=== PATIENT | female | born 1955 | race Caucasian/White ===

== ENCOUNTER 2023-05-19 15:07 | Inpatient (IN) | payer MEDICARE, SELFPAY ==
[2023-05-19] VITALS (36 sets, daily range): BP systolic 83–119; BP diastolic 44–90; BMI 31.9; BMI 32.0
[2023-05-19 12:27] LABS: % Basophils 0.2 % (0-2); % Eosinophils 0.3 % (0-6); % Immature Granulocytes 2.5 % (0-0.5); % Lymphocytes 3.1 % (20.5-51.1); % Neutrophils 87.9 % (42.2-75.2); Absolute Immature Granulocytes 0.4 10^3/uL (0-0.05); Absolute Lymphocytes 0.5 10^3/uL (1.2-3.4); Absolute Monocytes 0.9 10^3/uL (0.1-0.6); Absolute Neutrophils 12.8 10^3/uL (1.4-6.5); Hematocrit 38.8 % (37.0-47.0); Mean Corp Hgb Conc. 33.5 g/dL (33.0-37.0); Mean Corpuscular Hgb 30.1 pg (27.0-31.0); Mean Corpuscular Volume 89.8 fL (81.0-99.0); Mean Platelet Volume 9.8 fL (7.4-10.4); Nucleated Red Blood Cells % 0 %; Platelet Count 196 10^3/uL (130-400); Red Blood Cell Count 4.32 10^6/uL (4.20-5.40); Red Cell Dist. Width 13.3 % (11.5-14.5); White Blood Cell Count 14.5 10^3/uL (4.8-10.8)
[2023-05-19 12:33] LABS: COVID-19 Antigen Negative (Negative)
--- NOTE | 2023-05-19 12:36 | ED.CVA ---
History of Present Illness
General
Chief Complaint: CVA/TIA Symptoms
Source: patient
Time Seen by Provider: 05/19/23 12:17
Onset of Stroke Symptoms
Onset of symptoms known: Yes
Date of onset of symptoms: 05/19/23
Travel History
Have you had any contact with someone who has COVID-19?: No
Do you have any symptoms of coronavirus? Fever > 100 degrees, chills, cough, shortness of breath, sore throat, loss of taste or smell, muscle aches, or headache?: No
History of Present Illness
History of Present Illness:
67-year-old female presents the emergency department due to difficulty walking, leaning to the left weakness in her left arm and shortness of breath. Her symptoms began at 8 AM when she woke up.
Past History
Past History
ED Past Medical History: Asthma, COPD, Fibromyalgia, HTN, Hypercholesterolemia, Renal failure (Status post renal transplant May 2018 right kidney), Psychiatric (Anxiety) and Other (Sarcoidosis); Negative CAD
ED Past Surgical History: Cholecystectomy and Urological (Bilateral Kidney transplants)
Social History
Tobacco: Former smoker
Alcohol: Occasional
Drug: Marijuana
Personal:
Living: with family
Employment: Employed
Family History
Family History: Hypertension, Cancer (Mother had breast cancer) and Other (Son has sarcoidosis)
Review of Systems
Review of Systems
Allergies reviewed?: Yes
All Other Systems: Not applicable
Constitutional: Reports no symptoms
EENT: Reports no symptoms
Respiratory: Reports cough and trouble breathing
Cardiac: Reports no symptoms
ABD/GI: Reports no symptoms
: Reports no symptoms
Musculoskeletal: Reports no symptoms
Skin: Reports no symptoms
Neurological: Reports weakness and other (ataxia)
Endocrine: Reports no symptoms
Hematologic/Lymphatic: Reports no symptoms
Psychiatric: Reports no symptoms
Phy Exam
Physical Exam
Physical Exam:
Physical Exam
General: Ill-appearing, temperature of 100.1
Neck: supple. no meningeal signs. normal posterior pharynx
Heart: s1/s2 regular rate and rhythm, no murmur. equal radial
pulses.
HEENT: Pupils equal round reactive to light, EOMI
Lungs: Moderate respiratory distress. Rhonchi bilaterally
Abdomen: normal bowel sounds. not tender. no CVAT
Neuro: alert and oriented. no focal neurological deficits cranial nerves II through XII intact
Skin: no rash
Psychiatric: well kept. interactive and cooperative
Extremities: no edema. no calf tenderness. negative homans. good distal pulses
Scores
NIH Stroke Score
Level of Consciousness: 0 - Alert
LOC Questions: 0-Answers both correctly
LOC Commands: 0-Performs both correctly
Best Horizontal Gaze: 0-Normal
Visual Lux: 0=Normal, no visual loss
Facial Palsy: 0=Normal, symmetrical
Motor - Right Arm: 0=No drift 10 seconds
Motor - Left Arm: 0=No drift 10 seconds
Motor - Right Le-No drift 5 seconds
Motor - Left Le-No drift 5 seconds
Limb Ataxia: 0-Absent
Sensation: 0-Normal
Best Language: 0-No aphasia
Dysarthria: 0-Normal
Extinction and Inattention: 0-No abnormality
Total Score:: 0
Thrombolytic Contraindication
Inclusion and Exclusion criteria reviewed: Yes
IAT Contraindications: NIHSS < 6
Course
Orders/Labs/Results
Orders:
Orders
05/19/23 11:43
Electrocardiogram (*1) Urgent
Reason for Study: Other
Other Reason for Exam: Possible Sepsis
EKG- Treatment ONCE
05/19/23 12:06
COVID-19 Antigen Urgent
Source: Nasal Swab
Complete Blood Count/With Diff Urgent
Comprehensive Metabolic Panel Urgent
Lactic Acid Q4H
Comment: ON ICE, CANCEL 2ND ORDER IF FIRST LACTIC ACID LEVEL <2
Blood Culture Q30M
MATT Source: Blood/Venous
Specimen Description:
Comment: FROM 2 SEPARATE SITES
Influenza A+B Rapid Molecular Urgent
MATT Source: Nasal Swab
Specimen Description:
05/19/23 12:24
CT Head W/o Iv Contrast Urgent
Comment:
Reason For Exam: ataxia, left side weakness, aphasia
05/19/23 12:25
CR Chest - 2 Views Urgent
Comment:
Reason For Exam: hypoxia
05/19/23 12:44
Blood Culture Routine
MATT Source: Blood/Venous
Specimen Description:
Date Specimen was Collected: 05/19/23
Time Specimen was Collected: 12:41
05/19/23 13:38
Cefepime HCl [Maxipime] 2,000 mg IV NOW STA
Vancomycin 1 Gram/200 ml [Vancocin] 1 gram in 200 ml IV NOW
05/19/23 15:45
Lactic Acid Q4H
Comment: ON ICE, CANCEL 2ND ORDER IF FIRST LACTIC ACID LEVEL <2
Abnormal Lab Results
05/19/23
12:06
WBC 14.5 H 10^3/uL
(4.8-10.8)
Abs Immat Gran (auto) 0.4 H 10^3/uL
(0-0.05)
Absolute Neuts (auto) 12.8 H 10^3/uL
(1.4-6.5)
Absolute Lymphs (auto) 0.5 L 10^3/uL
(1.2-3.4)
Absolute Monos (auto) 0.9 H 10^3/uL
(0.1-0.6)
Immature Gran % 2.5 H %
(0-0.5)
Neutrophils % 87.9 H %
(42.2-75.2)
Lymphocytes % 3.1 L %
(20.5-51.1)
Sodium 130 L mmol/L
(135-145)
Chloride 97 L mmol/L
(98-107)
BUN 43 H mg/dl
(7-17)
Creatinine 2.8 H mg/dL
(0.6-1.0)
Glucose 188 H mg/dl
(70-99)
Total Bilirubin 2.0 H mg/dl
(0.2-1.3)
Total Protein 5.9 L g/dl
(6.3-8.2)
05/19/23 12:06
05/19/23 12:06
Vital Signs
Initial and Last Documented VS:
Initial Vital Signs
Temp Pulse Resp BP
100.1 F 72 18 109/90
05/19/23 11:39 05/19/23 11:39 05/19/23 11:39 05/19/23 11:39
Last Documented Vital Signs
Temp Pulse Resp BP Pulse Ox
100.1 F 72 18 109/90 91
05/19/23 11:39 05/19/23 11:39 05/19/23 11:39 05/19/23 11:39 05/19/23 12:22
MDM/Problems Addressed
Differential Diagnosis Includes:
Intracranial hemorrhage, CVA, bilateral pneumonia, TIA, renal failure, CHF
MDM/Problems Addressed:
67-year-old female with bilateral pneumonia, likely TIA acute on chronic renal failure, respiratory insufficiency.
Chronic conditions affecting care: COPD and Neurological disorder
Acute Exacerbation and/or Progression of Chronic Illness: COPD and Neurological disorder
*Radiology
Radiology exam reviewed: radiology read reviewed (CT head no acute findings, chest x-ray bilateral pneumonia)
*Pulse Oximetry
Patient hypoxic: yes
*EKG
Interpreted by ED Provider?: Yes
EKG Intrepretation Date: 05/19/23
EKG Intrepretation Time: 11:52
Interpretation: normal
Comparison EKG: no changes
Heart Rate: 69
Rate: normal
Rhythm: sinus
[place]: normal axis
Interval: normal interval
QRS Pattern: normal QRS
Ischemia: no ischemia
*Vessel Manager Interpretation
Rate: normal
Interpretation: normal
Heart Rate: 66
Rhythm: sinus
*Critical Care Note
Total Time (30-74mins, 75-104mins- exclusive of procedures): 30
comment:
Critical care statement: A total of 30 minutes of critical care time was provided for this patient. This includes management of unstable vital signs, evaluation of the patient at bedside, reviewing the patient's pertinent medical records, discussion
with consultants, review of old EKGs and review of pertinent medical records. This time with separate from time utilized to perform the aforementioned documented procedures
Data Reviewed
Review of Other/Old Records Reveals: Records
Source: records (Prior admission for COPD exacerbation, discharge 05-18)
Patient Management
Social determinants of health affecting care: Living situation and Strong social support
Discussion with other providers: Hospitalist and [employer] (Neurology)
Escalation/DeEscalation of care consider admission/obs:
Admit indicated
Update Note
Update Note:
Symptoms began when patient awoke
ED Attending Note
-
Portions of this chart may have been created with voice recognition software.� Occasional wrong word or��sound alike� substitutions may have occurred due to the inherent limitations of voice recognition software.
Discharge Plan
Departure
Patient Disposition: Admit
Date of Disposition: 05/19/23
Time of Disposition: 13:40
Presentation/result/management discussed w/ accepting MD/DO: Hospitalist
Condition: Fair
Discharge Problem:
Bilateral pneumonia, Acute respiratory insufficiency, Acute renal failure, TIA (transient ischemic attack)
Prescriptions:
No Action
montelukast 10 MG tablet
10 mg PO HS
escitalopram oxalate 20 MG tablet
20 mg PO HS
Patient Comments:
02/09/2022: Pt states she is taking 60mg at HS, but pharmacy fill on 02/03 is 1 20mg tab daily
aripiprazole 10 MG tablet
10 mg PO HS 0RF
carvedilol 6.25 mg Tablet
6.25 mg PO BID
prednisone 5 mg tablet
5 mg PO DAILY
Hold Instructions: Start when done with tapering steroids
tacrolimus 1 mg capsule
1 mg PO QPM
oxycodone 5 mg tablet
10 mg PO HS
Patient Comments:
02/09/2022: last filled 01/27/22, 120 tabs for 30 days from [place]
Nexlizet 180-10 mg Tablet
1 tab PO DAILY
Breztri Aerosphere 160-9-4.8 mcg/actuation HFA aerosol inhaler
2 inh INHALATION BID
nifedipine [Procardia XL] 90 mg tablet extended release 24hr
90 mg PO DAILY Qty: 30 2RF
oxycodone 5 mg Tablet
5 mg PO Q8H PRN (Reason: pain)
Medical Marijuana
1 dose PO QHS PRN (Reason: pain or anxiety)
calcium carbonate [Calcium 600] 600 mg calcium (1,500 mg) Tablet
2,000 mg PO DAILY
furosemide 20 mg tablet
20 mg PO DAILY
albuterol sulfate 90 mcg/actuation HFA aerosol inhaler
2 puff INHALATION Q4H PRN (Reason: SOB)
tacrolimus 1 mg capsule
2 mg PO DAILY
cholecalciferol (vitamin D3) [Vitamin D3] 25 mcg (1,000 unit) Tablet
1,000 unit PO DAILY
gabapentin [Neurontin] 300 mg Capsule
300 mg PO HS
prednisone 10 mg Tablet
See Rx Instructions .ROUTE .COMPLEX Qty: 30 0RF
Rx Instructions:
Take By Mouth:
40 mg daily x3 days, 30 mg daily x3 days,
20 mg daily x3 days, 10 mg daily x3 days.
Referrals:
Brenda Braga PA-C [Family Provider] -
Interventions
Interventions:
*General Assessment Last Done: 05/19/23 12:19
ED- Fall Risk Assessment Last Done: 05/19/23 12:20
*ED COVID-19 Vaccine History Last Done: 05/19/23 12:19
ED- Pulmonary Assessment Last Done: 05/19/23 12:22
ED- Neurological Assessment Last Done: 05/19/23 12:20
ED- Cardiac Assessment Last Done: 05/19/23 12:20
[2023-05-19 12:47] LABS: ALT (SGPT) 16 U/L (0-35); AST (SGOT) 17 U/L (14-36); Albumin 3.5 g/dl (3.5-5.0); Alkaline Phosphatase 88 U/L (38-126); Blood Urea Nitrogen 43 mg/dl (7-17); Calcium 8.5 mg/dl (8.4-10.2); Carbon Dioxide 24 mmol/L (22-30); Chloride 97 mmol/L (98-107); Estimated Creatinine Clearance 22 ml/min; Glucose 188 mg/dl (70-99); Potassium 4.5 mmol/L (3.5-5.1); Sodium 130 mmol/L (135-145); Total Protein 5.9 g/dl (6.3-8.2); eGFR 18.06
[2023-05-19 12:52] LABS: Lactic Acid 1.2 mmol/L (0.7-2.0)
--- NOTE | 2023-05-19 13:50 | CON.NEURO4 ---
Addendum entered and electronically signed by John Niño MD 05/19/23 15:09:
Studies reviewed.
I have personally examined the patient. I reviewed and agree with the [employer] ATTACHER's Note.
My addenda:
Awake, alert, interactive. No acute distress. Wearing O2.
Speech intact.
Follows 2-step requests w/o difficulty. No tremor.
Extra-ocular movements grossly intact.
Facial movements full and symmetric. Hearing intact to normal conversational volume.
Normal UE movements bilaterally.
Neck: full ROM.
Chest: no dyspnea
Heart: no JVD
Ext: (-) Clubbing, (-) Cyanosis, (-) Edema
IMPRESSIONS/RECOMMENDATIONS:
Abrupt onset of gait dysfunction, with leaning to the left while hypotensive
Likely sepsis with gait decline due to recrudescence of prior dysfunction associated with prior sarcoidosis
monitor and supportive care
continue current anti-suppressant medications (Tacrolimus)
no indication for antiplatelet agents for now
no indication for neuroimaging for now
eventual orthostatic blood pressures
D/W patient
Will continue to follow peripherally.
Original Note:
Documented by User: Swapna Wagoner NP 05/19/23 14:59
Consultation - Neurology 4
-
CONSULTING PHYSICIAN: John Niño MD
REFERRING PHYSICIAN: ER/Dr. Jackson
DICTATED BY: AIDAN Erickson
DATE/TIME OF REQUEST: 05/19/23
DATE/TIME OF CONSULTATION: 05/19/23
Reason for Consultation: Left-sided weakness, ataxia, aphasia
History of Present Illness:
This is a 67-year-old right-handed female who has presented to the hospital with report of fever, cough, dyspnea, left-sided weakness, aphasia, and ataxia. Patient was recently hospitalized here from 04/24/23-04/26/23 for COPD exacerbation and had a
sputum culture positive for serratia marcescens. She reports a four day history of fever, productive cough, sinus congestion, head/neck ache. Since Tuesday (05/16/23), she has been lying in bed.
Patient reports waking up today (05/19/23) at 0800 and upon getting out of bed to walk to the bathroom, she felt ataxic and was listing to the left/walking into the wall on her left side. Anything she picked up with her left hand she would drop. She
also notes having a headache, blurry vision, and that her words were not coming out right. Her speech was clear but she couldn't say what she wanted to. These symptoms lasted for a little over one hour before resolving. ER VS: 100.1 F, HR 72, BP
87/49, RR 18, 82% RA. ER labs: WBC 14.5, Na 130, Cr 2.8, glucose 188, bilirubin 2.0. CT head was obtained and is negative for any acute abnormalities. Chest xray demontrastes bilateral pneumonia. Currently, patient reports that her left hand feels
back to normal strength. She has not been out of bed to see how her gait is. She endorses a 4/10 frontal 'sinus' headache. She denies any photo/phonophobia, nausea, and vomiting. She denies any swallowing difficulty, changes in bowel/bladder, chest
pain, and palpitations. She reports that since she started feeling sick a few days ago, she has been dizzy when she stands up, has had 'jumpy' movements in her hands, and felt dyspneic. She reports having left-sided weakness symptoms once in the
past that she notes was associated with sarcoid lesions in her brain. She also reports neuropathy in bilateral feet. She is not taking any blood-thinning medications. Her sarcoidosis has been in remission for 10 years on her current steroid and
tacrolimus regimen.
Past Medical History: Sarcoidosis, migraines, HTN, HLD, ESRD, COPD, asthma, depression, anxiety osteoporosis, fibrocystic breasts, squamous cell carcinoma, peripheral neuropathy, fibromyalgia
Surgical History: Cholecystectomy, tonsillectomy, Lumbar disc surgery, renal transplant 2019, L [facility], 3 AVF
Family History: Son- sarcoidosis.
Social History: Former tobacco. Denies alcohol and illicit drug use.
Allergies: See below.
Home Medications: See below.
Review of Symptoms:
Patient denies any chest pain, GI or symptoms.
�Per the HPI.�All systems are reviewed negative except above.
Physical Exam:
The patient is afebrile, abdomen is nondistended, breathing is unlabored, skin is warm and dry, no edema. Thrush noted in mouth
NIH Stroke Scale:
I performed the NIH stroke scale on the patient on 05/19/23 at 1415. The patient scored 0 points on the NIH stroke scale assessment, which were assigned as follows: See below.
Neurologic Examination:
The patient is awake, alert and oriented x 3. She is able to follow commands and answer questions appropriately. There is no aphasia or dysarthria. On cranial nerve assessment, pupils are 3 mm bilateral, round and reactive to light and
accommodation. Visual lux are full. Extraocular movements are intact. Facial sensations are intact and bilaterally symmetrical, there is no facial asymmetry. Hearing is intact bilaterally to normal conversation volume. Tongue palate and uvula are
midline. Sternocleidomastoid strengths are full bilaterally. Motor strengths are 5/5 bilateral upper and lower extremities on medical research [place] scale. There is no drift. Mild asterixis on the right>left. Deep tendon reflexes are 1+ bilateral
upper and lower extremities and Babinski is absent bilaterally. There was no extinction noted on double simultaneous stimulation. Coordination is intact by finger to nose bilaterally.
Lab Results: See below.
Neuro Imaging:
1. CT Head 05/19/23: No acute intracranial abnormality noted.
Differentials for the patient's presentation include:
1. Left-sided weakness/ataxia, speech difficulty, and blurry vision likely due to hypotension/orthostatic hypotension/hypoxemia exacerbating old neurological sarcoidosis symptoms
2. Bilateral pneumonia causing hypoxia and likely sepsis
3. Low concern for TIA or stroke.
4. Asterixis
Patient has the following risk factors for their symptoms: Pneumonia, sepsis, hypoxic resp failure, sarcoidosis, hypotension
Recommendations:
-Treat pneumonia, supportive care per Hospitalists service.
-When patient is stable, obtain orthostatic vital signs.
-If symptoms return, consider MRI brain imaging. Do not see a role for further neurological imaging at this point.
-Checking blood work for metabolic abnormalities, see orders.
Discussed patient care with: Dr. Niño, the patient
Allergies
-
Allergies
Allergy/AdvReac Type Severity Reaction Status Date / Time
bee venom protein (honey bee) Allergy Severe Anaphylaxis Verified 04/08/22 11:46
duloxetine [From Cymbalta] Allergy Intermediate tardive Verified 04/06/22 15:13
dyskinesia
cephalexin monohydrate Allergy abdominal Verified 04/06/22 15:13
[From Keflex] pain;
tolerated
Cefepime
cimetidine Allergy Anaphylaxis Verified 04/06/22 15:13
latex [Latex] Allergy Hives Verified 04/06/22 15:13
Latex, Natural Rubber Allergy Rash Verified 04/06/22 15:13
morphine Allergy 'MAKES ME Verified 04/06/22 15:13
MEAN'
omeprazole Allergy Anaphylaxis Verified 04/08/22 11:46
oxycodone HCl Allergy 'itching Verified 04/06/22 15:13
[From OxyContin] like I'm
crawling
out of my
skin'
Penicillins Allergy Hives Verified 04/06/22 15:13
Sulfa (Sulfonamide Allergy abdominal Verified 04/06/22 15:13
Antibiotics) pain
Tricyclic Antidepressants Allergy V. TACH Verified 04/06/22 15:13
and Tricy
[Tricyclic Compounds]
Vital Signs and Labs
-
Vital Signs and Labs:
Vital Signs
Temp Pulse Resp BP Pulse Ox
100.1 F 72 18 109/90 91
05/19/23 11:39 05/19/23 11:39 05/19/23 11:39 05/19/23 11:39 05/19/23 12:22
Lab Results
05/19/23 12:06
05/19/23 12:06
Sodium 130 mmol/L (135-145) L 05/19/23 12:06
Potassium 4.5 mmol/L (3.5-5.1) 05/19/23 12:06
BUN 43 mg/dl (7-17) H 05/19/23 12:06
Glucose 188 mg/dl (70-99) H 05/19/23 12:06
Calcium 8.5 mg/dl (8.4-10.2) 05/19/23 12:06
Medications
-
Active Medications
Generic Name Dose Route Start Last Admin
Trade Name Freq PRN Reason Stop Dose Admin
Vancomycin HCl 1 gram in 200 mls @ 200 mls/hr 05/19/23 13:38
Vancocin IV 05/19/23 14:37
NOW STA
Home Medications
Medication Instructions Recorded
escitalopram oxalate 20 mg tablet 20 mg PO HS Depression 06/12/19
montelukast 10 mg tablet 10 mg PO HS Allergies 06/12/19
aripiprazole 10 mg tablet 10 mg PO HS 12/17/19
bempedoic acid 180 mg-ezetimibe 10 1 tab PO DAILY High cholesterol 02/09/22
mg tablet (Nexlizet)
budesonide 160 mcg-glycopyr 9 2 inh inhalation BID 02/09/22
mcg-formot 4.8 mcg/actuation HFA Lung/breathing issues
inhaler (Breztri Aerosphere)
carvedilol 6.25 mg tablet 6.25 mg PO BID Blood pressure 02/09/22
oxycodone 5 mg tablet 10 mg PO HS Pain 02/09/22
prednisone 5 mg tablet 5 mg PO DAILY sarcoidosis 02/09/22
tacrolimus 1 mg capsule, 1 mg PO QPM Sarcoidosis 02/09/22
immediate-release
nifedipine 90 mg tablet,extended 90 mg PO DAILY #30 tabs 02/13/22
release 24 hr (Procardia XL)
Medical Marijuana 1 dose PO QHS PRN pain or anxiety 04/06/22
oxycodone 5 mg tablet 5 mg PO Q8H PRN pain 04/06/22
albuterol sulfate 90 mcg/actuation 2 puff inhalation Q4H PRN SOB 04/24/23
aerosol inhaler
calcium carbonate 600 mg calcium 2,000 mg PO DAILY Supplement 04/24/23
(1,500 mg) tablet (Calcium)
cholecalciferol (vitamin D3) 25 1,000 unit PO DAILY Supplement 04/24/23
mcg (1,000 unit) tablet (Vitamin
D3)
furosemide 20 mg tablet 20 mg PO DAILY Fluid 04/24/23
Retention/Swelling
gabapentin 300 mg capsule 300 mg PO HS neuropathy in feet, 04/24/23
(Neurontin) RLS
tacrolimus 1 mg capsule, 2 mg PO DAILY sarcoidosis 04/24/23
immediate-release
prednisone 10 mg tablet See Rx Instructions .Route 04/26/23
.COMPLEX #30 tabs
NIH Stroke Score
Subsequent NIH Scale
Date of Subsequent NIH Scale: 05/19/23
Time of Subsequent NIH Scale: 14:15
NIH Stroke Score
Level of Consciousness: 0 - Alert
LOC Questions: 0-Answers both correctly
LOC Commands: 0-Performs both correctly
Best Horizontal Gaze: 0-Normal
Visual Lux: 0=Normal, no visual loss
Facial Palsy: 0=Normal, symmetrical
Motor - Right Arm: 0=No drift 10 seconds
Motor - Left Arm: 0=No drift 10 seconds
Motor - Right Le-No drift 5 seconds
Motor - Left Le-No drift 5 seconds
Limb Ataxia: 0-Absent
Sensation: 0-Normal
Best Language: 0-No aphasia
Dysarthria: 0-Normal
Extinction and Inattention: 0-No abnormality
Total Score:: 0

Documented by User: John Niño MD 05/19/23 15:05
Consultation - Neurology 4
-
CONSULTING PHYSICIAN: John Niño MD
REFERRING PHYSICIAN: ER/Dr. Jackson
DICTATED BY: AIDAN Erickson
DATE/TIME OF REQUEST: 05/19/23
DATE/TIME OF CONSULTATION: 05/19/23
Reason for Consultation: Left-sided weakness, ataxia, aphasia
History of Present Illness:
This is a 67-year-old right-handed female who has presented to the hospital with report of fever, cough, dyspnea, left-sided weakness, aphasia, and ataxia. Patient was recently hospitalized here from 04/24/23-04/26/23 for COPD exacerbation and had a
sputum culture positive for serratia marcescens. She reports a four day history of fever, productive cough, sinus congestion, head/neck ache. Since Tuesday (05/16/23), she has been lying in bed.
Patient reports waking up today (05/19/23) at 0800 and upon getting out of bed to walk to the bathroom, she felt ataxic and was listing to the left/walking into the wall on her left side. Anything she picked up with her left hand she would drop. She
also notes having a headache, blurry vision, and that her words were not coming out right. Her speech was clear but she couldn't say what she wanted to. These symptoms lasted for a little over one hour before resolving. ER VS: 100.1 F, HR 72, BP
87/49, RR 18, 82% RA. ER labs: WBC 14.5, Na 130, Cr 2.8, glucose 188, bilirubin 2.0. CT head was obtained and is negative for any acute abnormalities. Chest xray demontrastes bilateral pneumonia. Currently, patient reports that her left hand feels
back to normal strength. She has not been out of bed to see how her gait is. She endorses a 4/10 frontal 'sinus' headache. She denies any photo/phonophobia, nausea, and vomiting. She denies any swallowing difficulty, changes in bowel/bladder, chest
pain, and palpitations. She reports that since she started feeling sick a few days ago, she has been dizzy when she stands up, has had 'jumpy' movements in her hands, and felt dyspneic. She reports having left-sided weakness symptoms once in the
past that she notes was associated with sarcoid lesions in her brain. She also reports neuropathy in bilateral feet. She is not taking any blood-thinning medications. Her sarcoidosis has been in remission for 10 years on her current steroid and
tacrolimus regimen.
Past Medical History: Sarcoidosis, migraines, HTN, HLD, ESRD, COPD, asthma, depression, anxiety osteoporosis, fibrocystic breasts, squamous cell carcinoma, peripheral neuropathy, fibromyalgia
Surgical History: Cholecystectomy, tonsillectomy, Lumbar disc surgery, renal transplant 2019, L [facility], 3 AVF
Family History: Son- sarcoidosis.
Social History: Former tobacco. Denies alcohol and illicit drug use.
Allergies: See below.
Home Medications: See below.
Review of Symptoms:
Patient denies any chest pain, GI or symptoms.
�Per the HPI.�All systems are reviewed negative except above.
Physical Exam:
The patient is afebrile, abdomen is nondistended, breathing is unlabored, skin is warm and dry, no edema. Thrush noted in mouth
NIH Stroke Scale:
I performed the NIH stroke scale on the patient on 05/19/23 at 1415. The patient scored 0 points on the NIH stroke scale assessment, which were assigned as follows: See below.
Neurologic Examination:
The patient is awake, alert and oriented x 3. She is able to follow commands and answer questions appropriately. There is no aphasia or dysarthria. On cranial nerve assessment, pupils are 3 mm bilateral, round and reactive to light and
accommodation. Visual lux are full. Extraocular movements are intact. Facial sensations are intact and bilaterally symmetrical, there is no facial asymmetry. Hearing is intact bilaterally to normal conversation volume. Tongue palate and uvula are
midline. Sternocleidomastoid strengths are full bilaterally. Motor strengths are 5/5 bilateral upper and lower extremities on medical research [place] scale. There is no drift. Mild asterixis on the right>left hand. Deep tendon reflexes are 1+
bilateral upper and lower extremities and Babinski is absent bilaterally. There was no extinction noted on double simultaneous stimulation. Coordination is intact by finger to nose bilaterally.
Lab Results: See below.
Neuro Imaging:
1. CT Head 05/19/23: No acute intracranial abnormality noted.
Differentials for the patient's presentation include:
1. Left-sided weakness/ataxia, speech difficulty, and blurry vision likely due to hypotension/orthostatic hypotension/hypoxemia exacerbating old neurological sarcoidosis symptoms
2. Bilateral pneumonia causing hypoxia and likely sepsis
3. Low concern for TIA or stroke.
4. Asterixis
Patient has the following risk factors for their symptoms: Pneumonia, sepsis, hypoxic resp failure, sarcoidosis, hypotension
Recommendations:
-Treat pneumonia, supportive care per Hospitalists service.
-When patient is stable, obtain orthostatic vital signs.
-If symptoms return, consider MRI brain imaging. Do not see a role for further neurological imaging at this point.
-Checking blood work for metabolic abnormalities, see orders.
Discussed patient care with: Dr. Niño, the patient
NIH Stroke Score
NIH Stroke Score
Total Score:: 0
--- NOTE | 2023-05-19 13:58 | HPS.HSE ---
Addendum entered and electronically signed by Junior Pleitez DO 05/19/23 15:40:
Patient seen/examined, and discussed with LAKISHA Domínguez, and I agree with her note.
Gen-AAOx3, NAD
HEENT-NC, AT, anicteric
Neck-supple
CV-reg, no M
Lungs-clear with diminished BS at bases
Abd-soft, obese, NT, ND
Ext-no edema
Acute Hypoxic Resp Failure - suspect due to bilateral pneumonia, underlying COPD, sarcoidosis. COVID-19 negative.
Septic shock due to CAP - admit to ICU, start IVF, vasopressors, IV antibiotics to cover serratia given recent sputum culture. Music Mixer consult. Blood cultures. CXR notes bilateral infiltrates.
Stress dose steroids given suspected secondary adrenal insuff due to chronic steroid exposure.
SIMBA on CKD 3b - SIMBA likely due to septic shock. Consult nephrology in light of renal transplant status, immunosuppresion. Hold Lasix.
Hx renal transplant - continue meds.
Hyponatremia - suspect hypovolemic in nature. IVF.
Hyperglycemia - ?hx of diabetes. Check HgbA1c.
Left sided weakness - NIH zero in ED. CT head negative. Doubt acute stroke. Appreciate neurology input.
COPD without acute exacerbation
Hx Sarcoidosis
Essential HTN - hold meds for hypotension/shock.
Chronic pain syndrome/chronic opiate dependence
Obesity due to excess calories
Full code
Addendum entered and electronically signed by AIDAN Kisre 05/19/23 14:45:
PROB ADDENDUM
#SIMBA /Hx bilat renal transplants
creat 2.8 was 1.9 on 04/26/23 baseline appears 2.0
- consult nephro
Original Note:
Family Physician
-
Family Physician: Brenda Braga
Chief Complaint
-
Fever, cough, sore throat, headache, sinus congestion x 4 days, ataxia, aphasia since 8 AM resolved
History of Present Illness
70-year-old female presenting to the ER complaining difficulty walking with leaning to left side along with aphasia and word replacement that started at 8 AM. She states her words were clear when she was talking to her but they were not
correct words she was using. She reports feeling sick for the past 4 days she has been in bed for the past 3 days with fever, productive green to bloody cough, headache, sinus congestion and neck pain. She reports a fever last night of 101 F. She
does not recall fever this a.m. during her symptoms. She is not on any chronic oxygen. She denies sick contacts, chest pain, palpitations, sore throat, abdominal pain, nausea, vomiting, diarrhea, urinary symptoms.
In the ER she was noted to be hypoxic at 82% on room air on arrival improved to 91% on 5 L nasal cannula with chest x-ray showing bilateral pneumonia , low-grade temp of 100.1 F and hypotension 87/49
The patient had a recent admission 04/24 - 04/26/2023 for COPD exacerbation with hypoxia treated with IV steroids, nebulizers transition to oral prednisone. Review of her sputum culture shows Patient had sputum culture on 04/26/2023 positive for
Serratia Marcescens.
Medical History
Past Medical History
Past Medical History: Reports COPD, HTN and Renal Failure
Additional Past Medical History:
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
-Chronic pain/fibromyalgia
-Neuropathy to feet
Anxiety depression
HLD
Past Surgical History: Reports Cholecystectomy
Additional Past Surgical History:
Renal transplant(bilateral renal transplants from live donor
Tonsillectomy
Cholecystectomy
Lumbar disc surgery
Left hip replacement
3 fistulas left arm, 2 fistulas right arm for prior ESRD
Squamous cell skin removal to chest
Social History
Tobacco: Other (Still smoking marijuana medical marijuana does not vape)
Alcohol: Occasional
Drug: Marijuana and Other
Personal:
Living: With Family
Employment: Employed
Family History
Family History: Not pertinent
Allergies / Home Medications
Allergies reflects when Allergies were last updated in [employer].
Home Medications with original date entered in [employer]
Allergy/Medication List:
Allergies
Allergy/AdvReac Type Severity Reaction Status Date / Time
bee venom protein (honey bee) Allergy Severe Anaphylaxis Verified 04/08/22 11:46
duloxetine [From Cymbalta] Allergy Intermediate tardive Verified 04/06/22 15:13
dyskinesia
cephalexin monohydrate Allergy abdominal Verified 04/06/22 15:13
[From Keflex] pain;
tolerated
Cefepime
cimetidine Allergy Anaphylaxis Verified 04/06/22 15:13
latex [Latex] Allergy Hives Verified 04/06/22 15:13
Latex, Natural Rubber Allergy Rash Verified 04/06/22 15:13
morphine Allergy 'MAKES ME Verified 04/06/22 15:13
MEAN'
omeprazole Allergy Anaphylaxis Verified 04/08/22 11:46
oxycodone HCl Allergy 'itching Verified 04/06/22 15:13
[From OxyContin] like I'm
crawling
out of my
skin'
Penicillins Allergy Hives Verified 04/06/22 15:13
Sulfa (Sulfonamide Allergy abdominal Verified 04/06/22 15:13
Antibiotics) pain
Tricyclic Antidepressants Allergy V. TACH Verified 04/06/22 15:13
and Tricy
[Tricyclic Compounds]
Home Medications
escitalopram oxalate 20 mg tablet 20 mg PO HS Depression 06/12/19
montelukast 10 mg tablet 10 mg PO HS Allergies 06/12/19
aripiprazole 10 mg tablet 10 mg PO HS 12/17/19
bempedoic acid 180 mg-ezetimibe 10 mg tablet (Nexlizet) 1 tab PO DAILY High cholesterol 02/09/22
budesonide 160 mcg-glycopyr 9 mcg-formot 4.8 mcg/actuation HFA inhaler (Breztri Aerosphere) 2 inh inhalation R BID Lung/breathing issues 02/09/22
carvedilol 6.25 mg tablet 6.25 mg PO BID Blood pressure 02/09/22
oxycodone 5 mg tablet 10 mg PO HS Pain 02/09/22
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
tacrolimus 1 mg capsule, immediate-release 1 mg PO QPM Sarcoidosis 02/09/22
nifedipine 90 mg tablet,extended release 24 hr (Procardia XL) 90 mg PO DAILY #30 tabs 02/13/22
Medical Marijuana 1 dose PO QHS PRN pain or anxiety 04/06/22
oxycodone 5 mg tablet 5 mg PO Q8HPRN PRN severe pain 04/06/22
albuterol sulfate 90 mcg/actuation aerosol inhaler 2 puff inhalation R Q4HPRN PRN SOB 04/24/23
calcium carbonate 600 mg calcium (1,500 mg) tablet (Calcium) 600 mg PO DAILY Supplement 04/24/23
cholecalciferol (vitamin D3) 25 mcg (1,000 unit) tablet (Vitamin D3) 1,000 unit PO DAILY Supplement 04/24/23
furosemide 20 mg tablet 20 mg PO DAILY Fluid Retention/Swelling 04/24/23
gabapentin 300 mg capsule (Neurontin) 300 mg PO HS neuropathy in feet, RLS 04/24/23
tacrolimus 1 mg capsule, immediate-release 2 mg PO DAILY sarcoidosis 04/24/23
Review of Systems
-
History Source: Patient
A 12 point ROS was completed and negative except as noted: Yes
Constitutional: Reports Fever, Fatigue and Chills
EENT: Reports Other; Denies Sore Throat
Respiratory: Reports Cough (Productive green in color) and Trouble Breathing
Cardiac: Denies Chest Pain, Diaphoresis or Palpitations
Abdomen/GI: Denies Abdominal Pain, Nausea, Vomiting, Diarrhea, Constipated, Bloody Stools or Black Stools
: Denies Dysuria, Frequency, Flank Pain, Incontinence or Difficulty Voiding
Musculoskeletal: Denies Joint Pain or Edema
Skin: Denies Itching or Rash
Neurological: Reports Dizzy and Headache (Frontal head)
Endocrine: Reports No Symptoms
Hematologic/Lymphatic: Reports No Symptoms
Psych: Reports Calm
Physical Exam
Vital Signs
Vital Signs
Temp Pulse Resp BP Pulse Ox
100.1 F 72 18 109/90 91
05/19/23 11:39 05/19/23 11:39 05/19/23 11:39 05/19/23 11:39 05/19/23 12:22
Physical Exam
General: Comfortable, Conversant, Fever and Chills; No Pain
HEENT: NormoCephalic, Anicteric, Moist mucous membranes, PERRLA, [place] Conjunctivae and Other (Negative nuchal rigidity)
Respiratory: Clear; No Wheezes, Rales or Rhonchi
Cardiac: S1/S2 and Regular Rhythm; No Murmur, Rub, Gallop or Peripheral Edema
Breast: Deferred by me
GI: Soft, Non Tender, Non Distended, Normal Bowel Sounds and No Hepatosplenomegaly
Rectal: Deferred by Provider
Genito-urinary: Deferred by me
Musculoskeletal: No Clubbing, No Cyanosis and No Edema
Skin: Warm and Dry
Neuro: AO x 3, No Motor Deficits, Nonfocal/grossly intact, Cranial Nerves Intact, No Sensory Deficits and Other (EOMs intact, negative nystagmus, tongue midline, speech clear 5 out of 5 upper and lower motor strength, no appreciated neurological
deficits); No Slurred Speech, Facial Droop or Tremors
Psych: Calm
Laboratory Results
-
05/19/23 12:06
05/19/23 12:06
Laboratory Results
Lactic Acid 1.2 mmol/L (0.7-2.0) 05/19/23 12:06
Total Bilirubin 2.0 mg/dl (0.2-1.3) H 05/19/23 12:06
AST 17 U/L (14-36) 05/19/23 12:06
ALT 16 U/L (0-35) 05/19/23 12:06
Alkaline Phosphatase 88 U/L (38-126) 05/19/23 12:06
Impression/Plan
-
Impression/plan:
Admit to ICU
#Septic shock secondary to bilateral pneumonia
#Acute hypoxic resp failure 2/2 bilateral PNA
WBC 14.5 with left shift, 100.1 F, HR 72, 109/90
82% RA, 91% 5L NC
COVID/FLU-negative
-Blood cultures x 2, sputum culture
-Patient had sputum culture on 04/26/2023 positive for Serratia Marcescens
-IV Cefepime
-Iv solucortef 100 mg now then 50 mg q8h (stress dose as patient is on prednisone 5 mg daily)
-Incentive spirometry
-DuoNebs as needed
-IV NSS 2500 cc
-Iv Levophed
-Consult ct tech
CXR: Bilateral pneumonia new from prior 04/24/2023
CT head: No acute intracranial abnormality
#Hypotension 2/2 to septic shock /HTN�benign
-Hold nifedipine XL, carvedilol 6.25 mg twice daily
#Left-sided weakness concern for CVA/TIA versus metabolic
-Consult neurology-additional testing per neuro recommendations
#Hx COPD- no acute exacerbation
-Had recent exacerbation 04/24 - 04/26/2023 treated with IV steroids/oral prednisone taper and nebulizer
#Renal transplant bilateral(live donor) May 2018 [facility]
-Continue tacrolimus
-On prednisone 5 mg daily will hold as we are giving stress dose steroids
-Patient follows with Dr. Mayfield
#Anxiety/depression
-Continue Lexapro, Abilify
#Chronic pain
-Continue oxycodone
DVT prophylaxis
SCDs
Full code
[2023-05-19] MEDS: MAXIPIME 2000 MG IV (14:11)
[2023-05-19] MEDS: VANCOCIN 200 IV (14:29)
[2023-05-19] MEDS: NSS 1000 IV ×3 (14:35→21:53)
[2023-05-19] MEDS: TYLENOL 650 MG PO ×2 (14:38→20:28)
[2023-05-19 15:06] LABS: Erythrocyte Sed Rate 56 mm/hour (0-20)
[2023-05-19] MEDS: LEVOPHED 250 IV (15:19)
[2023-05-19] MEDS: SOLU-CORTEF 100 MG IV (15:21)
--- NOTE | 2023-05-19 16:10 | CON.MD ---
Consultation - Medical
-
Assessment:
PNA
SIMBA on CKD (bl Cr ~2)
Living unrelated kidney transplant at [facility] in 2019
HTN
Hx sarcoidosis
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
COPD
Fibromyalgia
DLD
Chronic Pain
Anxiety/Depression
Plan:
SIMBA on CKD
- most likely pre-renal/ ATN from sepsis
- Cr baseline around 2, risen to 2.8 (has had AKIs in the past)
- please continue all IS (prednisone 5 and tacrolimus)
- tac level ordered for AM
- obtain UA, Txp kidney US
- Continue IVF, hold antihypertensives at this time as BPs soft
- UOP stable, no changes noted
- trend BMPs
--- NOTE | 2023-05-19 16:12 | CON.INTV ---
Consultation
Consultation Request
Date/Time Consultation Requested: 05/19/2023 - 1424
Date/Time Consultation Performed: 05/19/2023 - 1739
Requesting Provider: Margaret BERMUDEZ
Performing Provider: Dr. Castelan
Reason for Consultation: Septic shock
Medical History
-
Chief Complaint: Shortness of breath/cough
History of Present Illness:
67-year-old female with a past medical history of sarcoidosis, moderate COPD with air trapping, asthma, depression, renal transplant on chronic immunosuppression and hypertension who presents with shortness of breath and cough. She says her
symptoms started on Tuesday and then progressed. Patient says she has been having cough, headache and shortness of breath. She thinks her son may have gotten her sick as he had similar symptoms few weeks ago. CXR shows bilateral pneumonia. She
was started on cefepime/vancomycin, and found to be hypotensive despite getting 2 L of NS 0.9%. Levophed was started and patient now being transferred to the ICU for further care. Kitchen Helper services consulted for additional
recommendations/management.
Patient follows with us in the [facility] office with Dr. Perez. Last office visit in July 2022. She uses Breztri for her COPD/asthma, and takes prednisone 5 mg a day as she has a history of renal transplant as complication of ESRD from sarcoidosis.
She is currently on 6 L/min saturating 93%. She was told to obtain a sleep study in the office but she has not done this yet. Of note, she was diagnosed with sarcoidosis in 1988 and was initially diagnosed via chest imaging. She had
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 Her last PFT was done in July 2022 showing a moderate obstructive lung defect without a bronchodilator response. There was evidence of air
trapping with RV of 141% predicted, and a mild�moderate gas exchange capacity defect with DLCO of 53% predicted (DLco/VA: 51%).
When I saw the patient she was in bed, no acute distress, on Levophed at 2mcg/min with BP 94/55. She says she feels better but still feels dizzy when she sits up. She normally does not wear oxygen at home. She denies chest pain, headache, chills.
She feels generally weak.
PMHx: COPD, asthma, history of CKD/ESRD secondary to sarcoidosis s/p living unrelated kidney transplant (2018 � [facility]), chronic immunosuppression use, history of migraines, depression, history of pulmonary sarcoidosis with extrapulmonary sarcoidosis,
fibrocystic breast disease, osteoporosis due to long-term steroid use, cataracts, history of pneumonia, anemia, anxiety, history of COVID-19 (December 2020)
PSHx: Cholecystectomy, section X.3, laparoscopy for fertility problems, tonsillectomy, uterine biopsy, liver biopsy, kidney biopsy, renal transplant (May 2018) back surgery (April 2022)
Past Medical History
Past Medical History: Other (Above as per HPI)
Past Surgical History: Other (Above as per HPI)
Social History
Tobacco: Former Smoker (Smoked for 40 years, [id number] history, quit April 2014)
Alcohol: Occasional
Drug: Marijuana (Medical marijuana)
Family History
Family History: CAD (Mother) and Other (Sarcoidosis: Son)
Allergies / Home Medications
Allergies
Allergy/AdvReac Type Severity Reaction Status Date / Time
bee venom protein (honey bee) Allergy Severe Anaphylaxis Verified 04/08/22 11:46
duloxetine [From Cymbalta] Allergy Intermediate tardive Verified 04/06/22 15:13
dyskinesia
cephalexin monohydrate Allergy abdominal Verified 04/06/22 15:13
[From Keflex] pain;
tolerated
Cefepime
cimetidine Allergy Anaphylaxis Verified 04/06/22 15:13
latex [Latex] Allergy Hives Verified 04/06/22 15:13
Latex, Natural Rubber Allergy Rash Verified 04/06/22 15:13
morphine Allergy 'MAKES ME Verified 04/06/22 15:13
MEAN'
omeprazole Allergy Anaphylaxis Verified 04/08/22 11:46
oxycodone HCl Allergy 'itching Verified 04/06/22 15:13
[From OxyContin] like I'm
crawling
out of my
skin'
Penicillins Allergy Hives Verified 04/06/22 15:13
Sulfa (Sulfonamide Allergy abdominal Verified 04/06/22 15:13
Antibiotics) pain
Tricyclic Antidepressants Allergy V. TACH Verified 04/06/22 15:13
and Tricy
[Tricyclic Compounds]
Home Medications
Medication Instructions Recorded Confirmed Last Taken Type
escitalopram oxalate 20 mg tablet 20 mg PO HS Depression 06/12/19 05/19/23 05/18/23 History
montelukast 10 mg tablet 10 mg PO HS Allergies 06/12/19 05/19/23 05/18/23 History
aripiprazole 10 mg tablet 10 mg PO HS 12/17/19 05/19/23 05/18/23 Rx
bempedoic acid 180 mg-ezetimibe 10 1 tab PO DAILY High cholesterol 02/09/22 05/19/23 05/19/23 History
mg tablet (Nexlizet)
budesonide 160 mcg-glycopyr 9 2 inh inhalation R BID 02/09/22 05/19/23 05/19/23 History
mcg-formot 4.8 mcg/actuation HFA Lung/breathing issues
inhaler (Breztri Aerosphere)
carvedilol 6.25 mg tablet 6.25 mg PO BID Blood pressure 02/09/22 05/19/23 05/19/23 History
oxycodone 5 mg tablet 10 mg PO HS Pain 02/09/22 05/19/23 05/18/23 History
prednisone 5 mg tablet 5 mg PO DAILY senior living 02/09/22 05/19/23 05/19/23 History
tacrolimus 1 mg capsule, 1 mg PO QPM Sarcoidosis 02/09/22 05/19/23 05/18/23 History
immediate-release
nifedipine 90 mg tablet,extended 90 mg PO DAILY #30 tabs 02/13/22 05/19/2324 Rx
release 24 hr (Procardia XL)
Medical Marijuana 1 dose PO QHS PRN pain or anxiety 04/06/22 05/19/23 Unknown History
oxycodone 5 mg tablet 5 mg PO Q8HPRN PRN severe pain 04/06/22 05/19/23 Unknown History
albuterol sulfate 90 mcg/actuation 2 puff inhalation R Q4HPRN PRN SOB 04/24/23 05/19/23 Unknown History
aerosol inhaler
calcium carbonate 600 mg calcium 600 mg PO DAILY Supplement 04/24/23 05/19/23 05/19/23 History
(1,500 mg) tablet (Calcium)
cholecalciferol (vitamin D3) 25 1,000 unit PO DAILY Supplement 04/24/23 05/19/23 05/19/23 History
mcg (1,000 unit) tablet (Vitamin
D3)
furosemide 20 mg tablet 20 mg PO DAILY Fluid 04/24/23 05/19/23 05/19/23 History
Retention/Swelling
gabapentin 300 mg capsule 300 mg PO HS neuropathy in feet, 04/24/23 05/19/23 05/18/23 History
(Neurontin) RLS
tacrolimus 1 mg capsule, 2 mg PO DAILY sarcoidosis 04/24/23 05/19/23 05/19/23 History
immediate-release
Review of Systems
-
History Source: Patient
All other systems: Negative unless noted (12 point ROS performed and is negative unless mentioned above.)
Vitals / Labs / Diagnostic Testing
Vital Signs
Temp Pulse Resp BP Pulse Ox
98.7 F 61 19 92/63 85
05/19/23 15:29 05/19/23 15:30 05/19/23 15:30 05/19/23 15:30 05/19/23 15:30
Lab Data
05/19/23 12:06
05/19/23 12:06
Microbiology
05/19/23 12:06 Nasal Swab Influenza Types A & B (BALJEET) - Final
Negative for Influenza A & B, NAAT
Negative results must be combined with clinical observations
and patient history.
Nucleic Acid Amplification test (NAAT)performed on the
[employer] platform.
Diagnostic Testing:
Physical Exam
-
HEENT: Normocephalic and Anicteric
Cardiovascular: S1/S2 and Peripheral Edema (Negative)
Respiratory: Wheeze (Bilateral and end-expiratory ), Rales (Negative), Rhonchi (Bilaterally) and Accessory Resp Muscle Use (Negative)
GI: Soft, Non Distended, Non Tender and Normal Bowel Sounds
Neurology: AO x 3
Skin: Warm and Dry
General: Comfortable and Chills (Negative)
Assessment
-
Assessment: 67-year-old female with a past medical history of sarcoidosis, moderate COPD with air trapping, asthma, depression, renal transplant on chronic immunosuppression and hypertension who presents with shortness of breath and cough. She
says her symptoms started on Tuesday and then progressed. Patient says she has been having cough, headache and shortness of breath. She thinks her son may have gotten her sick as he had similar symptoms few weeks ago. CXR shows bilateral
pneumonia. She was started on cefepime/vancomycin, and found to be hypotensive despite getting 2 L of NS 0.9%. Levophed was started and patient now being transferred to the ICU for further care. Kitchen Helper services consulted for additional
recommendations/management.
Of note, she was recently hospitalized from 04/24/202304/26/2023 after experiencing severe respiratory distress with acute hypoxemic respiratory failure after being exposed to burn/vaporized potpourri. She was on antibiotics at the time and
steroids however her white blood cell count was normal at that time. Her respiratory culture on 04/26/2023 grew Serratia marcescens.
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
Impression:
#Septic shock due to CAP
#History of COPD/asthma with acute exacerbation due to pneumonia
#Anemia
#Acute kidney injury on CKD due to septic shock with ATN
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
#Former tobacco use disorder
#Obesity and at risk for JOHN
Plan:
- Fluid resuscitation with crystalloids while monitoring for acute pulmonary edema +/- acute hypoxia
- Continue Levophed and maintain MAP >65
- Currently on Solu-Cortef - will give for 3 days and then wean as tolerated
- Goal BG 140-180
- continue ABx with rocepin and will add azithromycin given Hx of COPD - would give 7 days of beta-lactam and 5 days zithromax
- DuoNebs and budesonide as takes Breztri at home
- Transfuse blood products as needed to keep Hb>7g/dL and plt>50k
- Replete K>4, Mg>2
- Stress ulcer prophylaxis
- DVT ppx
Critical care statement (patient seen on 05/19/2023): A total of 40 minutes of critical care time was provided for this patient today. This includes management of unstable vital signs, evaluation of the patient at bedside, reviewing the patient's
pertinent medical records including radiographs, microbiology, laboratory evaluations, and discussion with primary team, consultants, pharmacy, nutrition, physical therapy, case management, charge nurse, critical care nursing, and respiratory
therapy.
Data:
CXR 05-19-2023: Bilateral pneumonia, new from prior (CXR from 04/24/2023)
Outpatient [facility]MA Data:
PFT:
������ PFT 04/02/08-FEV1 1.65 L-56%, FVC 2.81 L-75%, no significant BD response
�������Spirometry 07/04/20-FEV1 1.14 L-44%, FVC 1.96 L-58%, no significant BD response except at the small airway level. Moderate obstruction.
�������PFT 01/19/22-Patient was a late cancellation
�������PFT 08/16/22-FEV1 1.47-58%, FVC 2.59-70%, no significant BD response, TLC 100%, RV 100%, DLCO 53%. Mild obstruction and moderate reduction in diffusing capacity.
6 MWT:
������ 6 minute walk test 07/04/20-Ambulated 600 feet with desaturation mi 91% and maximum heart rate 66. No supplemental oxygen required.
�������6 minute walk test 01/19/22-Patient was a late cancellation
�������6 minute walk test 08/16/22-Ambulated 953, desaturation mi 92% and maximum heart rate of 82. Maximum dyspnea scale score 0. No supplemental oxygen required.
FENO:
������ FeNO 07/04/20- 14 ppb
�������FeNO 01/19/22-Patient was a late cancellation
�������FeNO 08/16/22- 6 ppb.
RADIOGRAPHIC STUDIES:
������ CT chest 10/01/13-Interval improvement in findings of sarcoidosis, interval improvement in soft tissue component of mediastinal and hilar lymphadenopathy, interval improvement in interstitial groundglass opacifications
�������Chest x-ray 06/13/20-lungs clear, calcified hilar lymph nodes, unchanged compared with 12/14/19.
CARDIAC STUDIES:
������ Echocardiogram 03/23/16-EF 55-60%, mild mitral regurgitation.
�������Echocardiogram 06/13/20-EF 65-70%, aortic sclerosis without stenosis, no significant valvular disease.
�������Stress test 07/02/20-EF 70%, moderate risk study, no change compared to 11/28/14.
�������Echocardiogram 03/06/21-EF 60-65%, no significant valvular disease.
LABS:
������ Eosinophils12/17/19-100
�������IgE 09/14/11-14
�������ILD. Serology 09/14/11-negative
�������Allergy panel and hypersensitivity panel 09/13/17-negative
�������ABG 06/12/19--7.35
�������WESLEY 09/26/12-126
�������WESLEY 09/14/11-218
�������WESLEY 01/08/10-61
�������WESLEY 04/29/07-181
�������Bronchoscopy 09/2011-negative AFB, fungus, TB, and cytology,
�������ABG 06/12/19-7.35
�������Hemoglobin 04/08/22-14.1.
[2023-05-19 16:45] LABS: TSH Reflex To Free T4 2.18 uIU/ml (0.47-4.68)
[2023-05-19 17:20] LABS: Folate 12.8 ng/ml (2.76-20); Vitamin B12 630 pg/ml (239-931)
--- NOTE | 2023-05-19 20:00 | PTCARENOTE ---
pt admitted to 3369 from ER. levo infusing at 2mcg. BP stable. pt alert and oriented x3. pupils b/l 3mm brisk. strength equal bilaterally. 6L NC, denies SOB. rhonchi breath sounds on expiration. SR on monitor. afebrile. + bs, clear liquids ordered.
purewick in place. pt repositioned, CHG bath done. labs sent. at bedside to say derick. pt care ongoing.
[2023-05-19] MEDS: NSS 500 IV (20:26)
[2023-05-19] MEDS: NEURONTIN 300 MG PO (20:27)
[2023-05-19] MEDS: PROGRAF 1 MG PO (20:27)
[2023-05-19] MEDS: ROXICODONE 10 MG PO (20:27)
[2023-05-19] MEDS: ABILIFY 10 MG PO (20:27)
[2023-05-19] MEDS: SINGULAIR 10 MG PO (20:27)
[2023-05-19] MEDS: LEXAPRO 20 MG PO (20:27)
[2023-05-19 21:29] LABS: INR 1.24; PT 15.8 Sec (11.4-14.6)
[2023-05-19 21:30] LABS: APTT 43.8 Sec (23.4-35.0)
[2023-05-19] MEDS: TUMS 1 TABLET PO ×2 (21:53→22:15)
[2023-05-19] MEDS: SOLU-CORTEF 50 MG IV (23:22)
[2023-05-19] MEDS: TYLENOL PO (23:22)
--- NOTE | 2023-05-19 23:53 | PTCARENOTE ---
pt reassessed. denies pain. systems unchanged. UA sent. levo gtt infusing per parameters (MAP goal >65). pt care ongoing.
[2023-05-20] VITALS (58 sets, daily range): BP systolic 88–144; BP diastolic 47–107; PULSE 55; O2SAT 94–96; BMI 32.1; BMI 32.0
[2023-05-20 00:02] LABS: Urine Albumin Trace (Neg - Trace); Urine Bilirubin Negative (Negative); Urine Character Clear (Clear); Urine Color Yellow; Urine Glucose 1+ (Negative); Urine Ketone Negative (Negative); Urine Leukocyte Negative (Negative); Urine Nitrite Negative (Negative); Urine Occult Blood Negative (Negative); Urine Urobilinogen Negative (Neg - 1+)
--- NOTE | 2023-05-20 00:05 | PTCARENOTE ---
during admission assessment, patient admitted to use of medical marijuana daily. ICU POWER PLANT INSPECTOR notified.
[2023-05-20 05:11] LABS: % Basophils 0.1 % (0-2); % Immature Granulocytes 1.7 % (0-0.5); % Lymphocytes 2.9 % (20.5-51.1); % Monocytes 3.7 % (1.7-9.3); % Neutrophils 91.6 % (42.2-75.2); Absolute Immature Granulocytes 0.2 10^3/uL (0-0.05); Absolute Lymphocytes 0.3 10^3/uL (1.2-3.4); Absolute Monocytes 0.4 10^3/uL (0.1-0.6); Absolute Neutrophils 8.9 10^3/uL (1.4-6.5); Hematocrit 34.7 % (37.0-47.0); Hemoglobin 11.7 g/dL (12.0-16.0); Mean Corp Hgb Conc. 33.7 g/dL (33.0-37.0); Mean Corpuscular Hgb 30.6 pg (27.0-31.0); Mean Corpuscular Volume 90.8 fL (81.0-99.0); Nucleated Red Blood Cells % 0 %; Platelet Count 155 10^3/uL (130-400); Red Blood Cell Count 3.82 10^6/uL (4.20-5.40); Red Cell Dist. Width 12.9 % (11.5-14.5); White Blood Cell Count 9.8 10^3/uL (4.8-10.8)
[2023-05-20] MEDS: TYLENOL PO ×5 (05:12→15:57)
[2023-05-20] MEDS: NSS 1000 IV (05:12)
--- NOTE | 2023-05-20 05:31 | PTCARENOTE ---
pt reassessed. systems unchanged. levo gtt infusing to maintain MAP >65. AM labs sent. pt repositions self. pt care ongoing.
[2023-05-20 05:37] LABS: ALT (SGPT) 13 U/L (0-35); AST (SGOT) 14 U/L (14-36); Albumin 2.5 g/dl (3.5-5.0); Alkaline Phosphatase 67 U/L (38-126); Blood Urea Nitrogen 50 mg/dl (7-17); Calcium 8.3 mg/dl (8.4-10.2); Carbon Dioxide 21 mmol/L (22-30); Chloride 102 mmol/L (98-107); Estimated Creatinine Clearance 20 ml/min; Glucose 276 mg/dl (70-99); Potassium 4.6 mmol/L (3.5-5.1); Sodium 133 mmol/L (135-145); Total Bilirubin 0.8 mg/dl (0.2-1.3); Total Protein 4.9 g/dl (6.3-8.2); eGFR 16.63
--- NOTE | 2023-05-20 07:47 | W.PN.HOSP.TC ---
Today's Communication/Plan
-
Add midodrine
Wean Levophed
Wean oxygen
Continue antibiotics
Assessment / Plan
Assessment / Plan
Gen-AAOx3, NAD, obese
HEENT-NC, AT, anicteric, clear oral mm
Neck-supple
CV-reg, no M, +S1/S2
Lungs-clear B/L
Abd-soft, NT, ND
Ext-no edema
Musculoskeletal-no cyanosis, clubbing
Skin-warm and dry
Neuro-grossly non-focal
Psych-calm, cooperative
Acute Hypoxic Resp Failure - suspect due to bilateral pneumonia, underlying COPD, sarcoidosis. COVID-19 negative, influenza negative. Currently on 6 L nasal cannula oxygen, wean down as able.
Septic shock due to CAP -continue ceftriaxone given sensitivity to recent sputum culture to Serratia. Blood cultures pending. CXR notes bilateral infiltrates. WBCs normalized. Afebrile today. Currently on 2 mcg of Levophed, wean to off, start
midodrine.
Stress dose steroids given suspected secondary adrenal insuff due to chronic steroid exposure.
SIMBA on CKD 3b - SIMBA likely due to septic shock. Creatinine up to 3.0 today. Nephrology following. Hold Lasix.
Bradycardia -asymptomatic. Hold carvedilol. TSH 2.18.
Hx renal transplant - continue meds.
Hyponatremia - suspect hypovolemic in nature. IVF. Sodium improving, 133.
Hyperglycemia -patient denies history of diabetes. Check HgbA1c.
Left sided weakness - NIH zero in ED. CT head negative. Doubt acute stroke. Appreciate neurology input.
COPD without acute exacerbation
Hx Sarcoidosis
Essential HTN - hold meds for hypotension/shock.
Chronic pain syndrome/chronic opiate dependence
Obesity due to excess calories
Full code
Anticipated Discharge: > 48 hours
Subjective/Interval History
-
Date of Service: May 20, 2023
Patient seen and examined, denies cough or shortness of breath. Looks comfortable. No complaints.
Objective Data
-
Labs:
Laboratory Results
05/19/23 05/19/23 05/20/23
20:43 21:12 04:57
WBC 9.8
Hgb 11.7 L
Hct 34.7 L
Plt Count 155 D
PT Cancelled 15.8 H
INR Cancelled 1.24
APTT Cancelled 43.8 H
Sodium 133 L
Potassium 4.6
Chloride 102
Carbon Dioxide 21 L
BUN 50 H
Creatinine 3.0 H
Glucose 276 H
Calcium 8.3 L
Total Bilirubin 0.8 D
AST 14
ALT 13
Alkaline Phosphatase 67
Vital Signs:
Vital Signs
Temp Pulse Resp BP Pulse Ox
97.5 F 50 11 105/62 94
05/20/23 05:09 05/20/23 06:45 05/20/23 06:45 05/20/23 06:45 05/20/23 06:45
I&O
05/19/23 05/20/23 05/21/23
06:59 06:59 06:59
Intake Total 1732.5 / 1732.5
Output Total 700 / 700
Balance 1032.5 / 1032.5
Review of Systems
-
History Source: Patient
All other systems: Reviewed and negative
[2023-05-20 08:20] LABS: Glucose - Point of Care 240 mg/dl (70-99)
[2023-05-20] MEDS: ProAmatine 10 MG PO ×3 (08:48→18:13)
[2023-05-20] MEDS: OSCAL CAL 500 500 MG PO (08:49)
[2023-05-20] MEDS: SOLU-CORTEF 50 MG IV (08:51)
[2023-05-20] MEDS: PROGRAF 2 MG PO (08:51)
[2023-05-20] MEDS: STERILE WATER FOR INJECTION 20 ML IV (08:52)
[2023-05-20] MEDS: ROCEPHIN 2000 MG IV (08:52)
--- NOTE | 2023-05-20 09:02 | W.PN.INTV ---
Today's Communication / Plan
Recommendations
Continue Abx, add zithromax
Add DuoNebs + Budesonide
Encourage incentive spirometer use and up OOB as tolerated
Continue midodrine but wean as tolerated while maintaining MAP >65
Follow-up infectious workup
She will need repeat imaging with CXR in about 6 weeks
I will arrange for outpatient follow-up again in our office with Dr. Perez
Patient stable for downgrade out of ICU to telemetry. Pulmonary service will continue to follow along.
Assessment
-
Assessment: 67-year-old female with a past medical history of sarcoidosis, moderate COPD with air trapping, asthma, depression, renal transplant on chronic immunosuppression and hypertension who presents with shortness of breath and cough. She
says her symptoms started on Tuesday and then progressed. Patient says she has been having cough, headache and shortness of breath. She thinks her son may have gotten her sick as he had similar symptoms few weeks ago. CXR shows bilateral
pneumonia. She was started on cefepime/vancomycin, and found to be hypotensive despite getting 2 L of NS 0.9%. Levophed was started and patient now being transferred to the ICU for further care. Paver Operator services consulted for additional
recommendations/management.
Of note, she was recently hospitalized from 04/24/202304/26/2023 after experiencing severe respiratory distress with acute hypoxemic respiratory failure after being exposed to burn/vaporized potpourri. She was on antibiotics at the time and
steroids however her white blood cell count was normal at that time. Her respiratory culture on 04/26/2023 grew Serratia marcescens.
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
Impression:
#Septic shock due to CAP - shock state now resolved
#History of COPD/asthma with acute exacerbation due to pneumonia
#Anemia
#Acute kidney injury on CKD due to septic shock with ATN
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
#Former tobacco use disorder
#Obesity and at risk for JOHN
#DM type II (uncontrolled with A1C: 7.9) c/b hyperglycemia - likely steroid induced
Plan:
- s/p fluid resuscitation with crystalloids
- Maintain MAP >65 with midodrine used with holding paremeters; wean off midodrine as tolerated
- Currently on Solu-Cortef - change to solumedrol and wean as tolerated
- Goal BG 140-180; consult diabetic PICTURE PAINTER and use basal-bolus dosing to get BG controlled
- continue ABx with rocepin and will add azithromycin given Hx of COPD - would give 7 days of beta-lactam and 5 days zithromax
- Start scheduled DuoNebs and budesonide as takes Breztri at home
- Transfuse blood products as needed to keep Hb>7g/dL and plt>50k
- Replete K>4, Mg>2
- Stress ulcer prophylaxis
- DVT ppx
Dispo: Patient stable for downgrade out of ICU to telemetry. Pulmonary service will continue to follow along.
Data:
CXR 05-19-2023: Bilateral pneumonia, new from prior (CXR from 04/24/2023)
Renal Transplant 05-20-2023: Normal sonographic appearance of the right lower quadrant renal transplant.
Outpatient [facility] Data:
PFT:
������ PFT 04/02/08-FEV1 1.65 L-56%, FVC 2.81 L-75%, no significant BD response
�������Spirometry 07/04/20-FEV1 1.14 L-44%, FVC 1.96 L-58%, no significant BD response except at the small airway level. Moderate obstruction.
�������PFT 01/19/22-Patient was a late cancellation
�������PFT 08/16/22-FEV1 1.47-58%, FVC 2.59-70%, no significant BD response, TLC 100%, RV 100%, DLCO 53%. Mild obstruction and moderate reduction in diffusing capacity.
6 MWT:
������ 6 minute walk test 07/04/20-Ambulated 600 feet with desaturation mi 91% and maximum heart rate 66. No supplemental oxygen required.
�������6 minute walk test 01/19/22-Patient was a late cancellation
�������6 minute walk test 08/16/22-Ambulated 953, desaturation mi 92% and maximum heart rate of 82. Maximum dyspnea scale score 0. No supplemental oxygen required.
FENO:
������ FeNO 07/04/20- 14 ppb
�������FeNO 01/19/22-Patient was a late cancellation
�������FeNO 08/16/22- 6 ppb.
RADIOGRAPHIC STUDIES:
������ CT chest 10/01/13-Interval improvement in findings of sarcoidosis, interval improvement in soft tissue component of mediastinal and hilar lymphadenopathy, interval improvement in interstitial groundglass opacifications
�������Chest x-ray 06/13/20-lungs clear, calcified hilar lymph nodes, unchanged compared with 12/14/19.
CARDIAC STUDIES:
������ Echocardiogram 03/23/16-EF 55-60%, mild mitral regurgitation.
�������Echocardiogram 06/13/20-EF 65-70%, aortic sclerosis without stenosis, no significant valvular disease.
�������Stress test 07/02/20-EF 70%, moderate risk study, no change compared to 11/28/14.
�������Echocardiogram 03/06/21-EF 60-65%, no significant valvular disease.
LABS:
������ Eosinophils12/17/19-100
�������IgE 09/14/11-14
�������ILD. Serology 09/14/11-negative
�������Allergy panel and hypersensitivity panel 09/13/17-negative
�������ABG 06/12/19--45/63/7.35
�������WESLEY 09/26/12-126
�������WESLEY 09/14/11-218
�������WESLEY 01/08/10-61
�������WESLEY 04/29/07-181
�������Bronchoscopy 09/2011-negative AFB, fungus, TB, and cytology,
�������ABG 06/12/19-45/63/7.35
�������Hemoglobin 04/08/22-14.1.
Subjective Dataa
Subjective Data
Date of Service:
Date of Service: May 20, 2023
Chief Complaint: Paver Operator Follow Up
Subjective:
Seen this AM. Levo off since 10:30 AM. She is on 6L/min with sats 95%. HR 63, BP 118/62. She has no complaints. She feels much better today, more energy and less short of breath. She denies chest pain, headache, fevers or chills.
Review of Systems
General: Other (12 point ROS performed and is negative unless mentioned above.)
Objective Data
Data Reviewed
Vital Signs / I&O / Oxygen:
Vital Signs
Temp Pulse Resp BP Pulse Ox
97.5 F 57 16 112/63 93
05/20/23 08:00 05/20/23 10:00 05/20/23 10:00 05/20/23 10:00 05/20/23 10:00
Intake and Output
05/19/23 05/20/23 05/21/23
06:59 06:59 06:59
Intake Total 1732.5 / 1820.0 668.3 / 668.3
Output Total 700 / 700
Balance 1032.5 / 1120.0 668.3 / 668.3
SaO2 93
Nasal Cannula flow liters per 6
minute
Physical Exam
General: Comfortable and Chills (negative)
HEENT: Normocephalic and Anicteric
Cardiovascular: S1-S2 and Peripheral Edema (negative)
Respiratory: Wheeze (bilaterally) and Rhonchi (bilaterally)
GI: Soft, Non Distended and Non Tender
Neurology: AO x 3 and Tremors (negative)
Skin: Warm and Dry
Labs/Micro/Reports
Lab Data
05/20/23 04:57
05/20/23 04:57
Laboratory Results
05/19/23 05/19/23
20:43 21:12
PT Cancelled 15.8 H
INR Cancelled 1.24
APTT Cancelled 43.8 H
Microbiology
05/19/23 15:27 Sputum Gram Stain - Preliminary
05/19/23 12:06 Nasal Swab Influenza Types A & B (BALJEET) - Final
Negative for Influenza A & B, NAAT
Negative results must be combined with clinical observations
and patient history.
Nucleic Acid Amplification test (NAAT)performed on the
[employer] platform.
[2023-05-20] MEDS: NOVOLOG FLEXPEN-LOW RESISTANCE 2 UNITS SC ×2 (10:04→13:33)
--- NOTE | 2023-05-20 11:01 | W.PN.NEPH.PH ---
Today's Communication / Plan
-
follow labs
cont supporitve care
Assessment/Plan
-
Assessment:
PNA
SIMBA on CKD (bl Cr ~2)
Living unrelated kidney transplant at [facility] in 2019
HTN
Hx sarcoidosis
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
COPD
Fibromyalgia
DLD
Chronic Pain
Anxiety/Depression
Plan:
SIMBA on CKD
- most likely pre-renal/ ATN from sepsis
bland UA and non acute renal US, non oliguric
- Cr baseline around 2, risen to 3-�suspect cr reached peak
- please continue all IS (prednisone 5 and tacrolimus), pennding level
wean pressors as able and IVF, midodrine added
hyponatremia improving likely hypovolemic
labs in am
-
-
Date of Service: May 20, 2023
CC / HPI / ROS
-
Chief Complaint:
SIMBA with CKD , h/o KTP
History of Present Illness:
cr increasing to 3, non oliguric with out martínez
no fever
weaning levo down to 1mcg
hb at 11.7
sodium better at 133
bicarb at 21
Review of Systems:
no cp or sob at rest
on NC 8llit
no dysuria
Labs
-
Labs:
WBC 9.8 10^3/uL (4.8-10.8) 05/20/23 04:57
RBC 3.82 10^6/uL (4.20-5.40) L 05/20/23 04:57
Hgb 11.7 g/dL (12.0-16.0) L 05/20/23 04:57
Hct 34.7 % (37.0-47.0) L 05/20/23 04:57
Plt Count 155 10^3/uL (130-400) D 05/20/23 04:57
Sodium 133 mmol/L (135-145) L 05/20/23 04:57
Potassium 4.6 mmol/L (3.5-5.1) 05/20/23 04:57
Chloride 102 mmol/L (98-107) 05/20/23 04:57
Carbon Dioxide 21 mmol/L (22-30) L 05/20/23 04:57
BUN 50 mg/dl (7-17) H 05/20/23 04:57
Creatinine 3.0 mg/dL (0.6-1.0) H 05/20/23 04:57
eGFR 16.63 05/20/23 04:57
Glucose 276 mg/dl (70-99) H 05/20/23 04:57
Calcium 8.3 mg/dl (8.4-10.2) L 05/20/23 04:57
Albumin 2.5 g/dl (3.5-5.0) L 05/20/23 04:57
Physical Exam
-
Vital Signs:
Vital Signs
Temp Pulse Resp BP Pulse Ox
97.5 F 57 16 112/63 93
05/20/23 08:00 05/20/23 10:00 05/20/23 10:00 05/20/23 10:00 05/20/23 10:00
Cardiovascular:: Regular rate and rhythm
Respiratory:: Bilateral: Rales
Lung Excursion:: Normal
Abdomen:: Nontender and Soft
Extremity Edema:: None: Bilateral:
Martínez Catheter: No
[2023-05-20 12:00] LABS: Glycohemoglobin (HgbA1c) 7.9 % (4.0-5.6)
[2023-05-20] MEDS: SOLU-MEDROL PF 40 MG IV ×2 (12:21→20:54)
[2023-05-20] MEDS: ZITHROMAX INFUSION 250 IV (12:24)
[2023-05-20 12:33] LABS: Glucose - Point of Care 223 mg/dl (70-99)
[2023-05-20] MEDS: DUONEB 3 ML INH ×2 (13:06→19:46)
--- NOTE | 2023-05-20 13:23 | PTOTSP ---
pt currently demonstrates ability to complete simple ADLs, functional transfers, ambulation with supervision assistance. pt requires 6LO2 at this time. no acute OT needs identified, no deficits with self care. will sign off.
--- NOTE | 2023-05-20 13:45 | PN.DE.MGMTRT ---
Insulin Management
- -
05/20/2023: Diabetes Management Consult
67 year old female admitted with Acute Hypoxic Resp Failure - suspect due to B/L PNA, underlying COPD and Sarcoidosis.
PMH includes: HTN, HLD, ESRD s/p Living donor renal transplant, Sarcoidosis, Migraines, COPD, Asthma, Depression, Anxiety, Osteoporosis, Fibrocystic breasts, Squamous cell carcinoma, Chronic pain, Peripheral Neuropathy, Fibromyalgia.
We are consulted for Hyperglycemia due to stress dose steroids (pred 40mg IV Q8hrs) for likelihood of adrenal insufficiency in the setting on New Dx of T2DM. A1C 7.9%
Noted for SIMBA on CKD, baseline Cr 2--> up to 3 today, eGFR 16.3. Not a candidate for oral regimen.
Glucose has tended to 276 fasting and 240 before meals.
Will start basal/bolus regimen:- Give NovoLog 6 units now and before each meal. Lantus 15 units daily @HS
Change to low corrective with meals, and change diet to 1800 justin diet
Pt states she has used insulin in the past and is familiar and comfortable adm her own insulin at home.
Reports she had a meter-[employer] Verio and is comfortable using the device to monitor her blood sugars at home, requesting a new meter, will provide her with a meter before d/c.
- Claude at bedside, all questions answered to satisfaction.
Diabetes History
- -
Type of Diabetes: 2 requiring insulin
Pre-Admission Diabetes Regimen
05/20/23
04:57
Creatinine 3.0 H
Lab Results
Hemoglobin A1c 7.9 % (4.0-5.6) H 05/19/23 12:06
Insulin Pump Settings
IP Diabetes Regimen
05/20/23 05/20/23 05/20/23
04:57 08:09 12:13
Glucose 276 H
POC Glucose 240 H 223 H
Meal type: Breakfast
Meal type: Dinner
Amount consumed: 30%
Amount consumed: 90%
Patient Education
--- NOTE | 2023-05-20 15:07 | CM ---
Patient seen at bedside. Per patient she lives with her in a one story home. Patient has 8 steps to enter in front and 3 in the back. Patient has no DME or O2 at home. Patient PCP is Brenda WHITAKER and she uses the [facility].
Patient has had [facility] in the past and would like to have them again if needed. CM will continue to follow for discharge planning needs.
Plan; home with no needs vs home with [facility] referral pending assessments
[2023-05-20] MEDS: NOVOLOG FLEXPEN 6 UNITS SC ×2 (15:54→17:17)
[2023-05-20] MEDS: HEPARIN 5000 UNITS SC ×2 (15:54→23:25)
[2023-05-20 16:04] LABS: Glucose - Point of Care 259 mg/dl (70-99)
[2023-05-20 17:10] LABS: Glucose - Point of Care 250 mg/dl (70-99)
[2023-05-20] MEDS: NOVOLOG FLEXPEN-LOW RESISTANCE 3 UNITS SC (17:18)
--- NOTE | 2023-05-20 17:55 | PTCARENOTE ---
Patient received in AM with assessment as noted. Continues alert, oriented and pleasant. OOB to chair and tothe bathroom on multiple occasions and transfers with minimal assist. NSR/Sinus anjali on monitor. Levophed weaned to off by 1030 and
continues off. Midodrine 10 mg PO TID started and B/P's continue stable. Afebrile. Lungs mostly CTA with occasional exp wheezes. Sao2 94% on 6lnc. Appetite good. No bowel movement today. Voiding ad beatriz. Her was into visit and updated to
patient condition. Patient currently in bed with telephone and call fontaine in reach.
[2023-05-20] MEDS: PROGRAF 1 MG PO (18:14)
--- NOTE | 2023-05-20 19:30 | PTCARENOTE ---
Received pt. at 1900. Pt. currently in bed. Alert and oriented. No complaints of pain or discomfort at this time. Heart rhythm sinus. BP normotensive. Currently on 6L nasal cannula. Lungs sound diminished. Diabetic diet, no issues. OOB to toilet to
void. Skin as documented. Discussed plan of care. Vital signs stable at this time.
[2023-05-20] MEDS: PULMICORT 0.5 MG INH (19:46)
[2023-05-20] MEDS: ROXICODONE 10 MG PO (20:53)
[2023-05-20] MEDS: ABILIFY 10 MG PO (20:53)
[2023-05-20] MEDS: SINGULAIR 10 MG PO (20:53)
[2023-05-20] MEDS: TYLENOL 650 MG PO ×2 (20:53→23:25)
[2023-05-20] MEDS: NEURONTIN 300 MG PO (20:53)
[2023-05-20] MEDS: LEXAPRO 20 MG PO (20:54)
[2023-05-20] MEDS: LANTUS 0.149999999999999994 UNITS SC (20:55)
[2023-05-20 21:03] LABS: Glucose - Point of Care 163 mg/dl (70-99)
--- NOTE | 2023-05-20 23:45 | PTCARENOTE ---
Report given to receiving nurse. Patient transferred to .
[2023-05-21] VITALS (7 sets, daily range): BP systolic 131–165; BP diastolic 62–77; BMI 32.1
[2023-05-21] MEDS: TYLENOL 650 MG PO ×2 (04:35→21:12)
[2023-05-21] MEDS: SOLU-MEDROL PF 40 MG IV (04:37)
[2023-05-21] MEDS: PULMICORT 0.5 MG INH ×2 (07:36→19:39)
[2023-05-21] MEDS: DUONEB 3 ML INH ×3 (07:36→19:39)
[2023-05-21 08:23] LABS: % Basophils 0.4 % (0-2); % Immature Granulocytes 2.3 % (0-0.5); % Lymphocytes 2.3 % (20.5-51.1); % Monocytes 2.4 % (1.7-9.3); % Neutrophils 92.6 % (42.2-75.2); Absolute Immature Granulocytes 0.2 10^3/uL (0-0.05); Absolute Lymphocytes 0.2 10^3/uL (1.2-3.4); Absolute Monocytes 0.2 10^3/uL (0.1-0.6); Hemoglobin 12.5 g/dL (12.0-16.0); Mean Corp Hgb Conc. 35.7 g/dL (33.0-37.0); Mean Corpuscular Hgb 30.8 pg (27.0-31.0); Mean Corpuscular Volume 86.2 fL (81.0-99.0); Mean Platelet Volume 10.4 fL (7.4-10.4); Nucleated Red Blood Cells % 0 %; Platelet Count 202 10^3/uL (130-400); Red Blood Cell Count 4.06 10^6/uL (4.20-5.40); White Blood Cell Count 9.7 10^3/uL (4.8-10.8)
[2023-05-21 08:38] LABS: Glucose - Point of Care 213 mg/dl (70-99)
[2023-05-21 08:39] LABS: ALT (SGPT) 17 U/L (0-35); AST (SGOT) 20 U/L (14-36); Albumin 2.8 g/dl (3.5-5.0); Alkaline Phosphatase 76 U/L (38-126); Blood Urea Nitrogen 53 mg/dl (7-17); Calcium 8.6 mg/dl (8.4-10.2); Carbon Dioxide 22 mmol/L (22-30); Chloride 104 mmol/L (98-107); Estimated Creatinine Clearance 24 ml/min; Glucose 204 mg/dl (70-99); Potassium 4.1 mmol/L (3.5-5.1); Sodium 138 mmol/L (135-145); Total Bilirubin 0.4 mg/dl (0.2-1.3); Total Protein 5.2 g/dl (6.3-8.2); eGFR 19.74
[2023-05-21] MEDS: HEPARIN 5000 UNITS SC ×3 (10:05→23:14)
[2023-05-21] MEDS: NOVOLOG FLEXPEN 6 UNITS SC ×3 (10:05→17:30)
[2023-05-21] MEDS: NOVOLOG FLEXPEN-LOW RESISTANCE 2 UNITS SC ×2 (10:05→17:30)
[2023-05-21] MEDS: ZITHROMAX 250 MG PO (10:09)
[2023-05-21] MEDS: TYLENOL PO ×4 (10:09→17:29)
[2023-05-21] MEDS: ROCEPHIN 2000 MG IV (10:10)
[2023-05-21] MEDS: PROGRAF 2 MG PO (10:10)
[2023-05-21] MEDS: STERILE WATER FOR INJECTION 20 ML IV (10:10)
[2023-05-21] MEDS: ProAmatine PO ×3 (10:11→12:35)
[2023-05-21] MEDS: OSCAL CAL 500 500 MG PO (10:11)
--- NOTE | 2023-05-21 11:35 | W.PN.HOSP.TC ---
Today's Communication/Plan
-
Wean oxygen as able
Change steroids to prednisone
Continue antibiotics
Assessment / Plan
Assessment / Plan
Gen-AAOx3, NAD, obese
HEENT-NC, AT, anicteric, clear oral mm
Neck-supple
CV-reg, no M, +S1/S2
Lungs-mild bilateral expiratory wheezing
Abd-soft, NT, ND
Ext-no edema
Musculoskeletal-no cyanosis, clubbing
Skin-warm and dry
Neuro-grossly non-focal
Psych-calm, cooperative
Acute Hypoxic Resp Failure - suspect due to bilateral pneumonia, underlying COPD with acute exacerbation, sarcoidosis. COVID-19 negative, influenza negative. Currently on 4 L nasal cannula oxygen, wean down as able.
Septic shock due to CAP -continue ceftriaxone given sensitivity to recent sputum culture to Serratia. Blood cultures pending. CXR notes bilateral infiltrates. WBCs normalized. Afebrile today. Currently on 2 mcg of Levophed, wean to off, start
midodrine.
No longer needs stress dose steroids. Sepsis resolved. Hemodynamically improved.
SIMBA on CKD 3b - SIMBA likely due to septic shock. Creatinine improving, 2.6 today. Nephrology following. Hold Lasix.
Acute COPD exacerbation -improving. Change to prednisone 40 mg daily. Continue inhalers.
Bradycardia -asymptomatic. Hold carvedilol. TSH 2.18.
Hx renal transplant - continue meds. On low-dose prednisone 5 mg daily.
Hyponatremia - suspect hypovolemic in nature. IVF. Sodium improving, 133.
Hyperglycemia -patient denies history of diabetes. Check HgbA1c.
Left sided weakness - NIH zero in ED. CT head negative. Doubt acute stroke. Appreciate neurology input.
Hx Sarcoidosis
Essential HTN - hold meds for hypotension/shock.
Chronic pain syndrome/chronic opiate dependence
Obesity due to excess calories
Full code
Anticipated Discharge: 24 - 48 hours
Subjective/Interval History
-
Date of Service: May 21, 2023
Patient seen and examined. Feeling much better. No complaints.
Objective Data
-
Labs:
Laboratory Results
05/21/23
07:44
WBC 9.7
Hgb 12.5
Hct 35.0 L
Plt Count 202 D
Sodium 138
Potassium 4.1
Chloride 104
Carbon Dioxide 22
BUN 53 H
Creatinine 2.6 H
Glucose 204 H
Calcium 8.6
Total Bilirubin 0.4
AST 20
ALT 17
Alkaline Phosphatase 76
Vital Signs:
Vital Signs
Temp Pulse Resp BP Pulse Ox
97.7 F 66 20 131/62 95
05/21/23 07:00 05/21/23 07:41 05/21/23 07:41 05/21/23 07:00 05/21/23 07:41
I&O
05/20/23 05/21/23 05/22/23
06:59 06:59 06:59
Intake Total 1732.5 / 1820.0 948.3 / 948.3 480 / 480
Output Total 700 / 700 600 / 600
Balance 1032.5 / 1120.0 348.3 / 348.3 480 / 480
Review of Systems
-
History Source: Patient
All other systems: Reviewed and negative
[2023-05-21 12:10] LABS: Glucose - Point of Care 189 mg/dl (70-99)
[2023-05-21] MEDS: NOVOLOG FLEXPEN-LOW RESISTANCE 1 UNITS SC (12:33)
[2023-05-21] MEDS: DELTASONE 40 MG PO (12:45)
--- NOTE | 2023-05-21 13:34 | W.PN.PUL3 ---
Today's Communication / Plan
-
ABx
Steroids
Up OOB as tolerated
Encourage IS
Assessment
-
Assessment:� 67-year-old female with a past medical history of sarcoidosis, moderate COPD with air trapping, asthma, depression, renal transplant on chronic immunosuppression and hypertension who presents with shortness of breath and cough.� She
says her symptoms started on Tuesday and then progressed.� Patient says she has been having cough, headache and shortness of breath.� She thinks her son may have gotten her sick as he had similar symptoms few weeks ago.� CXR shows bilateral
pneumonia.� She was started on cefepime/vancomycin, and found to be hypotensive despite getting 2 L of NS 0.9%.� Levophed was started and patient now being transferred to the ICU for further care.� [facility] services consulted for additional
recommendations/management.�
Of note, she was recently hospitalized from 04/24/202304/26/2023 after experiencing severe respiratory distress with acute hypoxemic respiratory failure after being exposed to burn/vaporized potpourri.� She was on antibiotics at the time and
steroids however her white blood cell count was normal at that time.� Her respiratory culture on 04/26/2023 grew Serratia marcescens.
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
Impression:
#Septic shock due to CAP - shock state now resolved - Resp Cx growing H flu
#History of COPD/asthma with acute exacerbation due to pneumonia
#Anemia
#Acute kidney injury on CKD due to septic shock with ATN - shock state resolved and SIMBA improving
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
#Former tobacco use disorder
#Obesity and at risk for JOHN
#DM type II (uncontrolled with A1C: 7.9) c/b hyperglycemia - likely steroid induced
Plan:
- s/p fluid resuscitation with crystalloids
- Maintain MAP >65
- Previosuly on Solu-Cortef -�on 05/20 I changed to solumedrol - ok to start prednisone today at 40mg daily, and reduce by 10mg every 3rd day until off
- Goal BG 140-180; diabetic MATERIALS CLERK consulted on 05/20; use basal-bolus dosing to get BG controlled
- continue ABx with rocepin and�azithromycin given Hx of COPD - would give 7 days of beta-lactam and 5 days zithromax
-�Continue scheduled DuoNebs and budesonide�as takes Breztri at home
- Transfuse blood products as needed to keep Hb>7g/dL and plt>50k
- Replete K>4, Mg>2
- Stress ulcer prophylaxis
- DVT ppx
Pulmonary service will continue to follow along. (Patient was seen and examined on 05/21/2023).
I will arrange for outpt follow up with our office in [facility].
Data:
CXR 05-19-2023:��Bilateral pneumonia, new from prior (CXR from 04/24/2023)
Renal Transplant US 05-20-2023:��Normal sonographic appearance of the right lower quadrant renal transplant.
Outpatient [facility] Data:
PFT:
������ PFT 04/02/08-FEV1 1.65 L-56%, FVC 2.81 L-75%, no significant BD response
�������Spirometry 07/04/20-FEV1 1.14 L-44%, FVC 1.96 L-58%, no significant BD response except at the small airway level. Moderate obstruction.
�������PFT 01/19/22-Patient was a late cancellation
�������PFT 08/16/22-FEV1 1.47-58%, FVC 2.59-70%, no significant BD response, TLC 100%, RV 100%, DLCO 53%. Mild obstruction and moderate reduction in diffusing capacity.
6 MWT:
������ 6 minute walk test 07/04/20-Ambulated 600 feet with desaturation mi 91% and maximum heart rate 66. No supplemental oxygen required.
�������6 minute walk test 01/19/22-Patient was a late cancellation
�������6 minute walk test 08/16/22-Ambulated 953, desaturation mi 92% and maximum heart rate of 82. Maximum dyspnea scale score 0. No supplemental oxygen required.
FENO:
������ FeNO 07/04/20- 14 ppb
�������FeNO 01/19/22-Patient was a late cancellation
�������FeNO 08/16/22- 6 ppb.
RADIOGRAPHIC STUDIES:
������ CT chest 10/01/13-Interval improvement in findings of sarcoidosis, interval improvement in soft tissue component of mediastinal and hilar lymphadenopathy, interval improvement in interstitial groundglass opacifications
�������Chest x-ray 06/13/20-lungs clear, calcified hilar lymph nodes, unchanged compared with 12/14/19.
CARDIAC STUDIES:
������ Echocardiogram 03/23/16-EF 55-60%, mild mitral regurgitation.
�������Echocardiogram 06/13/20-EF 65-70%, aortic sclerosis without stenosis, no significant valvular disease.
�������Stress test 07/02/20-EF 70%, moderate risk study, no change compared to 11/28/14.
�������Echocardiogram 03/06/21-EF 60-65%, no significant valvular disease.
LABS:
������ Eosinophils12/17/19-100
�������IgE 09/14/11-14
�������ILD. Serology 09/14/11-negative
�������Allergy panel and hypersensitivity panel 09/13/17-negative
�������ABG 06/12/19--4563/7.35
�������WESLEY 09/26/12-126
�������WESLEY 09/14/11-218
�������WESLEY 01/08/10-61
�������WESLEY 04/29/07-181
�������Bronchoscopy 09/2011-negative AFB, fungus, TB, and cytology,
�������ABG 06/12/19-4563/7.35
�������Hemoglobin 04/08/22-14.1.
Subjective Data
-
Date of Service:
Date of Service: May 21, 2023
Chief Complaint: Pulmonary Follow Up
Subjective:
Seen this afternoon. She is doing well. Weaned down from 6L/min this AM down to room air this afternoon. No acute overnight evemts reported.
Review of Systems
General: Other (12 point ROS performed and is neg unless mentioned above)
Objective Data
Data Reviewed
Vital Signs / I&O / Oxygen:
Vital Signs
Temp Pulse Resp BP Pulse Ox
98.3 F 67 20 143/75 96
05/21/23 11:00 05/21/23 13:30 05/21/23 13:30 05/21/23 11:00 05/21/23 13:30
Intake and Output
05/20/23 05/21/23 05/22/23
06:59 06:59 06:59
Intake Total 1732.5 / 1820.0 948.3 / 948.3 480 / 480
Output Total 700 / 700 600 / 600
Balance 1032.5 / 1120.0 348.3 / 348.3 480 / 480
SaO2 96
Nasal Cannula flow liters per 4
minute
Physical Exam
General: Comfortable
HEENT: Normocephalic and Anicteric
Cardiovascular: S1-S2 and Peripheral Edema (negative)
Respiratory: Wheeze, Crackles (bibasilar) and Rhonchi (bibasilar)
GI: Soft, Non Distended and Non Tender
Neurology: AO x 3 and Tremors (negative)
Skin: Warm and Dry
Labs/Micro/Reports
Lab Data
05/21/23 07:44
05/21/23 07:44
Microbiology
05/19/23 12:44 Blood/Venous Blood Culture - Preliminary
No Growth in 48 hours- Final report to follow
05/19/23 15:27 Sputum Respiratory Culture - Final
Haemophilus influenzae
05/19/23 15:27 Sputum Gram Stain - Final
05/19/23 12:06 Blood/Venous Blood Culture - Preliminary
No Growth in 48 hours- Final report to follow
05/19/23 12:06 Nasal Swab Influenza Types A & B (BALJEET) - Final
Negative for Influenza A & B, NAAT
Negative results must be combined with clinical observations
and patient history.
Nucleic Acid Amplification test (NAAT)performed on the
[employer] platform.
[2023-05-21 15:45] LABS: Glucose - Point of Care 240 mg/dl (70-99)
--- NOTE | 2023-05-21 16:29 | W.PN.NEPH.PH ---
Today's Communication / Plan
-
follow labs
Assessment/Plan
-
Assessment:
PNA
SIMBA on CKD (bl Cr ~2)
Living unrelated kidney transplant at [place] in 2019
HTN
Hx sarcoidosis
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
COPD
Fibromyalgia
DLD
Chronic Pain
Anxiety/Depression
Plan:
SIMBA on CKD
- most likely pre-renal from sepsis
cr improving to 2.6
bland UA and non acute renal US, non oliguric
continue all IS (prednisone 5 and tacrolimus), pennding level
hyponatremia improving likely hypovolemic
Bp stable, hold midodrine
labs in am
d/c plan
-
-
Date of Service: May 21, 2023
CC / HPI / ROS
-
Chief Complaint:
SIMBA with CKD , h/o KTP
History of Present Illness:
cr better 2.6, non oliguric with out martínez
no fever
BP stable, did not require midodrine
sodium normal
bicarb at 22 better
Review of Systems:
no cp or sob at rest
off O2
no dysuria
Labs
-
Labs:
WBC 9.7 10^3/uL (4.8-10.8) 05/21/23 07:44
RBC 4.06 10^6/uL (4.20-5.40) L 05/21/23 07:44
Hgb 12.5 g/dL (12.0-16.0) 05/21/23 07:44
Hct 35.0 % (37.0-47.0) L 05/21/23 07:44
Plt Count 202 10^3/uL (130-400) D 05/21/23 07:44
Sodium 138 mmol/L (135-145) 05/21/23 07:44
Potassium 4.1 mmol/L (3.5-5.1) 05/21/23 07:44
Chloride 104 mmol/L (98-107) 05/21/23 07:44
Carbon Dioxide 22 mmol/L (22-30) 05/21/23 07:44
BUN 53 mg/dl (7-17) H 05/21/23 07:44
Creatinine 2.6 mg/dL (0.6-1.0) H 05/21/23 07:44
eGFR 19.74 05/21/23 07:44
Glucose 204 mg/dl (70-99) H 05/21/23 07:44
Calcium 8.6 mg/dl (8.4-10.2) 05/21/23 07:44
Albumin 2.8 g/dl (3.5-5.0) L 05/21/23 07:44
Physical Exam
-
Vital Signs:
Vital Signs
Temp Pulse Resp BP Pulse Ox
98.3 F 67 20 143/75 96
05/21/23 11:00 05/21/23 13:30 05/21/23 13:30 05/21/23 11:00 05/21/23 13:30
Cardiovascular:: Regular rate and rhythm
Respiratory:: Bilateral: Wheeze (mild)
Lung Excursion:: Normal
Abdomen:: Nontender and Soft
Extremity Edema:: None: Bilateral:
Martínez Catheter: No
[2023-05-21] MEDS: PROGRAF 1 MG PO (21:12)
[2023-05-21] MEDS: ABILIFY 10 MG PO (21:13)
[2023-05-21] MEDS: NEURONTIN 300 MG PO (21:13)
[2023-05-21] MEDS: ROXICODONE 10 MG PO (21:14)
[2023-05-21] MEDS: LEXAPRO 20 MG PO (21:14)
[2023-05-21] MEDS: SINGULAIR 10 MG PO (21:14)
[2023-05-21] MEDS: LANTUS 0.149999999999999994 UNITS SC (21:20)
[2023-05-21 21:23] LABS: Glucose - Point of Care 203 mg/dl (70-99)
[2023-05-22] VITALS (7 sets, daily range): BP systolic 120–174; BP diastolic 60–84; PULSE 59; O2SAT 94
[2023-05-22] MEDS: TYLENOL PO ×3 (00:09→17:28)
[2023-05-22 06:58] LABS: % Basophils 0.4 % (0-2); % Immature Granulocytes 2.2 % (0-0.5); % Lymphocytes 4.3 % (20.5-51.1); % Monocytes 5.7 % (1.7-9.3); % Neutrophils 87.4 % (42.2-75.2); Absolute Immature Granulocytes 0.2 10^3/uL (0-0.05); Absolute Lymphocytes 0.3 10^3/uL (1.2-3.4); Absolute Monocytes 0.4 10^3/uL (0.1-0.6); Absolute Neutrophils 6.7 10^3/uL (1.4-6.5); Hematocrit 33.9 % (37.0-47.0); Hemoglobin 11.8 g/dL (12.0-16.0); Mean Corp Hgb Conc. 34.8 g/dL (33.0-37.0); Mean Corpuscular Hgb 29.8 pg (27.0-31.0); Mean Corpuscular Volume 85.6 fL (81.0-99.0); Mean Platelet Volume 10.1 fL (7.4-10.4); Nucleated Red Blood Cells % 0 %; Platelet Count 189 10^3/uL (130-400); Red Blood Cell Count 3.96 10^6/uL (4.20-5.40); Red Cell Dist. Width 13.2 % (11.5-14.5); White Blood Cell Count 7.7 10^3/uL (4.8-10.8)
[2023-05-22 07:18] LABS: ALT (SGPT) 17 U/L (0-35); AST (SGOT) 18 U/L (14-36); Albumin 3.1 g/dl (3.5-5.0); Alkaline Phosphatase 70 U/L (38-126); Blood Urea Nitrogen 57 mg/dl (7-17); Calcium 8.4 mg/dl (8.4-10.2); Carbon Dioxide 23 mmol/L (22-30); Chloride 106 mmol/L (98-107); Estimated Creatinine Clearance 23 ml/min; Glucose 174 mg/dl (70-99); Sodium 136 mmol/L (135-145); Total Bilirubin 0.6 mg/dl (0.2-1.3); Total Protein 5.6 g/dl (6.3-8.2); eGFR 18.87
[2023-05-22] MEDS: DUONEB 3 ML INH ×3 (07:54→20:13)
[2023-05-22] MEDS: PULMICORT 0.5 MG INH ×2 (07:54→20:13)
[2023-05-22 09:04] LABS: Glucose - Point of Care 177 mg/dl (70-99)
[2023-05-22] MEDS: NOVOLOG FLEXPEN 6 UNITS SC (09:36)
[2023-05-22] MEDS: PROGRAF 2 MG PO (09:37)
[2023-05-22] MEDS: NOVOLOG FLEXPEN-LOW RESISTANCE 1 UNITS SC ×2 (09:37→13:27)
[2023-05-22] MEDS: ZITHROMAX 250 MG PO (09:37)
[2023-05-22] MEDS: STERILE WATER FOR INJECTION 20 ML IV (09:39)
[2023-05-22] MEDS: ROCEPHIN 2000 MG IV (09:39)
[2023-05-22] MEDS: DELTASONE 40 MG PO (09:40)
[2023-05-22] MEDS: OSCAL CAL 500 500 MG PO (09:40)
[2023-05-22] MEDS: HEPARIN 5000 UNITS SC ×3 (09:41→23:26)
[2023-05-22] MEDS: TYLENOL 650 MG PO ×3 (09:41→20:56)
--- NOTE | 2023-05-22 10:32 | W.PN.HOSP.TC ---
Today's Communication/Plan
-
Adjust insulin dose
Await diabetes education on Tuesday
Ambulatory pulse ox on room air
Assessment / Plan
Assessment / Plan
Gen-AAOx3, NAD, obese
HEENT-NC, AT, anicteric, clear oral mm
Neck-supple
CV-reg, no M, +S1/S2
Lungs-clear bilaterally
Abd-soft, NT, ND
Ext-no edema
Musculoskeletal-no cyanosis, clubbing
Skin-warm and dry
Neuro-grossly non-focal
Psych-calm, cooperative
Acute Hypoxic Resp Failure - suspect due to bilateral pneumonia, underlying COPD with acute exacerbation, sarcoidosis. COVID-19 negative, influenza negative. Oxygenation improved, currently on room air. Check ambulatory pulse ox on room air.
Septic shock due to CAP -sepsis resolved. Currently on IV ceftriaxone. Blood cultures negative. Sputum culture shows haemophilus influenza, sensitivity pending. Previous sputum culture showed Serratia. CXR notes bilateral infiltrates. WBCs
normalized. Afebrile today. Off vasopressors. On as needed midodrine.
No longer needs stress dose steroids. Sepsis resolved. Hemodynamically improved.
SIMBA on CKD 3b - SIMBA likely due to septic shock. Creatinine stable at 2.7 today. Nephrology following. Hold Lasix.
DM2 with hyperglycemia -hemoglobin A1c 7.9%. This is a new diagnosis of diabetes. Hyperglycemia worsened by steroids. Glucose 174 this morning. Will increase NovoLog dose to 8 units AC, continue Lantus 15 units at bedtime. She does not have a
glucometer and is a little shaky with insulin use. Will wait for diabetes education to return on Tuesday and anticipate discharge if stable.
Acute COPD exacerbation -improving. No wheezing on exam today. Change to prednisone 40 mg daily. Continue inhalers.
Bradycardia -asymptomatic. Hold carvedilol. TSH 2.18.
Hx renal transplant - continue meds. On low-dose prednisone 5 mg daily.
Hyponatremia -resolved.
Left sided weakness - NIH zero in ED. CT head negative. Doubt acute stroke. Appreciate neurology input.
Hx Sarcoidosis
Essential HTN -blood pressure now elevated. Can resume carvedilol at half the home dose. May need to resume nifedipine at a lower dose if needed later today.
Chronic pain syndrome/chronic opiate dependence
Obesity due to excess calories
Full code
Dispo -likely discharge Tuesday if stable after evaluated by diabetes education. Will need glucometer to go home.
Anticipated Discharge: Within 24 hours
Subjective/Interval History
-
Date of Service: May 22, 2023
Patient seen and examined. Feeling better. No complaints.
Objective Data
-
Labs:
Laboratory Results
05/22/23
06:10
WBC 7.7
Hgb 11.8 L
Hct 33.9 L
Plt Count 189
Sodium 136
Potassium 4.0
Chloride 106
Carbon Dioxide 23
BUN 57 H
Creatinine 2.7 H
Glucose 174 H
Calcium 8.4
Total Bilirubin 0.6
AST 18
ALT 17
Alkaline Phosphatase 70
Vital Signs:
Vital Signs
Temp Pulse Resp BP Pulse Ox
97.7 F 68 18 170/84 93
05/22/23 07:00 05/22/23 07:59 05/22/23 07:59 05/22/23 07:00 05/22/23 07:59
I&O
05/21/23 05/22/23 05/23/23
06:59 06:59 06:59
Intake Total 948.3 / 948.3 1959
Output Total 600 / 600
Balance 348.3 / 348.3 1959
Review of Systems
-
History Source: Patient
All other systems: Reviewed and negative
[2023-05-22] MEDS: COREG 3.125 MG PO ×2 (10:55→20:56)
[2023-05-22 12:10] LABS: Glucose - Point of Care 160 mg/dl (70-99)
--- NOTE | 2023-05-22 12:14 | W.PN.NEPH.PH ---
Today's Communication / Plan
-
resume procardia
follow labs
Assessment/Plan
-
Assessment:
PNA
SIMBA on CKD (bl Cr ~2)
Living unrelated kidney transplant at [place] in 2019
HTN
Hx sarcoidosis
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
COPD
Fibromyalgia
DLD
Chronic Pain
Anxiety/Depression
Plan:
SIMBA on CKD
- most likely pre-renal from sepsis
cr slightly up at 2.7
bland UA and non acute renal US, non oliguric
continue all IS (prednisone 5 and tacrolimus), pennding level
abx and weaning steroids per primary
Bp now increasing trend, resume procardia
holding lasix still
labs in am
d/c plan
-
-
Date of Service: May 22, 2023
CC / HPI / ROS
-
Chief Complaint:
SIMBA with CKD , h/o KTP
History of Present Illness:
cr up at 2.7,
no fever
BP increasing trend, did not require midodrine
sodium normal
bicarb at 23 better
Review of Systems:
no cp or sob at rest
still cough
no dysuria
Labs
-
Labs:
WBC 7.7 10^3/uL (4.8-10.8) 05/22/23 06:10
RBC 3.96 10^6/uL (4.20-5.40) L 05/22/23 06:10
Hgb 11.8 g/dL (12.0-16.0) L 05/22/23 06:10
Hct 33.9 % (37.0-47.0) L 05/22/23 06:10
Plt Count 189 10^3/uL (130-400) 05/22/23 06:10
Sodium 136 mmol/L (135-145) 05/22/23 06:10
Potassium 4.0 mmol/L (3.5-5.1) 05/22/23 06:10
Chloride 106 mmol/L (98-107) 05/22/23 06:10
Carbon Dioxide 23 mmol/L (22-30) 05/22/23 06:10
BUN 57 mg/dl (7-17) H 05/22/23 06:10
Creatinine 2.7 mg/dL (0.6-1.0) H 05/22/23 06:10
eGFR 18.87 05/22/23 06:10
Glucose 174 mg/dl (70-99) H 05/22/23 06:10
Calcium 8.4 mg/dl (8.4-10.2) 05/22/23 06:10
Albumin 3.1 g/dl (3.5-5.0) L 05/22/23 06:10
Physical Exam
-
Vital Signs:
Vital Signs
Temp Pulse Resp BP Pulse Ox
97.7 F 60 17 174/81 97
05/22/23 11:00 05/22/23 11:00 05/22/23 11:00 05/22/23 11:00 05/22/23 11:00
Cardiovascular:: Regular rate and rhythm
Respiratory:: Bilateral: CTA
Lung Excursion:: Normal
Abdomen:: Nontender and Soft
Extremity Edema:: None: Bilateral:
Botello Catheter: No
--- NOTE | 2023-05-22 12:18 | W.PN.PUL3 ---
Today's Communication / Plan
-
ABx
Steroids
Up OOB as tolerated
Encourage IS
Assessment
-
Assessment:� 67-year-old female with a past medical history of sarcoidosis, moderate COPD with air trapping, asthma, depression, renal transplant on chronic immunosuppression and hypertension who presents with shortness of breath and cough.� She
says her symptoms started on Tuesday and then progressed.� Patient says she has been having cough, headache and shortness of breath.� She thinks her son may have gotten her sick as he had similar symptoms few weeks ago.� CXR shows bilateral
pneumonia.� She was started on cefepime/vancomycin, and found to be hypotensive despite getting 2 L of NS 0.9%.� Levophed was started and patient now being transferred to the ICU for further care.� Asset Coordinator services consulted for additional
recommendations/management.�
Of note, she was recently hospitalized from 04/24/202304/26/2023 after experiencing severe respiratory distress with acute hypoxemic respiratory failure after being exposed to burn/vaporized potpourri.� She was on antibiotics at the time and
steroids however her white blood cell count was normal at that time.� Her respiratory culture on 04/26/2023 grew Serratia marcescens.
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
Impression:
#Septic shock due to CAP - shock state now resolved - Resp Cx growing H flu
#History of COPD/asthma with acute exacerbation due to pneumonia
#Anemia
#Acute kidney injury on CKD due to septic shock with ATN - shock state resolved and SIMBA improving
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
#Former tobacco use disorder
#Obesity and at risk for JOHN
#DM type II (uncontrolled with A1C: 7.9) c/b hyperglycemia - likely steroid induced
Plan:
- s/p fluid resuscitation with crystalloids
- Maintain MAP >65
- Previously on Solu-Cortef -�on 05/20 I changed to solumedrol - ok to start prednisone today at 40mg daily, and reduce by 10mg every 3rd day until off
- Goal BG 140-180; diabetic DRAWING CHECKER consulted on 05/20; use basal-bolus dosing to get BG controlled
- continue ABx with rocepin and�azithromycin given Hx of COPD - would give 7 days of beta-lactam and 5 days zithromax
-�Continue scheduled DuoNebs and budesonide�as takes Breztri at home
- Transfuse blood products as needed to keep Hb>7g/dL and plt>50k
- Replete K>4, Mg>2
- Stress ulcer prophylaxis
- DVT ppx
Pulmonary service will continue to follow along.
(Patient was seen and examined on 05/22/2023)
I will arrange for outpt follow up with our office in [facility].
Data:
CXR 05-19-2023:��Bilateral pneumonia, new from prior (CXR from 04/24/2023)
Renal Transplant US 05-20-2023:��Normal sonographic appearance of the right lower quadrant renal transplant.
Outpatient [facility] Data:
PFT:
������ PFT 04/02/08-FEV1 1.65 L-56%, FVC 2.81 L-75%, no significant BD response
�������Spirometry 07/04/20-FEV1 1.14 L-44%, FVC 1.96 L-58%, no significant BD response except at the small airway level. Moderate obstruction.
�������PFT 01/19/22-Patient was a late cancellation
�������PFT 08/16/22-FEV1 1.47-58%, FVC 2.59-70%, no significant BD response, TLC 100%, RV 100%, DLCO 53%. Mild obstruction and moderate reduction in diffusing capacity.
6 MWT:
������ 6 minute walk test 07/04/20-Ambulated 600 feet with desaturation mi 91% and maximum heart rate 66. No supplemental oxygen required.
�������6 minute walk test 01/19/22-Patient was a late cancellation
�������6 minute walk test 08/16/22-Ambulated 953, desaturation mi 92% and maximum heart rate of 82. Maximum dyspnea scale score 0. No supplemental oxygen required.
FENO:
������ FeNO 07/04/20- 14 ppb
�������FeNO 01/19/22-Patient was a late cancellation
�������FeNO 08/16/22- 6 ppb.
RADIOGRAPHIC STUDIES:
������ CT chest 10/01/13-Interval improvement in findings of sarcoidosis, interval improvement in soft tissue component of mediastinal and hilar lymphadenopathy, interval improvement in interstitial groundglass opacifications
�������Chest x-ray 06/13/20-lungs clear, calcified hilar lymph nodes, unchanged compared with 12/14/19.
CARDIAC STUDIES:
������ Echocardiogram 03/23/16-EF 55-60%, mild mitral regurgitation.
�������Echocardiogram 06/13/20-EF 65-70%, aortic sclerosis without stenosis, no significant valvular disease.
�������Stress test 07/02/20-EF 70%, moderate risk study, no change compared to 11/28/14.
�������Echocardiogram 03/06/21-EF 60-65%, no significant valvular disease.
LABS:
������ Eosinophils12/17/19-100
�������IgE 09/14/11-14
�������ILD. Serology 09/14/11-negative
�������Allergy panel and hypersensitivity panel 09/13/17-negative
�������ABG 06/12/19--4563/7.35
�������WESLEY 09/26/12-126
�������WESLEY 09/14/11-218
�������WESLEY 01/08/10-61
�������WESLEY 04/29/07-181
�������Bronchoscopy 09/2011-negative AFB, fungus, TB, and cytology,
�������ABG 06/12/19-4563/7.35
�������Hemoglobin 04/08/22-14.1.
Subjective Data
-
Date of Service:
Date of Service: May 22, 2023
Chief Complaint: Pulmonary Follow Up
Subjective:
Seen today - sitting in chair in NAD. No issues overnight. Eager to go home. SHe is on room air, saturating 94%.
Review of Systems
General: Other (neg unless mentioned above)
Objective Data
Data Reviewed
Vital Signs / I&O / Oxygen:
Vital Signs
Temp Pulse Resp BP Pulse Ox
97.7 F 60 17 174/81 97
05/22/23 11:00 05/22/23 11:00 05/22/23 11:00 05/22/23 11:00 05/22/23 11:00
Intake and Output
05/21/23 05/22/23 05/23/23
06:59 06:59 06:59
Intake Total 948.3 / 948.3 1959
Output Total 600 / 600
Balance 348.3 / 348.3 1959
SaO2 97
Nasal Cannula flow liters per 4
minute
Physical Exam
General: Comfortable
HEENT: Normocephalic and Anicteric
Cardiovascular: S1-S2 and Peripheral Edema (negative)
Respiratory: Wheeze (negative), Crackles (bibasilar), Rhonchi (bibasilar) and Accessory Resp Muscle Use (neg)
GI: Soft, Non Distended and Non Tender
Neurology: AO x 3 and Tremors (negative)
Skin: Warm and Dry
Labs/Micro/Reports
Lab Data
05/22/23 06:10
05/22/23 06:10
Microbiology
05/19/23 12:06 Blood/Venous Blood Culture - Preliminary
No Growth in 72 hours- Final report to follow
05/19/23 12:44 Blood/Venous Blood Culture - Preliminary
No Growth in 48 hours- Final report to follow
05/19/23 15:27 Sputum Respiratory Culture - Final
Haemophilus influenzae
05/19/23 15:27 Sputum Gram Stain - Final
05/19/23 12:06 Nasal Swab Influenza Types A & B (BALJEET) - Final
Negative for Influenza A & B, NAAT
Negative results must be combined with clinical observations
and patient history.
Nucleic Acid Amplification test (NAAT)performed on the
[employer] platform.
[2023-05-22] MEDS: NOVOLOG FLEXPEN 8 UNITS SC ×2 (13:26→17:28)
[2023-05-22] MEDS: PROCARDIA XL (EXTENDED RELEASE) 60 MG PO (13:27)
[2023-05-22] MEDS: ROXICODONE 5 MG PO (13:30)
--- NOTE | 2023-05-22 14:43 | CM ---
CM following re: discharge planning.
Reviewed pt's chart, met with pt. According to MD pt most likely will be ready for discharge on Tuesday.
PT and OT evaluations are noted - home PT/OT recommended.
Per CM note, pt requested [facility]. A referral to [facility] made.
D/C plan: home with [facility] and family support. Family to transport at discharge.
CM will follow with discharge plan updates as hospitalization progresses
[2023-05-22 16:46] LABS: Glucose - Point of Care 283 mg/dl (70-99)
[2023-05-22] MEDS: NOVOLOG FLEXPEN-LOW RESISTANCE 4 UNITS SC (17:28)
[2023-05-22 17:33] LABS: Glucose - Point of Care 313 mg/dl (70-99)
[2023-05-22 18:00] LABS: Tacrolimus (Prograft - FK506) 16.8 ng/mL
[2023-05-22] MEDS: PROGRAF 1 MG PO (20:56)
[2023-05-22 21:01] LABS: Glucose - Point of Care 203 mg/dl (70-99)
[2023-05-22] MEDS: ABILIFY 10 MG PO (21:03)
[2023-05-22] MEDS: ROXICODONE 10 MG PO (21:03)
[2023-05-22] MEDS: NEURONTIN 300 MG PO (21:03)
[2023-05-22] MEDS: LANTUS 0.149999999999999994 UNITS SC (21:04)
[2023-05-22] MEDS: SINGULAIR 10 MG PO (21:04)
[2023-05-22] MEDS: LEXAPRO 20 MG PO (21:04)
[2023-05-23] MEDS: TYLENOL PO ×2 (00:14→04:31)
[2023-05-23 03:50] VITALS: BP 158/82
[2023-05-23 06:00] VITALS: BMI 30.6
[2023-05-23 06:05] LABS: % Basophils 0.6 % (0-2); % Eosinophils 0.1 % (0-6); % Immature Granulocytes 5.6 % (0-0.5); % Lymphocytes 5.9 % (20.5-51.1); % Monocytes 7.7 % (1.7-9.3); % Neutrophils 80.1 % (42.2-75.2); Absolute Immature Granulocytes 0.4 10^3/uL (0-0.05); Absolute Lymphocytes 0.4 10^3/uL (1.2-3.4); Absolute Monocytes 0.5 10^3/uL (0.1-0.6); Absolute Neutrophils 5.4 10^3/uL (1.4-6.5); Hematocrit 36.1 % (37.0-47.0); Hemoglobin 12.2 g/dL (12.0-16.0); Mean Corp Hgb Conc. 33.8 g/dL (33.0-37.0); Mean Corpuscular Hgb 29.9 pg (27.0-31.0); Mean Corpuscular Volume 88.5 fL (81.0-99.0); Mean Platelet Volume 9.9 fL (7.4-10.4); Nucleated Red Blood Cells % 0 %; Platelet Count 195 10^3/uL (130-400); Red Blood Cell Count 4.08 10^6/uL (4.20-5.40); Red Cell Dist. Width 12.9 % (11.5-14.5); White Blood Cell Count 6.8 10^3/uL (4.8-10.8)
[2023-05-23 06:39] LABS: ALT (SGPT) 16 U/L (0-35); AST (SGOT) 15 U/L (14-36); Alkaline Phosphatase 69 U/L (38-126); Blood Urea Nitrogen 58 mg/dl (7-17); Carbon Dioxide 25 mmol/L (22-30); Chloride 102 mmol/L (98-107); Estimated Creatinine Clearance 25 ml/min; Glucose 106 mg/dl (70-99); Sodium 139 mmol/L (135-145); Total Bilirubin 0.6 mg/dl (0.2-1.3); Total Protein 5.4 g/dl (6.3-8.2); eGFR 20.69
[2023-05-23 07:00] VITALS: BP 170/76
[2023-05-23] MEDS: PULMICORT 0.5 MG INH (07:44)
[2023-05-23] MEDS: DUONEB 3 ML INH (07:44)
--- NOTE | 2023-05-23 07:46 | PN.DE.MGMTRT ---
Addendum entered and electronically signed by AIDAN Pickett 05/23/23 13:06:
Returned to pt's room to provider her with a replacement glucose meter since she wasn't sure she still had one at home. Pt had already left the hospital and on her way home after discharge. Spoke to pt via phone and notified her that a script for a
OneTouch glucose meter will be sent to her pharmacy and she can pick it up later today.
Pt verbalized understanding and was offered office number to call if she has any diabetes related questions after discharge
Original Note:
Insulin Management
- -
05/20/2023: Diabetes Management Consult
67 year old female admitted with Acute Hypoxic Resp Failure - suspect due to B/L PNA, underlying COPD and Sarcoidosis.
PMH includes: HTN, HLD, ESRD s/p Living donor renal transplant, Sarcoidosis, Migraines, COPD, Asthma, Depression, Anxiety, Osteoporosis, Fibrocystic breasts, Squamous cell carcinoma, Chronic pain, Peripheral Neuropathy, Fibromyalgia.
We are consulted for Hyperglycemia due to stress dose steroids (pred 40mg IV Q8hrs) for likelihood of adrenal insufficiency in the setting on New Dx of T2DM. A1C 7.9%
Noted for SIMBA on CKD, baseline Cr 2--> up to 3 today, eGFR 16.3. Not a candidate for oral regimen.
Glucose has tended to 276 fasting and 240 before meals.
Will start basal/bolus regimen:- Give NovoLog 6 units now and before each meal. Lantus 15 units daily @HS
Change to low corrective with meals, and change diet to 1800 justin diet
Pt states she has used insulin in the past and is familiar and comfortable adm her own insulin at home.
Reports she had a meter-OneTouch Verio and is comfortable using the device to monitor her blood sugars at home, requesting a new meter, will provide her with a meter before d/c.
- Claude at bedside, all questions answered to satisfaction.
05/23/2023: Diabetes Management F/U:
Pt doing well, seen sitting up in chair, offers no complaints.
Remains on steroids-Pred 40mg daily. Glucose trended up to 313 at dinner time yesterday, premeal range 177 to 313, FBG 106 this AM.
Will cont Lantus 15 units @ HS. Increase NovoLog to 10 units AC.Will closely monitor and adjust insulin further if necessary.
Discussed SIMBA on CKD with Cr of 3.0-->2.5 and plans to d/c home on insulin, pt states she may need a visiting nurse or home PT, tho she is comfortable adm her own insulin at home. Update given to pt's Nurse.
Diabetes History
- -
Type of Diabetes: 2 requiring insulin
Pre-Admission Diabetes Regimen
05/23/23
05:36
Creatinine 2.5 H
Lab Results
Hemoglobin A1c 7.9 % (4.0-5.6) H 05/19/23 12:06
Insulin Pump Settings
IP Diabetes Regimen
05/22/23 05/22/23 05/22/23
09:02 12:08 16:44
Glucose
POC Glucose 177 H 160 H 283 H
05/22/23 05/22/23 05/23/23
17:26 21:00 05:36
Glucose 106 H
POC Glucose 313 H 203 H
Meal type: Dinner
Meal type: Lunch
Meal type: Breakfast
Amount consumed: 100%
Amount consumed: 50%
Amount consumed: 20%
Patient Education
[2023-05-23 08:01] LABS: Glucose - Point of Care 82 mg/dl (70-99)
[2023-05-23] MEDS: NOVOLOG FLEXPEN SC (08:13)
[2023-05-23] MEDS: NOVOLOG FLEXPEN-LOW RESISTANCE SC (08:15)
[2023-05-23] MEDS: PROCARDIA XL (EXTENDED RELEASE) 60 MG PO (08:16)
[2023-05-23] MEDS: OSCAL CAL 500 500 MG PO (08:16)
[2023-05-23] MEDS: ProAmatine 5 MG PO (08:16)
[2023-05-23] MEDS: ZITHROMAX 250 MG PO (08:16)
[2023-05-23] MEDS: DELTASONE 40 MG PO (08:17)
[2023-05-23] MEDS: PROCARDIA XL (EXTENDED RELEASE) 30 MG PO (08:17)
[2023-05-23] MEDS: TYLENOL 650 MG PO (08:17)
[2023-05-23] MEDS: PROGRAF 2 MG PO (08:18)
[2023-05-23] MEDS: COREG 3.125 MG PO (08:18)
[2023-05-23] MEDS: HEPARIN 5000 UNITS SC (08:18)
[2023-05-23] MEDS: STERILE WATER FOR INJECTION 20 ML IV (08:19)
[2023-05-23] MEDS: ROCEPHIN 2000 MG IV (08:20)
--- NOTE | 2023-05-23 08:34 | W.PN.HOSP.TC ---
Addendum entered and electronically signed by Dereje Ballard MD 05/24/23 13:09:
Yes, pneumonia is related to/associated with/due to Haemophilus influenzae
Original Note:
Today's Communication/Plan
-
Discharge today
Assessment / Plan
Assessment / Plan
Acute Hypoxic Resp Failure - suspect due to bilateral pneumonia, underlying COPD with acute exacerbation, sarcoidosis. COVID-19 negative, influenza negative. Oxygenation improved, currently on room air.
Septic shock due to CAP -sepsis resolved. Currently on IV ceftriaxone. Blood cultures negative. Sputum culture shows haemophilus influenza, sensitivity pending. Previous sputum culture showed Serratia. CXR notes bilateral infiltrates. WBCs
normalized. Afebrile today. Off vasopressors. On as needed midodrine.
No longer needs stress dose steroids. Sepsis resolved. Hemodynamically improved. Medically stable for discharge on cefprozil for 4 more days
SIMBA on CKD 3b - SIMBA likely due to septic shock. Creatinine stable at 2.5 today. Nephrology following. Hold Lasix.
DM2 with hyperglycemia -hemoglobin A1c 7.9%. This is a new diagnosis of diabetes. Hyperglycemia worsened by steroids. Will discharge her on NovoLog dose to 8 units AC, continue Lantus 15 units at bedtime. She does not have a glucometer and is a
little shaky with insulin use. Seen by diabetes nurse educator prior to discharge
Acute COPD exacerbation -improving. No wheezing on exam today. Continue oral prednisone taper upon discharge, continue inhalers.
Bradycardia -asymptomatic. Coreg was reduced from 6.25 mg twice a day to 3.125 mg twice a day. TSH 2.18.
Hx renal transplant - continue meds. On low-dose prednisone 5 mg daily.
Hyponatremia -resolved.
Left sided weakness - NIH zero in ED. CT head negative. Doubt acute stroke. Appreciate neurology input.
Hx Sarcoidosis
Essential HTN -blood pressure now elevated. Can resume carvedilol at half the home dose. May need to resume nifedipine at a lower dose.
Chronic pain syndrome/chronic opiate dependence
Obesity due to excess calories
Full code
Physical Exam
General: Obese, no acute distress
HEENT: Normocephalic, Atraumatic, EOMI, MMM
Respiratory: Clear to Auscultation bilaterally
Cardiac: Normal S1/S2, Regular Rate and Rhythm
GI: Soft, Nontender, Nondistended, Normal Bowel Sounds
Extremities: No Clubbing, Cyanosis, or Edema
Neuro: Nonfocal/Grossly Intact
Anticipated Discharge: Today
Subjective/Interval History
-
Date of Service: May 23, 2023
Patient reports breathing continues to improve. She is eager for discharge today.
Objective Data
-
Labs:
Laboratory Results
05/23/23
05:36
WBC 6.8
Hgb 12.2
Hct 36.1 L
Plt Count 195
Sodium 139
Potassium 4.0
Chloride 102
Carbon Dioxide 25
BUN 58 H
Creatinine 2.5 H
Glucose 106 H
Calcium 9.0
Total Bilirubin 0.6
AST 15
ALT 16
Alkaline Phosphatase 69
Vital Signs:
Vital Signs
Temp Pulse Resp BP Pulse Ox
98.0 F 57 16 170/76 94
05/23/23 07:00 05/23/23 07:47 05/23/23 07:47 05/23/23 07:00 05/23/23 07:47
I&O
05/22/23 05/23/23 05/24/23
06:59 06:59 06:59
Intake Total 1959
Balance 1959
--- NOTE | 2023-05-23 09:08 | W.PN.PUL3 ---
Today's Communication / Plan
-
ABx
Steroids
Up OOB as tolerated
Encourage IS
Patient being prepared for DC home. Pulmonary service will now sign off. Please reconsult if there are any additional questions/concerns.
Assessment
-
Assessment:� 67-year-old female with a past medical history of sarcoidosis, moderate COPD with air trapping, asthma, depression, renal transplant on chronic immunosuppression and hypertension who presents with shortness of breath and cough.� She
says her symptoms started on Tuesday and then progressed.� Patient says she has been having cough, headache and shortness of breath.� She thinks her son may have gotten her sick as he had similar symptoms few weeks ago.� CXR shows bilateral
pneumonia.� She was started on cefepime/vancomycin, and found to be hypotensive despite getting 2 L of NS 0.9%.� Levophed was started and patient now being transferred to the ICU for further care.� Craft Manager services consulted for additional
recommendations/management.�
Of note, she was recently hospitalized from 04/24/202304/26/2023 after experiencing severe respiratory distress with acute hypoxemic respiratory failure after being exposed to burn/vaporized potpourri.� She was on antibiotics at the time and
steroids however her white blood cell count was normal at that time.� Her respiratory culture on 04/26/2023 grew Serratia marcescens.
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
Impression:
#Septic shock due to CAP - shock state now resolved - Resp Cx grew H flu (beta-lactamase negative)
#History of COPD/asthma with acute exacerbation due to pneumonia
#Anemia
#Acute kidney injury on CKD due to septic shock with ATN - shock state resolved and SIMBA improving
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
#Former tobacco use disorder
#Obesity and at risk for JOHN
#DM type II (uncontrolled with A1C: 7.9) c/b hyperglycemia - likely steroid induced - glucose more controlled today
Plan:
- s/p fluid resuscitation with crystalloids
- Maintain MAP >65
- Previously on Solu-Cortef -�on 05/20 I changed to solumedrol - continue prednisone at 40mg daily, and reduce by 10mg every 3rd day until off
- Goal BG 140-180; diabetic PNEUMATIC TUBE OPERATOR consulted on 05/20; use basal-bolus dosing to get BG controlled
- continue ABx with rocepin and�azithromycin given Hx of COPD - would give 7 days of beta-lactam and 5 days zithromax
-�Continue scheduled DuoNebs and budesonide�as takes Breztri at home
- Transfuse blood products as needed to keep Hb>7g/dL and plt>50k
- Replete K>4, Mg>2
- Stress ulcer prophylaxis
- DVT ppx
Patient being prepared for DC home. Pulmonary service will now sign off. Thank you for allowing us to be involved in the care of this patient. Please reconsult if there are any additional questions/concerns.
(Patient was seen and examined on 05/23/2023)
I will arrange for outpt follow up with our office in [facility].
Data:
CXR 05-19-2023:��Bilateral pneumonia, new from prior (CXR from 04/24/2023)
Renal Transplant US 05-20-2023:��Normal sonographic appearance of the right lower quadrant renal transplant.
Outpatient [facility] Data:
PFT:
������ PFT 04/02/08-FEV1 1.65 L-56%, FVC 2.81 L-75%, no significant BD response
�������Spirometry 07/04/20-FEV1 1.14 L-44%, FVC 1.96 L-58%, no significant BD response except at the small airway level. Moderate obstruction.
�������PFT 01/19/22-Patient was a late cancellation
�������PFT 08/16/22-FEV1 1.47-58%, FVC 2.59-70%, no significant BD response, TLC 100%, RV 100%, DLCO 53%. Mild obstruction and moderate reduction in diffusing capacity.
6 MWT:
������ 6 minute walk test 07/04/20-Ambulated 600 feet with desaturation mi 91% and maximum heart rate 66. No supplemental oxygen required.
�������6 minute walk test 01/19/22-Patient was a late cancellation
�������6 minute walk test 08/16/22-Ambulated 953, desaturation mi 92% and maximum heart rate of 82. Maximum dyspnea scale score 0. No supplemental oxygen required.
FENO:
������ FeNO 07/04/20- 14 ppb
�������FeNO 01/19/22-Patient was a late cancellation
�������FeNO 08/16/22- 6 ppb.
RADIOGRAPHIC STUDIES:
������ CT chest 10/01/13-Interval improvement in findings of sarcoidosis, interval improvement in soft tissue component of mediastinal and hilar lymphadenopathy, interval improvement in interstitial groundglass opacifications
�������Chest x-ray 06/13/20-lungs clear, calcified hilar lymph nodes, unchanged compared with 12/14/19.
CARDIAC STUDIES:
������ Echocardiogram 03/23/16-EF 55-60%, mild mitral regurgitation.
�������Echocardiogram 06/13/20-EF 65-70%, aortic sclerosis without stenosis, no significant valvular disease.
�������Stress test 07/02/20-EF 70%, moderate risk study, no change compared to 11/28/14.
�������Echocardiogram 03/06/21-EF 60-65%, no significant valvular disease.
LABS:
������ Eosinophils12/17/19-100
�������IgE 09/14/11-14
�������ILD. Serology 09/14/11-negative
�������Allergy panel and hypersensitivity panel 09/13/17-negative
�������ABG 06/12/19--45/63/7.35
�������WESLEY 09/26/12-126
�������WESLEY 09/14/11-218
�������WESLEY 01/08/10-61
�������WESLEY 04/29/07-181
�������Bronchoscopy 09/2011-negative AFB, fungus, TB, and cytology,
�������ABG 06/12/19-45/63/7.35
�������Hemoglobin 04/08/22-14.1.
Subjective Data
-
Date of Service:
Date of Service: May 23, 2023
Chief Complaint: Pulmonary Follow Up
Subjective:
Seen today. Being preaped for DC home. No acute overnight events reported. Saturating 95% on room air. Denies SOB or chest pain.
Review of Systems
General: Other (neg unless mentioned above)
Objective Data
Data Reviewed
Vital Signs / I&O / Oxygen:
Vital Signs
Temp Pulse Resp BP Pulse Ox
97.8 F 65 17 129/56 95
05/23/23 11:00 05/23/23 11:00 05/23/23 11:00 05/23/23 11:00 05/23/23 11:00
Intake and Output
05/22/23 05/23/23 05/24/23
06:59 06:59 06:59
Intake Total 1959 1560 / 1560
Balance 1959 1560 / 1560
SaO2 95
Nasal Cannula flow liters per 4
minute
Physical Exam
General: Comfortable
HEENT: Normocephalic and Anicteric
Cardiovascular: S1-S2 and Peripheral Edema (negative)
Respiratory: Wheeze (negative), Crackles (bibasilar), Rhonchi (bibasilar) and Accessory Resp Muscle Use (neg)
GI: Soft, Non Distended and Non Tender
Neurology: AO x 3 and Tremors (negative)
Skin: Warm and Dry
Labs/Micro/Reports
Lab Data
05/23/23 05:36
05/23/23 05:36
Microbiology
05/19/23 12:44 Blood/Venous Blood Culture - Preliminary
No Growth in 72 hours- Final report to follow
05/19/23 12:06 Blood/Venous Blood Culture - Preliminary
No Growth in 72 hours- Final report to follow
05/19/23 15:27 Sputum Respiratory Culture - Final
Haemophilus influenzae
05/19/23 15:27 Sputum Gram Stain - Final
[2023-05-23 11:00] VITALS: BP 129/56
--- NOTE | 2023-05-23 11:03 | W.DCSUMMARY ---
Discharge Summary
Discharge Data
Date of Admission: 05/19/23
Date of Discharge: 05/23/23
-
Pending Results: No
Hospital Course
Discharge diagnosis:
Acute hypoxic respiratory failure
Septic shock
Haemophilus influenza pneumonia
Acute on chronic obstructive pulmonary disease exacerbation
Acute kidney injury superimposed on stage IIIb chronic kidney disease
Type 2 diabetes with hyperglycemia
History of renal transplant
Hyponatremia
Essential hypertension
Chronic pain syndrome opioid dependency
Obesity due to excess calories
Consults: Pulmonology/scrubber operator, nephrology, neurology
Head CT:
No acute intracranial abnormality noted.
CXR:
Bilateral pneumonia, new from prior.
Renal US:
Normal sonographic appearance of the right lower quadrant renal transplant.
Hospital course:
67-year-old female with a past medical history of sarcoidosis, moderate COPD with air trapping, asthma, depression, renal transplant on chronic immunosuppression and hypertension�was admitted for septic shock secondary to pneumonia.
Patient was initially seen in the ICU with the scrubber operator. She was treated with Rocephin, azithromycin, Levophed, and stress dose steroids. She was then weaned off of pressors.
Patient also had left-sided weakness. Head CT was negative. She was seen in conjunction with neurology, who suspects that patient was leaning to the left due to hypotension and sepsis. No further stroke workup was recommended by neurology.
Sputum culture grew out haemophilus influenza. Patient is discharged on cefprozil to complete a 7-day course. Patient initially required oxygen, was then successfully weaned to room air.
Patient also had acute on chronic COPD exacerbation. She was treated with IV Solu-Cortef, and then transitioned to prednisone taper.
Patient has a history of a renal transplant, and had acute kidney injury superimposed on stage IIIb chronic kidney disease secondary to sepsis. She was seen in conjunction with nephrology. She received IV fluids as above. Her creatinine peaked at
3.0, and was 2.5 on the day of discharge, her baseline is about 2.0.
Patient also had steroid-induced hyperglycemia, and was seen in conjunction with the diabetes nurse practitioner. Her hemoglobin A1c 7.9. She is discharged on NovoLog 8 units AC 3 times daily, Lantus 50 units at bedtime.
Patient is medically stable and cleared by pulmonology and nephrology for discharge. 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
Disposition: Home with home care
Discharge planning: Required 35 minutes
Discharge Plan
-
Patient Disposition: Home with Home Care
Discharge Diagnosis/Procedures: Acute COPD exacerbation, septic shock, pneumonia, acute kidney injury, chronic kidney disease, uncontrolled diabetes
Condition: Good
Diet: Diabetic, Carb Controlled
Activity: As tolerated
Driving Restrictions: As prior to admission
Bathing Restrictions: None
Blood Work: BMP in 1 week with your primary care doctor
Other Services: VN
Referrals:
Brenda Braga PA-C [Family Provider] - in less than 1 week
Abran Castelan MD [Active] - in two to three weeks
Prescriptions:
New
(DME) OneTouch Verio test strips Strip
Qty: 120 0RF
Rx Instructions:
Pt testing 4 times a day
(DME) pen needle, diabetic [BD Ultra-Fine Alanna Pen Needle] 32 gauge x 5/32' Needle
Qty: 130 0RF
Rx Instructions:
Pt taking insulin 4 times a day
(DME) lancets [OneTouch Delica Plus Lancet] 30 gauge Misc
Qty: 120 0RF
Rx Instructions:
Pt testing 4 times a day
carvedilol 3.125 mg Tablet
3.125 mg PO BID Qty: 60 0RF
insulin aspart U-100 [Novolog FlexPen U-100 Insulin] 100 unit/mL (3 mL) Insulin Pen
8 unit SC AC Qty: 15 0RF
azithromycin 250 mg Tablet
250 mg PO DAILY Qty: 3 0RF
insulin glargine [Lantus Solostar U-100 Insulin] 100 unit/mL (3 mL) insulin pen
15 unit SC QPM Qty: 3 0RF
cefprozil 500 mg tablet
500 mg PO BID Qty: 8 0RF
prednisone 10 mg tablet
10 mg PO DIRECTED Qty: 32 0RF
Rx Instructions:
4 tabs daily x2 days, 3 tabs daily x 4days, 2 tabs daily x 4days, 1 tab daily x 4days.
(DME) blood-glucose meter [ListRunneruch Verio Flex meter] Misc
Qty: 1 0RF
Rx Instructions:
Pt Testing 4 times a day
Continued
montelukast 10 MG tablet
10 mg PO HS
escitalopram oxalate 20 MG tablet
20 mg PO HS
aripiprazole 10 MG tablet
10 mg PO HS 0RF
tacrolimus 1 mg capsule
1 mg PO QPM
oxycodone 5 mg tablet
10 mg PO HS
Patient Comments:
02/09/2022: last filled 01/27/22, 120 tabs for 30 days from [facility]
Nexlizet 180-10 mg Tablet
1 tab PO DAILY
Breztri Aerosphere 160-9-4.8 mcg/actuation HFA aerosol inhaler
2 inh INHALATION R BID
nifedipine [Procardia XL] 90 mg tablet extended release 24hr
90 mg PO DAILY Qty: 30 2RF
oxycodone 5 mg Tablet
5 mg PO Q8HPRN PRN (Reason: severe pain)
calcium carbonate [Calcium 600] 600 mg calcium (1,500 mg) Tablet
600 mg PO DAILY
albuterol sulfate 90 mcg/actuation HFA aerosol inhaler
2 puff INHALATION R Q4HPRN PRN (Reason: SOB)
tacrolimus 1 mg capsule
2 mg PO DAILY
cholecalciferol (vitamin D3) [Vitamin D3] 25 mcg (1,000 unit) Tablet
1,000 unit PO DAILY
gabapentin [Neurontin] 300 mg Capsule
300 mg PO HS
Discontinued
carvedilol 6.25 mg Tablet
6.25 mg PO BID
prednisone 5 mg tablet
5 mg PO DAILY
Hold Instructions: Start when done with tapering steroids
Medical Marijuana
1 dose PO QHS PRN (Reason: pain or anxiety)
furosemide 20 mg tablet
20 mg PO DAILY
Discharge Orders:
Discharge Patient (As Directed); Ordered 05/23/23
Ordered By: Dereje Ballard
Discharge Date and Time
Discharge Date/Time: 05/23/23 13:39
[2023-05-23 11:33] LABS: Glucose - Point of Care 211 mg/dl (70-99)
--- NOTE | 2023-05-23 11:34 | CM ---
CM reviewed chart and noted dc order
Pt accepted for service by [facility] per [facility]
Bedside meeting with pt- plan remains home with [facility]
IMM verbally reviewed- copy provided
Spouse will transport home
VN order on chart
Discharge Disposition- home with [facility]- spouse transport
--- NOTE | 2023-05-23 11:48 | W.PN.NEPH.PH ---
Today's Communication / Plan
-
dc
Assessment/Plan
-
Assessment:
PNA
SIMBA on CKD (bl Cr ~2)
Living unrelated kidney transplant at [place] in 2019
HTN
Hx sarcoidosis
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
COPD
Fibromyalgia
DLD
Chronic Pain
Anxiety/Depression
Plan:
-for dc
-has routine labs next week and f/u in OV with me
-abx per primary team
-
-
Date of Service: May 23, 2023
CC / HPI / ROS
-
Chief Complaint:
SIMBA with CKD , h/o KTP
History of Present Illness:
cr down to 2.5
no fever
BP increasing trend, did not require midodrine
sodium normal
bicarb at 23 better\\abx for PNA
Review of Systems:
no cp or sob at rest
no dysuria
Labs
-
Labs:
WBC 6.8 10^3/uL (4.8-10.8) 05/23/23 05:36
RBC 4.08 10^6/uL (4.20-5.40) L 05/23/23 05:36
Hgb 12.2 g/dL (12.0-16.0) 05/23/23 05:36
Hct 36.1 % (37.0-47.0) L 05/23/23 05:36
Plt Count 195 10^3/uL (130-400) 05/23/23 05:36
Sodium 139 mmol/L (135-145) 05/23/23 05:36
Potassium 4.0 mmol/L (3.5-5.1) 05/23/23 05:36
Chloride 102 mmol/L (98-107) 05/23/23 05:36
Carbon Dioxide 25 mmol/L (22-30) 05/23/23 05:36
BUN 58 mg/dl (7-17) H 05/23/23 05:36
Creatinine 2.5 mg/dL (0.6-1.0) H 05/23/23 05:36
eGFR 20.69 05/23/23 05:36
Glucose 106 mg/dl (70-99) H 05/23/23 05:36
Calcium 9.0 mg/dl (8.4-10.2) 05/23/23 05:36
Albumin 3.0 g/dl (3.5-5.0) L 05/23/23 05:36
Physical Exam
-
Vital Signs:
Vital Signs
Temp Pulse Resp BP Pulse Ox
97.8 F 65 17 129/56 95
05/23/23 11:00 05/23/23 11:00 05/23/23 11:00 05/23/23 11:00 05/23/23 11:00
Cardiovascular:: Regular rate and rhythm
Respiratory:: Bilateral: Coarse
Lung Excursion:: Normal
Abdomen:: Nontender and Soft
Bowel Sounds:: Normal
Extremity Edema:: None: Bilateral:
--- NOTE | 2023-05-24 09:23 | PN.CDI ---
CDI
- -
CDI:
Physician Documentation Request
Admit Date: 05/19/23 15:07
Dear Doctor Do,
Patient is admitted for sepsis and acute hypoxic respiratory failure suspected due to bilateral pneumonia.
Sputum culture was positive for Haemophilus influenzae
Please clarify if a relationship exist between these conditions:
Yes, pneumonia is related to/associated with/due to Haemophilus influenzae
No, pneumonia is not related to/associated with/due to Haemophilus influenzae
Unable to determine
Use of terms such as suspected, likely, concern for, or probable (associated with a specific diagnosis that is being evaluated, monitored, or treated as if it exists) are acceptable and can be coded in the inpatient setting, when documented at the
time of discharge.
Thank you,
Jeannette Clarke RN, BSN
CDI Specialist
tiger text
Please use your independent medical judgment in providing your response.
== END 2023-05-23 13:39 | disposition home health service (06) | DRG 871 ==
LOC: 3 WEST ACU 15:07
PROVIDERS: Clinical Nurse Specialist Family Health; Emergency Medicine; ADMITTING PHYSICIAN Hospitalist; ATTENDING PHYSICIAN Family Medicine; CONSULT PHYSICIAN Internal Medicine Critical Care Medicine; CONSULT PHYSICIAN Student in an Organized Health Care Education/Training Program; EMERGENCY PHYSICIAN Emergency Medicine; FAMILY PHYSICIAN Physician Assistant; OTHER PHYSICIAN Registered Nurse Critical Care Medicine
DX: A41.3 Sepsis due to Hemophilus influenzae (principal); J14 Pneumonia due to Hemophilus influenzae; R65.21 Severe sepsis with septic shock; J96.01 Acute respiratory failure with hypoxia; N17.0 Acute kidney failure with tubular necrosis; J44.0 Chronic obstructive pulmonary disease with (acute) lower respiratory infection; D84.821 Immunodeficiency due to drugs; J45.901 Unspecified asthma with (acute) exacerbation; J44.1 Chronic obstructive pulmonary disease with (acute) exacerbation; E87.1 Hypo-osmolality and hyponatremia; Z94.0 Kidney transplant status; D86.9 Sarcoidosis, unspecified; E66.09 Other obesity due to excess calories; N18.32 Chronic kidney disease, stage 3b; Z68.30 Body mass index [BMI] 30.0-30.9, adult
CPT/HCPCS: 70450; 71046; 76776; 80053; 80197; 81003; 82607; 82728; 82746; 82962; 83036; 83605; 84443; 85025; 85610; 85652; 85730; 87040; 87070; 87077; 87185; 87205; 87502; 87811; 93005; 94640; 96374; 97163; 97165; 97530; 99291

== ENCOUNTER → 2023-06-09 14:00 | Outpatient (REF) | payer MEDICARE, SELFPAY | LOC: HWRAD 14:00 | PROVIDERS: ATTENDING PHYSICIAN Nurse Practitioner Adult Health; FAMILY PHYSICIAN Physician Assistant | DX: J18.9 Pneumonia, unspecified organism (principal) | CPT/HCPCS: 71046 ==

== ENCOUNTER 2023-06-28 06:26 | Day surgery (SDC) | payer MEDICARE, SELFPAY ==
[2023-06-28 12:41] VITALS: BMI 32.6
[2023-06-28 12:44] VITALS: BMI 32.6
[2023-06-28 12:48] VITALS: BP 166/70
[2023-06-28 13:06] LABS: Glucose - Point of Care 48 mg/dl (70-99)
[2023-06-28] MEDS: DEXTROSE 50% SYRINGE 12.5 GRAMS IV (13:21)
[2023-06-28 13:41] LABS: Glucose - Point of Care 113 mg/dl (70-99)
[2023-06-28] MEDS: DUONEB 3 ML INH (14:05)
[2023-06-28 15:46] VITALS: BP 127/59
[2023-06-28 15:56] LABS: Glucose - Point of Care 170 mg/dl (70-99)
[2023-06-28 16:00] VITALS: BP 126/60
[2023-06-28 16:15] VITALS: BP 151/70; BP 154/70
== END 2023-06-28 16:34 | disposition home or self-care (01) ==
LOC: SDS 06:26
PROVIDERS: ATTENDING PHYSICIAN Internal Medicine Gastroenterology
DX: K86.2 Cyst of pancreas (principal); K83.8 Other specified diseases of biliary tract; R93.3 Abnormal findings on diagnostic imaging of other parts of digestive tract
CPT/HCPCS: 43242; 82962; 94640

== ENCOUNTER → 2023-08-09 10:32 | Outpatient (REF) | payer OTHER, SELFPAY | LOC: HWRAD 10:32 | PROVIDERS: ATTENDING PHYSICIAN Internal Medicine Critical Care Medicine; FAMILY PHYSICIAN Physician Assistant | DX: Z87.891 Personal history of nicotine dependence (principal) | CPT/HCPCS: 71271 ==

== ENCOUNTER 2023-08-15 12:10 | Inpatient (IN) | payer OTHER, SELFPAY ==
[2023-08-15] VITALS (9 sets, daily range): BP systolic 97–133; BP diastolic 51–61; BMI 37.7; BMI 36.3
--- NOTE | 2023-08-15 08:42 | ED.GENMED ---
History of Present Illness
General
Chief Complaint: Generalized Pain
Time Seen by Provider: 08/15/23 08:40
Travel History
Have you had any contact with someone who has COVID-19?: No
Do you have any symptoms of coronavirus? Fever > 100 degrees, chills, cough, shortness of breath, sore throat, loss of taste or smell, muscle aches, or headache?: No
History of Present Illness
History of Present Illness:
68-year-old female with history of COPD, hypertension, hyperlipidemia, sarcoidosis, and renal failure status post kidney transplant at [place] in 2019 presents to the emergency department for evaluation of shortness of breath and fever. She notes
that she is not short of breath progressively for the past week but today developed a fever. She notes that approximate 3 to 4 weeks ago she was treated with a course of steroids and home oxygen for COPD exacerbation by her personal driver. She does
report coughing but denies any purulent sputum, denies any chest pain or leg swelling currently.
Past History
Past History
ED Past Medical History: Asthma, COPD, Fibromyalgia, HTN, Hypercholesterolemia, Renal failure (Status post renal transplant May 2018 right kidney), Psychiatric (Anxiety) and Other (Sarcoidosis); Negative CAD
ED Past Surgical History: Cholecystectomy and Urological (Bilateral Kidney transplants)
Social History
Tobacco: Former smoker
Alcohol: Occasional
Drug: Marijuana
Personal:
Living: with family
Employment: Employed
Family History
Family History: Hypertension, Cancer (Mother had breast cancer) and Other (Son has sarcoidosis)
Review of Systems
Review of Systems
Allergies reviewed?: Yes
All Other Systems: ROS reviewed and negative except as documented in HPI and ROS
Phy Exam
Physical Exam
Physical Exam:
GEN: Tachypneic with pursed lip breathing, nontoxic
Eyes: PERRLA, EOMs intact, no scleral icterus
HENT: NCAT, oral mucosa moist, no JVD, no cervical adenopathy.
Lungs: Tachypneic with accessory muscle use, pursed lip breathing, grossly diminished breath sounds with scant expiratory wheezes heard in the apical regions
Cardiac: RRR, no M/R/G, no obvious peripheral edema radial pulses 2+ bilat
Abdomen: S, NT, ND, NABS, no masses or hepatosplenomegaly
Neuro: AO x 3
MSK: No gross deformity or ecchymosis. No edema. No digital clubbing
Skin: No rashes, petechiae. Normal color, no pallor or jaundice.
Psych: Calm, cooperative, proper hygiene
Course
Orders/Labs/Results
Orders:
Orders
08/15/23 08:40
Acetaminophen [Tylenol] 650 mg PO NOW STA
Albuterol Sulfate [Ventolin Nebules] 10 mg INH R NOW STA
Ipratropium Nebs [Atrovent Nebules] 1 mg INH R NOW STA
MethylPREDNISolone PF [Solu-Medrol Pf] 60 mg IV NOW STA
08/15/23 08:41
Electrocardiogram (*1) Urgent
Reason for Study: Shortness of Breath
EKG- Treatment ONCE
CR Chest Portable - 1 View Urgent
Comment:
Reason For Exam: SOB
Reason Study Needs to be Portable: Other
08/15/23 08:44
COVID-19 Antigen Urgent
Source: Nasal Swab
Complete Blood Count/With Diff Urgent
Comprehensive Metabolic Panel Urgent
NT-proBNP Urgent
Procalcitonin Urgent
PCT Algorithmm Indication: Respiratory
Troponin I Urgent
Venous Blood Gas Urgent
%Oxygen/Room Air: 75
Blood Culture Q30M
MATT Source: Blood/Venous
Specimen Description:
Influenza A+B Rapid Molecular Urgent
MATT Source: Nasal Swab
Specimen Description:
08/15/23 08:51
Blood Culture Q30M
MATT Source: Blood/Venous
Specimen Description:
08/15/23 09:00
Lactic Acid Urgent
08/15/23 10:13
Azithromycin 500 mg/250 ml [Zithromax Infusion] 500 mg in 250 ml IV NOW
CefTRIAXone [Rocephin] 1,000 mg IV NOW STA
08/15/23 11:40
Admit/Transfer Patient As Directed
Co-Sign Provider:
Level of Care: Inpatient admission
Assign to:: Telemetry
Physician / Group: Daphney
Diagnosis: Hypoxia, concern for pneumonia
Reason for Telemetry: Chest Pain syndromes
Date to Stop Telemetry: 08/17/23
Time to Stop Telemetry: 11:00
Reason for Hospitalization: Above
Expected length of stay greater than two midnights?: Yes
ELOS- Estimated Length of Stay in days: 3
I certify the patient meets the requirements for IP care: Yes
08/15/23 11:45
Code Status As Directed
Resuscitation Status: Full Code
08/15/23 11:49
Add On- LAB Routine
Tests Added?: CHF BNP
08/17/23 11:00
DC Protocol for Telemetry ONCE
Abnormal Lab Results
08/15/23
08:44
MCHC 32.2 L g/dL
(33.0-37.0)
RDW 14.6 H %
(11.5-14.5)
Abs Immat Gran (auto) 0.1 H 10^3/uL
(0-0.05)
Absolute Neuts (auto) 8.3 H 10^3/uL
(1.4-6.5)
Absolute Lymphs (auto) 0.8 L 10^3/uL
(1.2-3.4)
Absolute Monos (auto) 0.9 H 10^3/uL
(0.1-0.6)
Immature Gran % 1.2 H %
(0-0.5)
Neutrophils % 78.7 H %
(42.2-75.2)
Lymphocytes % 7.5 L %
(20.5-51.1)
VBG pO2 100 H mmHg
(30-50)
Chloride 109 H mmol/L
(98-107)
BUN 34 H mg/dl
(7-17)
Creatinine 1.9 H mg/dL
(0.6-1.0)
Glucose 119 H mg/dl
(70-99)
08/15/23 08:44
08/15/23 08:44
Vital Signs
Initial and Last Documented VS:
Initial Vital Signs
Temp Pulse Resp BP Pulse Ox
100.5 F H 69 13 115/54 75
08/15/23 08:32 08/15/23 08:32 08/15/23 08:32 08/15/23 08:32 08/15/23 08:32
Last Documented Vital Signs
Temp Pulse Resp BP Pulse Ox
100.5 F H 59 17 106/53 95
08/15/23 08:32 08/15/23 10:00 08/15/23 10:00 08/15/23 10:00 08/15/23 10:00
MDM/Problems Addressed
MDM/Problems Addressed:
C8-year-old female presents in acute respiratory distress associated with fever. Her work of breathing improved dramatically with supplemental nasal cannula as well as after administration of hour-long nebulizer treatment. She has no leukocytosis
chest x-ray shows no evidence for clear infiltrate however given that she has history of renal transplant she is highly immunocompromised and thus we will cover broadly with IV antibiotics for potential bacterial pneumonia. Ultimately this may be a
viral mediated COPD exacerbation. Given her hypoxia she will require hospitalization for further management. IV steroids initiated in the emergency department. Will admit to the hospitalist service
Comment
Comment:
EKG independently interpreted by me shows normal sinus rhythm at a rate of [address] changes concerning for ischemia
*Critical Care Note
Total Time (30-74mins, 75-104mins- exclusive of procedures): Not Applicable
ED Attending Note
-
Portions of this chart may have been created with voice recognition software.� Occasional wrong word or��sound alike� substitutions may have occurred due to the inherent limitations of voice recognition software.
Discharge Plan
Departure
Patient Disposition: Admit
Date of Disposition: 08/15/23
Time of Disposition: 10:16
Admit to: Med/Surg
Presentation/result/management discussed w/ accepting MD/DO: Hospitalist
Discharge Problem:
Acute exacerbation of chronic obstructive pulmonary disease, Acute hypoxemic respiratory failure
Interventions
Interventions:
*Risk Screen - Suicide Last Done: 08/15/23 09:40
*General Assessment Last Done: 08/15/23 08:32
*Neglect/Abuse Screening Last Done: 08/15/23 10:11
[2023-08-15 09:10] LABS: Venous Blood Gas B.E. -0.8 mmol/L (-4 to +4); Venous Blood Gas HCO3 24.9 mmol/L (22-27); Venous Blood Gas O2 Sat % 98.5 %; Venous Blood Gas pCO2 44 mmHg (35-48); Venous Blood Gas pH 7.36 (7.32-7.43); Venous Blood Gas pO2 100 mmHg (30-50)
[2023-08-15 09:13] LABS: % Basophils 0.7 % (0-2); % Eosinophils 3.9 % (0-6); % Immature Granulocytes 1.2 % (0-0.5); % Lymphocytes 7.5 % (20.5-51.1); % Neutrophils 78.7 % (42.2-75.2); Absolute Basophils 0.1 10^3/uL (0-0.2); Absolute Eosinophils 0.4 10^3/uL (0-0.7); Absolute Immature Granulocytes 0.1 10^3/uL (0-0.05); Absolute Lymphocytes 0.8 10^3/uL (1.2-3.4); Absolute Monocytes 0.9 10^3/uL (0.1-0.6); Absolute Neutrophils 8.3 10^3/uL (1.4-6.5); Hemoglobin 13.2 g/dL (12.0-16.0); Mean Corp Hgb Conc. 32.2 g/dL (33.0-37.0); Mean Corpuscular Hgb 30.4 pg (27.0-31.0); Mean Corpuscular Volume 94.5 fL (81.0-99.0); Mean Platelet Volume 10.1 fL (7.4-10.4); Nucleated Red Blood Cells % 0 %; Platelet Count 237 10^3/uL (130-400); Red Blood Cell Count 4.34 10^6/uL (4.20-5.40); Red Cell Dist. Width 14.6 % (11.5-14.5); White Blood Cell Count 10.6 10^3/uL (4.8-10.8)
[2023-08-15] MEDS: SOLU-MEDROL PF 60 MG IV (09:15)
[2023-08-15] MEDS: TYLENOL 650 MG PO (09:16)
[2023-08-15] MEDS: ATROVENT NEBULES 1 MG INH (09:17)
[2023-08-15] MEDS: VENTOLIN NEBULES 10 MG INH (09:17)
[2023-08-15 09:27] LABS: ALT (SGPT) 14 U/L (0-35); AST (SGOT) 21 U/L (14-36); Albumin 4.1 g/dl (3.5-5.0); Alkaline Phosphatase 90 U/L (38-126); Blood Urea Nitrogen 34 mg/dl (7-17); Calcium 9.8 mg/dl (8.4-10.2); Carbon Dioxide 23 mmol/L (22-30); Chloride 109 mmol/L (98-107); Estimated Creatinine Clearance 33 ml/min; Glucose 119 mg/dl (70-99); Potassium 4.4 mmol/L (3.5-5.1); Sodium 138 mmol/L (135-145); Total Bilirubin 0.6 mg/dl (0.2-1.3); Total Protein 6.8 g/dl (6.3-8.2); eGFR 28.58
[2023-08-15 09:33] LABS: NT-proBNP 1760 pg/ml; Troponin I 0.015 ng/ml
[2023-08-15 09:39] LABS: Lactic Acid 1.1 mmol/L (0.7-2.0)
[2023-08-15 09:50] LABS: Procalcitonin < 0.05 ng/ml (0.0-0.25)
[2023-08-15 10:00] LABS: COVID-19 Antigen Negative (Negative)
[2023-08-15] MEDS: ZITHROMAX INFUSION 250 IV (10:42)
[2023-08-15] MEDS: ROCEPHIN 1000 MG IV (10:42)
--- NOTE | 2023-08-15 11:53 | HPS.HSE ---
Family Physician
-
Family Physician: Brneda Brgaa
Chief Complaint
-
Generalized body aches.
Worsening of dyspnea.
Fever
History of Present Illness
Patient is a 68-year-old female with extensive past medical history including renal transplant on immunosuppression, COPD, sarcoidosis, diabetes who presents to the emergency room with complaint body aches/pain all over the body for a few days. She
could not pinpoint any specific pain referred to generalized pain. She complains of generalized fatigue, shortness of breath, denies fever at home. Denies any chest pain, cough or sputum production prior to presentation. While in the emergency
room patient was found to have hypoxia with pulse ox down to 70s upon arrival which quickly recovered with addition of 5 to 6 L of oxygen through nasal cannula. Patient is not in respiratory distress. In addition patient found to be febrile with
temperature 100.5.
At the time of my examination, patient is not in distress resting comfortably while on oxygen supplementation 5 L with saturations at mid 90s.
Medical History
Past Medical History
Past Medical History: Reports COPD, IDDM and Other (Renal transplant, CKD stage IIIa-B, sarcoidosis with extrapulmonary manifestations, chronic immunosuppression)
Past Surgical History: Reports Other (Renal transplant)
Social History
Tobacco: Non-smoker
Alcohol: None
Drug: None
Living: With Family
Family History
Family History: Not pertinent
Allergies / Home Medications
Allergies reflects when Allergies were last updated in [facility].
Home Medications with original date entered in [facility]
Allergy/Medication List:
Allergies
Allergy/AdvReac Type Severity Reaction Status Date / Time
bee venom protein (honey bee) Allergy Severe Anaphylaxis Verified 06/28/23 12:50
duloxetine [From Cymbalta] Allergy Intermediate tardive Verified 06/28/23 12:50
dyskinesia
cephalexin monohydrate Allergy abdominal Verified 06/28/23 12:50
[From Keflex] pain;
tolerated
Cefepime
cimetidine Allergy Anaphylaxis Verified 06/28/23 12:50
latex [Latex] Allergy Hives Verified 06/28/23 12:50
Latex, Natural Rubber Allergy Rash Verified 06/28/23 12:50
morphine Allergy 'MAKES ME Verified 06/28/23 12:50
MEAN'
omeprazole Allergy Anaphylaxis Verified 06/28/23 12:50
oxycodone HCl Allergy 'itching Verified 06/28/23 12:50
[From OxyContin] like I'm
crawling
out of my
skin'
Penicillins Allergy Hives Verified 06/28/23 12:50
Sulfa (Sulfonamide Allergy abdominal Verified 06/28/23 12:50
Antibiotics) pain
Tricyclic Antidepressants Allergy V. TACH Verified 06/28/23 12:50
and Tricy
[Tricyclic Compounds]
Home Medications
escitalopram oxalate 20 mg tablet 20 mg PO HS Depression 06/12/19
montelukast 10 mg tablet 10 mg PO HS Allergies 06/12/19
aripiprazole 10 mg tablet 10 mg PO HS 12/17/19
bempedoic acid 180 mg-ezetimibe 10 mg tablet (Nexlizet) 1 tab PO DAILY High cholesterol 02/09/22
budesonide 160 mcg-glycopyr 9 mcg-formot 4.8 mcg/actuation HFA inhaler (Breztri Aerosphere) 2 inh inhalation R BID Lung/breathing issues 02/09/22
oxycodone 5 mg tablet 10 mg PO HS Pain 02/09/22
tacrolimus 1 mg capsule, immediate-release 1 mg PO QPM Transplant 02/09/22
oxycodone 5 mg tablet 5 mg PO BID 04/06/22
albuterol sulfate 90 mcg/actuation aerosol inhaler 2 puff inhalation R Q4HPRN PRN SOB 04/24/23
calcium carbonate (Calcium 600) 600 mg PO DAILY Supplement 04/24/23
cholecalciferol (vitamin D3) 25 mcg (1,000 unit) tablet (Vitamin D3) 1,000 unit PO DAILY Supplement 04/24/23
gabapentin 300 mg capsule (Neurontin) 300 mg PO TID neuropathy in feet, RLS 04/24/23
tacrolimus 1 mg capsule, immediate-release 2 mg PO DAILY Transplant 04/24/23
insulin aspart U-100 100 unit/mL (3 mL) subcutaneous pen (Novolog FlexPen U-100 Insulin aspart) 8 unit (0.08 mL) SC AC #15 mL 05/22/23
levocetirizine 5 mg tablet (24HR Allergy Relief) 5 mg PO DAILYPRN PRN allergies 06/28/23
carvedilol 3.125 mg tablet 6.25 mg PO BID 08/15/23
insulin glargine 100 unit/mL (3 mL) subcutaneous pen (Lantus Solostar U-100 Insulin) 15 unit SC HS 08/15/23
nifedipine 60 mg tablet,extended release 24 hr 60 mg PO DAILY 08/15/23
prednisone 10 mg tablet 10 mg PO DAILY 08/15/23
Review of Systems
-
A 12 point ROS was completed and negative except as noted: Yes
Physical Exam
Vital Signs
Vital Signs
Temp Pulse Resp BP Pulse Ox
100.5 F H 59 17 106/53 95
08/15/23 08:32 08/15/23 10:00 08/15/23 10:00 08/15/23 10:00 08/15/23 10:00
Physical Exam
General: Well Developed, Well Nourished and No Apparent Distress
HEENT: NormoCephalic, Moist mucous membranes and Atraumatic
Respiratory: Clear
Cardiac: S1/S2 and Regular Rhythm; No Murmur or Rub
GI: Soft, Non Tender, Non Distended and Normal Bowel Sounds; No Organomegaly
Rectal: Deferred by Provider
Musculoskeletal: No Clubbing, No Cyanosis and No Edema
Skin: No Rash
Neuro: Nonfocal/grossly intact
Laboratory Results
-
08/15/23 08:44
08/15/23 08:44
Laboratory Results
Lactic Acid 1.1 mmol/L (0.7-2.0) 08/15/23 09:00
Total Bilirubin 0.6 mg/dl (0.2-1.3) 08/15/23 08:44
AST 21 U/L (14-36) 08/15/23 08:44
ALT 14 U/L (0-35) 08/15/23 08:44
Alkaline Phosphatase 90 U/L (38-126) 08/15/23 08:44
Troponin I 0.015 ng/ml 08/15/23 08:44
Data Reviewed
-
Diagnostic Radiology: Image Personally Visualized and interpreted and Report Reviewed by me
Lab Data: Labs Reviewed by me
Impression/Plan
-
IMPRESSION:
68 years old female with COPD, renal transplant and immunosuppression, diabetes, fibromyalgia, chronic pain, who presents with generalized body ache, fatigue.
Fever 100.5 on presentation
Exertional dyspnea
Acute hypoxic respiratory failure with pulse ox of 70% upon presentation.
Concern for evolving sepsis/pneumonia.
Conditions prior to admission:
Recent hospitalization 05/18 with pneumonia and sepsis.
COPD/asthma
Multiple pulmonary nodules under surveillance
Sarcoidosis with extrapulmonary manifestations
Renal transplant
Chronic immunosuppression with prednisone and tacrolimus.
History of BK viremia requiring discontinuation of MMF
CKD stage IIIa�B with baseline creatinine of 2.
IDDM.
Dyslipidemia
Chronic pain with opiate dependence. Fibromyalgia
Former tobacco use disorder.
Anxiety/depression
PLAN:
Presentation with nonspecific complaints including generalized body ache.
Febrile
Acute hypoxic respiratory failure with pulse ox of 70%.
Chest x-ray consistent with chronic changes/increased vascularity but no focal infiltrates.
Recent CT scan of the chest reviewed for surveillance of pulmonary nodules.
Patient denies any cough/worsening of cough or sputum production upon presentation.
Exam with decreased breath sounds and no bronchospasm.
Continue oxygen supplementation with attempt to wean.
Check pro CHF BNP, chest x-ray with increased pulmonary markings, most recent echocardiogram with preserved biventricular function.
Empiric antibiotics ceftriaxone/Zithromax covering community-acquired pathogens for pneumonia
Follow blood cultures
Check sputum culture if conditions present
COPD.
? If COPD exacerbation patient not bronchospastic on exam.
Not on O2 supplementation at home.
Continue O2 with attempt to wean off as tolerates.
Antibiotics as above.
Continue inhaled corticosteroids and short acting bronchodilators.
CKD stage IIIa�B with baseline creatinine of 2.0
Monitor BMP
Status post renal transplant
Continue immunosuppression prednisone/tacrolimus
IDDM.
Refresh hemoglobin A1c.
Continue basal bolus protocol.
Carbohydrate controlled diet.
Continue insulin Lantus/NovoLog AC at preadmission dose adjusted accordingly.
Essential hypertension
Continue nifedipine and Coreg monitor for hypotension
Chronic pain syndrome/fibromyalgia/opioid dependence
Continue oxycodone gabapentin.
Physical therapy evaluation.
DVT prophylaxis heparin
Full code
[2023-08-15 16:58] LABS: Glucose - Point of Care 243 mg/dl (70-99)
[2023-08-15] MEDS: NOVOLOG FLEXPEN 8 UNITS SC (17:32)
[2023-08-15] MEDS: NOVOLOG FLEXPEN-LOW RESISTANCE SC (17:33)
[2023-08-15] MEDS: DELTASONE 10 MG PO (17:58)
[2023-08-15] MEDS: NEURONTIN 300 MG PO ×2 (17:58→21:01)
[2023-08-15] MEDS: PROGRAF 1 MG PO (18:01)
[2023-08-15] MEDS: ROXICODONE 5 MG PO (18:02)
[2023-08-15] MEDS: PROCARDIA XL (EXTENDED RELEASE) 60 MG PO (18:03)
[2023-08-15 19:11] LABS: Hepatitis C Antibody Negative (Negative)
[2023-08-15] MEDS: SYMBICORT 160/4.5 MCG INHALER 2 PUFF INH (19:46)
[2023-08-15] MEDS: HEPARIN 5000 UNITS SC (21:00)
[2023-08-15] MEDS: ROXICODONE 10 MG PO (21:00)
[2023-08-15] MEDS: SINGULAIR 10 MG PO (21:01)
[2023-08-15] MEDS: COREG 6.25 MG PO (21:01)
[2023-08-15] MEDS: LEXAPRO 20 MG PO (21:01)
[2023-08-15 21:33] LABS: Glucose - Point of Care 296 mg/dl (70-99)
[2023-08-15] MEDS: PROGRAF 2 MG PO (23:28)
[2023-08-15] MEDS: ABILIFY 10 MG PO (23:30)
[2023-08-15] MEDS: LANTUS 0.149999999999999994 UNITS SC (23:30)
[2023-08-16] VITALS (7 sets, daily range): BP systolic 121–152; BP diastolic 63–73; O2SAT 96
[2023-08-16 07:19] LABS: Glucose - Point of Care 169 mg/dl (70-99)
[2023-08-16 07:50] LABS: % Basophils 0.2 % (0-2); % Immature Granulocytes 1.6 % (0-0.5); % Lymphocytes 4.6 % (20.5-51.1); % Monocytes 6.1 % (1.7-9.3); % Neutrophils 87.5 % (42.2-75.2); Absolute Immature Granulocytes 0.2 10^3/uL (0-0.05); Absolute Lymphocytes 0.5 10^3/uL (1.2-3.4); Absolute Monocytes 0.6 10^3/uL (0.1-0.6); Absolute Neutrophils 8.6 10^3/uL (1.4-6.5); Hematocrit 36.3 % (37.0-47.0); Hemoglobin 11.6 g/dL (12.0-16.0); Mean Corpuscular Hgb 29.7 pg (27.0-31.0); Mean Corpuscular Volume 93.1 fL (81.0-99.0); Mean Platelet Volume 10.2 fL (7.4-10.4); Nucleated Red Blood Cells % 0 %; Platelet Count 205 10^3/uL (130-400); Red Cell Dist. Width 14.1 % (11.5-14.5); White Blood Cell Count 9.8 10^3/uL (4.8-10.8)
[2023-08-16] MEDS: SPIRIVA RESPIMAT 2.5 MCG 2 PUFF INH (07:54)
[2023-08-16] MEDS: SYMBICORT 160/4.5 MCG INHALER 2 PUFF INH ×2 (07:54→19:36)
[2023-08-16 08:24] LABS: Blood Urea Nitrogen 45 mg/dl (7-17); Calcium 9.3 mg/dl (8.4-10.2); Carbon Dioxide 24 mmol/L (22-30); Chloride 107 mmol/L (98-107); Estimated Creatinine Clearance 32 ml/min; Glucose 163 mg/dl (70-99); Potassium 5.3 mmol/L (3.5-5.1); Sodium 136 mmol/L (135-145); eGFR 26.88
[2023-08-16] MEDS: NOVOLOG FLEXPEN-LOW RESISTANCE 1 UNITS SC ×2 (08:29→18:24)
[2023-08-16] MEDS: NOVOLOG FLEXPEN 8 UNITS SC ×3 (08:29→18:24)
[2023-08-16] MEDS: NEURONTIN 300 MG PO ×3 (08:30→21:54)
[2023-08-16] MEDS: PROCARDIA XL (EXTENDED RELEASE) 60 MG PO (08:30)
[2023-08-16] MEDS: PROGRAF 2 MG PO ×2 (08:30→21:54)
[2023-08-16] MEDS: COREG 6.25 MG PO ×2 (08:31→20:31)
[2023-08-16] MEDS: DELTASONE 10 MG PO (08:31)
[2023-08-16] MEDS: OSCAL CAL 500 500 MG PO (08:31)
[2023-08-16] MEDS: ROXICODONE 5 MG PO ×2 (08:31→16:33)
[2023-08-16] MEDS: HEPARIN 5000 UNITS SC ×2 (08:31→20:31)
[2023-08-16] MEDS: VITAMIN D3 (cholecalciferol) 25 MCG PO (08:31)
[2023-08-16 08:32] LABS: Glycohemoglobin (HgbA1c) 5.6 % (4.0-5.6)
[2023-08-16] MEDS: ZITHROMAX 500 MG PO (10:35)
[2023-08-16] MEDS: STERILE WATER FOR INJECTION 10 ML IV (10:35)
[2023-08-16] MEDS: ROCEPHIN 1000 MG IV (10:35)
[2023-08-16 12:01] LABS: Glucose - Point of Care 119 mg/dl (70-99)
--- NOTE | 2023-08-16 12:16 | CM ---
Patient seen bedside with spouse, Claude, initial assessment completed. Patient reports she resides with her spouse in a one story home, 8 steps to enter in the front, 3 steps to enter in the back. Patient reports she has a cane and walker at home if
needed but typically ambulates without device. Patient reports history of [facility] and [facility] in past. Patient confirms PCP Brenda Braga, pharmacy [facility], confirms she has prescription coverage. Patient reports she would be
interested in food resources as sometimes money can be tight, will provide [place] information along with printout of local food resources. CM will continue to follow for all discharge planning needs.
Plan; home with spouse, watch for PT/OT recommendations.
[2023-08-16] MEDS: NOVOLOG FLEXPEN-LOW RESISTANCE SC (12:37)
[2023-08-16 16:45] LABS: Glucose - Point of Care 191 mg/dl (70-99)
--- NOTE | 2023-08-16 17:21 | W.PN.HOSP.TC ---
Today's Communication/Plan
-
MRI of cervical spine.
Continue antibiotics
Wean off oxygen.
Monitor renal function
Follow CMP in AM.
Assessment / Plan
Assessment / Plan
IMPRESSION:
68 years old female with COPD, renal transplant and immunosuppression, diabetes, fibromyalgia, chronic pain, who presents with generalized body ache, fatigue.
Fever 100.5 on presentation
Exertional dyspnea
Acute hypoxic respiratory failure with pulse ox of 70% upon presentation.
Concern for evolving sepsis/pneumonia.
Conditions prior to admission:
Recent hospitalization 05/18 with pneumonia and sepsis.
COPD/asthma
Multiple pulmonary nodules under surveillance
Sarcoidosis with extrapulmonary manifestations
Renal transplant
Chronic immunosuppression with prednisone and tacrolimus.
History of BK viremia requiring discontinuation of MMF
CKD stage IIIa�B with baseline creatinine of 2.
IDDM.
Dyslipidemia
Chronic pain with opiate dependence. Fibromyalgia
Former tobacco use disorder.
Anxiety/depression
PLAN:
Presentation with nonspecific complaints including generalized body ache.
Febrile
Acute hypoxic respiratory failure with pulse ox of 70%.
Chest x-ray consistent with chronic changes/increased vascularity but no focal infiltrates.
Recent CT scan of the chest reviewed for surveillance of pulmonary nodules.
Patient denies any cough/worsening of cough or sputum production upon presentation.
Exam with decreased breath sounds and no bronchospasm.
Continue oxygen supplementation with attempt to wean.
Procedure BNP at 1700 close to baseline
chest x-ray with increased pulmonary markings, most recent echocardiogram with preserved biventricular function.
Empiric antibiotics ceftriaxone/Zithromax covering community-acquired pathogens for pneumonia
Follow blood cultures
Check sputum culture if conditions present
Generalized body ache, patient complains today of mostly cervical spine pain.
Exam with mild tenderness to palpation.
Given fever on presentation, immunosuppressed status, will order MRI to rule out osteomyelitis/abscess.
COPD.
Without exacerbation. No bronchospasm on exam.
Not on O2 supplementation at home.
Continue O2 with attempt to wean off as tolerates.
Antibiotics as above.
Continue inhaled corticosteroids and short acting bronchodilators.
CKD stage IIIa�B with baseline creatinine of 2.0
Monitor BMP
Status post renal transplant
Continue immunosuppression prednisone/tacrolimus
Hyperkalemia monitor
IDDM.
Hemoglobin A1c 5.2
Continue basal bolus protocol.
Carbohydrate controlled diet.
Continue insulin Lantus/NovoLog AC at preadmission dose adjusted accordingly.
Essential hypertension
Continue nifedipine and Coreg monitor for hypotension
Chronic pain syndrome/fibromyalgia/opioid dependence
Continue oxycodone gabapentin.
Physical therapy evaluation.
DVT prophylaxis heparin
Full code
Anticipated Discharge: > 48 hours
Subjective/Interval History
-
Date of Service: August 16, 2023
Objective Data
-
Labs:
Laboratory Results
08/16/23
07:08
WBC 9.8
Hgb 11.6 L
Hct 36.3 L
Plt Count 205
Sodium 136
Potassium 5.3 H
Chloride 107
Carbon Dioxide 24
BUN 45 H
Creatinine 2.0 H
Glucose 163 H
Calcium 9.3
Vital Signs:
Vital Signs
Temp Pulse Resp BP Pulse Ox
97.8 F 68 16 152/73 95
08/16/23 16:26 08/16/23 16:26 08/16/23 16:26 08/16/23 16:26 08/16/23 16:26
I&O
08/15/23 08/16/23 08/17/23
06:59 06:59 06:59
Intake Total 600 / 600
Balance 600 / 600
Physical Exam
-
General: Well Developed and No Apparent Distress
HEENT: Normocephalic, Atraumatic and Moist Mucous Membranes
Respiratory: Clear to Auscultation
Cardiac: Regular Rhythm and S1/S2; Negative Murmur, Rub or Gallop
GI: Soft, Nontender, Nondistended and Normal Bowel Sounds; Negative Organomegaly
Rectal: Deferred by Provider
Musculoskeletal: No Clubbing, No Cyanosis and No Edema
Skin: Negative Rash
Neuro: Nonfocal/Grossly Intact
[2023-08-16 21:23] LABS: Glucose - Point of Care 112 mg/dl (70-99)
[2023-08-16] MEDS: ROXICODONE 10 MG PO (21:54)
[2023-08-16] MEDS: SINGULAIR 10 MG PO (21:54)
[2023-08-16] MEDS: LANTUS 0.149999999999999994 UNITS SC (21:54)
[2023-08-16] MEDS: LEXAPRO 20 MG PO (21:55)
[2023-08-16] MEDS: ABILIFY 10 MG PO (22:01)
[2023-08-17] MEDS: ROXICODONE 5 MG PO ×3 (00:51→17:39)
[2023-08-17 03:19] VITALS: BP 126/55
[2023-08-17 06:16] LABS: % Basophils 0.3 % (0-2); % Eosinophils 1.4 % (0-6); % Monocytes 8.1 % (1.7-9.3); % Neutrophils 81.2 % (42.2-75.2); Absolute Eosinophils 0.1 10^3/uL (0-0.7); Absolute Immature Granulocytes 0.1 10^3/uL (0-0.05); Absolute Lymphocytes 0.7 10^3/uL (1.2-3.4); Absolute Monocytes 0.7 10^3/uL (0.1-0.6); Absolute Neutrophils 7.4 10^3/uL (1.4-6.5); Hematocrit 33.4 % (37.0-47.0); Hemoglobin 10.9 g/dL (12.0-16.0); Mean Corp Hgb Conc. 32.6 g/dL (33.0-37.0); Mean Corpuscular Hgb 30.1 pg (27.0-31.0); Mean Corpuscular Volume 92.3 fL (81.0-99.0); Mean Platelet Volume 10.5 fL (7.4-10.4); Nucleated Red Blood Cells % 0 %; Platelet Count 211 10^3/uL (130-400); Red Blood Cell Count 3.62 10^6/uL (4.20-5.40); Red Cell Dist. Width 14.3 % (11.5-14.5); White Blood Cell Count 9.1 10^3/uL (4.8-10.8)
[2023-08-17 06:50] LABS: Blood Urea Nitrogen 52 mg/dl (7-17); Calcium 9.3 mg/dl (8.4-10.2); Carbon Dioxide 24 mmol/L (22-30); Chloride 107 mmol/L (98-107); Estimated Creatinine Clearance 33 ml/min; Glucose 82 mg/dl (70-99); Potassium 4.6 mmol/L (3.5-5.1); Sodium 138 mmol/L (135-145); eGFR 28.58
[2023-08-17 07:07] LABS: Glucose - Point of Care 84 mg/dl (70-99)
[2023-08-17 07:55] VITALS: BP 129/73
[2023-08-17] MEDS: SPIRIVA RESPIMAT 2.5 MCG 2 PUFF INH (09:08)
[2023-08-17] MEDS: SYMBICORT 160/4.5 MCG INHALER 2 PUFF INH ×2 (09:09→19:09)
[2023-08-17] MEDS: NOVOLOG FLEXPEN-LOW RESISTANCE SC ×3 (09:33→17:39)
[2023-08-17] MEDS: OSCAL CAL 500 500 MG PO (09:35)
[2023-08-17] MEDS: COREG 6.25 MG PO ×2 (09:35→20:58)
[2023-08-17] MEDS: DELTASONE 10 MG PO (09:36)
[2023-08-17] MEDS: VITAMIN D3 (cholecalciferol) 25 MCG PO (09:38)
--- NOTE | 2023-08-17 09:40 | PN.CDI ---
Addendum entered and electronically signed by Rogelio Shelley MD 08/22/23 10:30:
CKD had been documented
Original Note:
CDI
- -
CDI:
Physician Documentation Request
Admit Date: 08/15/23 12:10
Dear Doctor Daphney,
Please review the following and provide your response in the progress notes.
Clinical Indicators:
08/14 pt admitted with Acute respiratory failure/ Pneumonia
Pt with history renal transplant, CKD stage IIIa-b
Laboratory Tests
08/15/23 08/16/23 08/17/23
08:44 07:08 05:40
Creatinine 1.9 H 2.0 H 1.9 H
eGFR 28.58 26.88 28.58
Please clarify which of the following accurately represents the patient's renal status:
CKD, please provide stage - see criteria
CKD stage IV
Other
Stages of Chronic Kidney Disease*
Level Description GFR
G1 Normal or High >90
G2 Mildly decreased 60-89
G3a Mildly to moderately decreased 45-59
G3b Moderately to severely decreased 30-44
G4 Severely decreased 15-29
G5 Kidney failure <15
Use of terms such as suspected, likely, concern for, or probable (associated with a specific diagnosis that is being evaluated, monitored, or treated as if it exists) are acceptable and can be coded in the inpatient setting, when documented at the
time of discharge.
Thank you,
Kasandra Pascual RN, BSN
CDI Specialist
Please use your independent medical judgment in providing your response.
*Source: Kidney Disease: Improving Global Outcomes (KDIGO) 2012
[2023-08-17] MEDS: NOVOLOG FLEXPEN 8 UNITS SC ×2 (10:31→17:45)
[2023-08-17] MEDS: HEPARIN 5000 UNITS SC ×2 (10:31→20:58)
[2023-08-17] MEDS: ZITHROMAX 500 MG PO (10:32)
[2023-08-17] MEDS: NEURONTIN 300 MG PO ×3 (10:32→20:57)
[2023-08-17] MEDS: PROCARDIA XL (EXTENDED RELEASE) 60 MG PO (10:33)
[2023-08-17] MEDS: STERILE WATER FOR INJECTION 10 ML IV (10:34)
[2023-08-17] MEDS: ROCEPHIN 1000 MG IV (10:34)
[2023-08-17] MEDS: PROGRAF 2 MG PO ×2 (10:34→20:57)
[2023-08-17 12:07] LABS: Glucose - Point of Care 112 mg/dl (70-99)
[2023-08-17 12:32] VITALS: BP 131/61
[2023-08-17] MEDS: NSS (PRESERVATIVE FREE) 0.5 ML IV (13:04)
[2023-08-17] MEDS: ATIVAN 1 MG IV (13:05)
[2023-08-17] MEDS: NOVOLOG FLEXPEN SC (14:00)
--- NOTE | 2023-08-17 14:12 | CM ---
Patient seen bedside, CM provided print out of food resources alone with website [employer]. CM discussed PT recommendation of home health, patient agreeable to referral to [facility], CM will send TT to [facility] Liaison. CM will continue to follow for
discharge planning needs.
Plan; home with [facility] pending acceptance, when stable.
[2023-08-17 16:09] VITALS: BP 112/57
[2023-08-17 16:24] LABS: Erythrocyte Sed Rate 28 mm/hour (0-20)
[2023-08-17 16:48] LABS: Glucose - Point of Care 114 mg/dl (70-99)
--- NOTE | 2023-08-17 17:18 | W.PN.HOSP.TC ---
Today's Communication/Plan
-
Titrate oxygen
Observe off antibiotics
Physical therapy assessment.
Assessment / Plan
Assessment / Plan
IMPRESSION:
68 years old female with COPD, renal transplant and immunosuppression, diabetes, fibromyalgia, chronic pain, who presents with generalized body ache, fatigue.
Fever 100.5 on presentation
Exertional dyspnea
Acute hypoxic respiratory failure with pulse ox of 70% upon presentation.
Concern for evolving sepsis/pneumonia.
Conditions prior to admission:
Recent hospitalization 05/18 with pneumonia and sepsis.
COPD/asthma
Multiple pulmonary nodules under surveillance
Sarcoidosis with extrapulmonary manifestations
Renal transplant
Chronic immunosuppression with prednisone and tacrolimus.
History of BK viremia requiring discontinuation of MMF
CKD stage IIIa�B with baseline creatinine of 2.
IDDM.
Dyslipidemia
Chronic pain with opiate dependence. Fibromyalgia
Former tobacco use disorder.
Anxiety/depression
PLAN:
Presentation with nonspecific complaints including generalized body ache.
Febrile
Acute hypoxic respiratory failure with pulse ox of 70%.
Chest x-ray consistent with chronic changes/increased vascularity but no focal infiltrates.
Recent CT scan of the chest reviewed for surveillance of pulmonary nodules.
Patient denies any cough/worsening of cough or sputum production upon presentation.
Exam with decreased breath sounds and no bronchospasm.
Continue oxygen supplementation with attempt to wean.
PCHFBNP at 1700 close to baseline
chest x-ray with increased pulmonary markings, most recent echocardiogram with preserved biventricular function.
With only single episode of fever and negative culture, empiric antibiotics ceftriaxone/Zithromax discontinued on 08/16
Generalized body ache, patient complains today of mostly cervical spine pain.
Exam with mild tenderness to palpation.
MRI of cervical spine negative for osteomyelitis. Chronic DJD multilevel. No evidence for cord compression.
Patient reports improvement of pain today.
Inflammatory markers only mildly elevated
As per request we will check Lyme titer, although less likely.
COPD.
Without exacerbation. No bronchospasm on exam.
Not on O2 supplementation at home.
Continue O2 with attempt to wean off as tolerates.
Antibiotics as above.
Continue inhaled corticosteroids and short acting bronchodilators.
CKD stage IIIa�B with baseline creatinine of 2.0
Monitor BMP
Status post renal transplant
Continue immunosuppression prednisone/tacrolimus
Hyperkalemia monitor
IDDM.
Hemoglobin A1c 5.2
Continue basal bolus protocol.
Carbohydrate controlled diet.
Continue insulin Lantus/NovoLog AC at preadmission dose adjusted accordingly.
Essential hypertension
Continue nifedipine and Coreg monitor for hypotension
Chronic pain syndrome/fibromyalgia/opioid dependence
Continue oxycodone gabapentin.
Physical therapy evaluation.
DVT prophylaxis heparin
Full code
Anticipated Discharge: 24 - 48 hours
Subjective/Interval History
-
Date of Service: August 17, 2023
Objective Data
-
Labs:
Laboratory Results
08/17/23
05:40
WBC 9.1
Hgb 10.9 L
Hct 33.4 L
Plt Count 211
Sodium 138
Potassium 4.6
Chloride 107
Carbon Dioxide 24
BUN 52 H
Creatinine 1.9 H
Glucose 82
Calcium 9.3
Vital Signs:
Vital Signs
Temp Pulse Resp BP Pulse Ox
98.8 F 61 18 112/57 95
08/17/23 16:09 08/17/23 16:09 08/17/23 16:09 08/17/23 16:09 08/17/23 16:09
I&O
08/16/23 08/17/23 08/18/23
06:59 06:59 06:59
Intake Total 600 / 600 1250 / 1250
Balance 600 / 600 1250 / 1250
Physical Exam
-
General: Well Developed and No Apparent Distress
HEENT: Normocephalic, Atraumatic and Moist Mucous Membranes
Respiratory: Clear to Auscultation
Cardiac: Regular Rhythm and S1/S2; Negative Murmur, Rub or Gallop
GI: Soft, Nontender, Nondistended and Normal Bowel Sounds; Negative Organomegaly
Rectal: Deferred by Provider
Musculoskeletal: No Clubbing, No Cyanosis and No Edema
Skin: Negative Rash
Neuro: Awake, Alert, Oriented, AO x 3 and Nonfocal/Grossly Intact
[2023-08-17] MEDS: ABILIFY 10 MG PO (20:58)
[2023-08-17] MEDS: SINGULAIR 10 MG PO (20:58)
[2023-08-17] MEDS: LEXAPRO 20 MG PO (20:59)
[2023-08-17] MEDS: ROXICODONE 10 MG PO (20:59)
[2023-08-17 21:03] LABS: Glucose - Point of Care 145 mg/dl (70-99)
[2023-08-17] MEDS: LANTUS 0.149999999999999994 UNITS SC (21:03)
[2023-08-17 22:50] VITALS: BP 148/68
[2023-08-18 05:57] LABS: Glucose - Point of Care 82 mg/dl (70-99)
[2023-08-18] MEDS: NOVOLOG FLEXPEN-LOW RESISTANCE SC (07:29)
[2023-08-18 07:30] VITALS: BP 148/74
[2023-08-18 07:30] LABS: Glucose - Point of Care 88 mg/dl (70-99)
[2023-08-18 08:05] LABS: Erythrocyte Sed Rate 23 mm/hour (0-20)
[2023-08-18] MEDS: HEPARIN 5000 UNITS SC (08:06)
[2023-08-18] MEDS: COREG 6.25 MG PO (08:06)
[2023-08-18] MEDS: DELTASONE 10 MG PO (08:06)
[2023-08-18] MEDS: NEURONTIN 300 MG PO (08:07)
[2023-08-18] MEDS: OSCAL CAL 500 500 MG PO (08:07)
[2023-08-18] MEDS: PROGRAF 2 MG PO (08:07)
[2023-08-18] MEDS: PROCARDIA XL (EXTENDED RELEASE) 60 MG PO (08:07)
[2023-08-18] MEDS: ROXICODONE 5 MG PO ×2 (08:07→13:46)
[2023-08-18] MEDS: VITAMIN D3 (cholecalciferol) 25 MCG PO (08:08)
[2023-08-18] MEDS: SPIRIVA RESPIMAT 2.5 MCG 2 PUFF INH (08:55)
[2023-08-18] MEDS: SYMBICORT 160/4.5 MCG INHALER 2 PUFF INH (08:55)
[2023-08-18] MEDS: NOVOLOG FLEXPEN 8 UNITS SC ×2 (09:13→12:57)
[2023-08-18 10:33] LABS: Lyme Antibody Screen, EIA Negative (Negative)
[2023-08-18 10:51] VITALS: PULSE 65; O2SAT 95
--- NOTE | 2023-08-18 11:44 | CM ---
Addendum entered by Palak Flores 08/18/23 15:45:
Patient seen bedside, IMM signed. Spouse to provide transportation home.
Original Note:
Patient seen bedside with spouse, reports no concerns to CM. Watch for home O2 needs. CM will continue to follow for all discharge planning needs.
Plan; home with [facility], watch O2 needs.
[2023-08-18 11:58] LABS: Glucose - Point of Care 171 mg/dl (70-99)
[2023-08-18] MEDS: NOVOLOG FLEXPEN-LOW RESISTANCE 1 UNITS SC (12:57)
--- NOTE | 2023-08-18 15:13 | W.DS.TRANS ---
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
-
Discharge Instructions:
Discharge Diagnosis/Procedures Self limited episode of fever with negative work
up
Chronic pain
Diet Regular
Instructions:
Stand-Alone Forms:
Changes to Home Medications: No
Discharge Medications:
DC Medications w/original date entered in [facility]
escitalopram oxalate 20 mg tablet 20 mg PO HS Depression 06/12/19
montelukast 10 mg tablet 10 mg PO HS Allergies 06/12/19
bempedoic acid 180 mg-ezetimibe 10 mg tablet (Nexlizet) 1 tab PO DAILY High cholesterol 02/09/22
budesonide 160 mcg-glycopyr 9 mcg-formot 4.8 mcg/actuation HFA inhaler (Breztri Aerosphere) 2 inh inhalation R BID Lung/breathing issues 02/09/22
oxycodone 5 mg tablet 10 mg PO HS Pain 02/09/22
oxycodone 5 mg tablet 5 mg PO BID PAIN 04/06/22
albuterol sulfate 90 mcg/actuation aerosol inhaler 2 puff inhalation R Q4HPRN PRN SOB 04/24/23
calcium carbonate (Calcium 600) 600 mg PO DAILY Supplement 04/24/23
cholecalciferol (vitamin D3) 25 mcg (1,000 unit) tablet (Vitamin D3) 1,000 unit PO DAILY Supplement 04/24/23
gabapentin 300 mg capsule (Neurontin) 300 mg PO TID neuropathy in feet, RLS 04/24/23
levocetirizine 5 mg tablet (24HR Allergy Relief) 5 mg PO DAILYPRN PRN allergies 06/28/23
aripiprazole 10 mg tablet 10 mg PO HS Mental Health/Anxiety 08/15/23
carvedilol 3.125 mg tablet 6.25 mg PO BID Blood Pressure 08/15/23
insulin aspart U-100 100 unit/mL (3 mL) subcutaneous pen (Novolog FlexPen U-100 Insulin aspart) 8 unit SC AC Diabetes 08/15/23
insulin glargine 100 unit/mL (3 mL) subcutaneous pen (Lantus Solostar U-100 Insulin) 15 unit SC HS Diabetes 08/15/23
nifedipine 60 mg tablet,extended release 24 hr 60 mg PO DAILY Blood Pressure 08/15/23
prednisone 10 mg tablet 10 mg PO DAILY Anti-Inflammatory 08/15/23
tacrolimus 1 mg capsule, immediate-release (Prograf) 2 mg PO Q12H 08/15/23
Home Medication Changes
Pending Results: No
--- NOTE | 2023-08-18 15:27 | VNURNOTE ---
Home Health Liaison met with patient and spouse at 1300 to discuss [facility] nurse/therapy, visits, schedule and homebound status. Patient is agreeable and understands that visits at home will be 2-3 x per week to assess and teach medical management.
[facility] brochure provided with contact information. Patient is aware that [facility] will contact them for start of care in 1-2 days after discharge from .
[facility] referral completed in [facility].
[2023-08-18 15:40] VITALS: BP 153/74
--- NOTE | 2023-08-19 08:00 | PN.CDI ---
Addendum entered and electronically signed by Rogelio Shelley MD 08/22/23 10:28:
No additional comments
Original Note:
CDI
- -
CDI:
Physician Documentation Request
Admit Date: 08/15/23 12:10
Dear Doctor Daphney,
Please review the following and provide your response in the progress notes.
Clinical Indicators:
08/14 ER note: 'presents in acute respiratory distress associated with fever.' 'pulse ox 75%.'- placed on 5L NC
'Lungs: Tachypneic with accessory muscle use, pursed lip breathing, grossly diminished breath sounds with scant expiratory wheezes heard in the apical regions'
08/14 Progress Note: ' Continue oxygen supplementation with attempt to wean.'
' Continue inhaled corticosteroids and short acting bronchodilators.'
08/14 Pt received 60mg IV Methylprednisolone Sodium Succinate.
Per progress notes 08/15 and 08/16: 'Acute hypoxic respiratory failure with pulse ox of 70%.'
Discharged Summary documentation changed to 'acute hypoxic respiratory insufficiency,'
Please Clarify which of the following accurately represents the patient's respiratory status:
Acute hypoxic respiratory failure
COPD exacerbation
Other
Additional information for Respiratory Failure:
Recognized criteria for Respiratory Failure (Source: [facility] Feb 2013)
ABGs: (1 or more) Symptoms Please indicate type if known
1. p)2 <60 or RA SPO2 <91% on RA 1. Tachypnea, SOB, dyspnea Hypoxic
2. pCO2 50 and pH <7.35 2. Use of accessory muscles Hypercapnic
3. pO2 decrease of pCO2 increase by 3. Pallor or cyanosis Hypoxic and Hypercapnic
10 mmHg from baseline if known 4. Anxiety or restlessness Unable to determine
5. Unable to speak in full sentences
Supplemental O2 of > 40% (5LPM) Intubation is not required
Use of terms such as suspected, likely, concern for, or probable (associated with a specific diagnosis that is being evaluated, monitored, or treated as if it exists) are acceptable and can be coded in the inpatient setting, when documented at the
time of discharge.
Thank you,
Kasanrda Pascual RN, BSN
CDI Specialist
Please use your independent medical judgment in providing your response.
== END 2023-08-18 15:55 | disposition home health service (06) | DRG 864 ==
LOC: 4 WEST ACU 12:10
PROVIDERS: Physician Assistant; ADMITTING PHYSICIAN Internal Medicine; EMERGENCY PHYSICIAN Student in an Organized Health Care Education/Training Program; FAMILY PHYSICIAN Physician Assistant
DX: R50.9 Fever, unspecified (principal); I13.0 Hypertensive heart and chronic kidney disease with heart failure and stage 1 through stage 4 chronic kidney disease, or unspecified chronic kidney disease; Z94.0 Kidney transplant status; D84.821 Immunodeficiency due to drugs; F11.20 Opioid dependence, uncomplicated; I50.9 Heart failure, unspecified; D86.9 Sarcoidosis, unspecified; E11.22 Type 2 diabetes mellitus with diabetic chronic kidney disease; E78.00 Pure hypercholesterolemia, unspecified; F41.9 Anxiety disorder, unspecified; F32.A Depression, unspecified; E87.5 Hyperkalemia; M19.90 Unspecified osteoarthritis, unspecified site; N18.32 Chronic kidney disease, stage 3b; R06.89 Other abnormalities of breathing; R09.02 Hypoxemia; J44.9 Chronic obstructive pulmonary disease, unspecified; G89.4 Chronic pain syndrome; M79.7 Fibromyalgia; Z79.52 Long term (current) use of systemic steroids; Z79.60 Long term (current) use of unspecified immunomodulators and immunosuppressants; Z87.891 Personal history of nicotine dependence; Z11.52 Encounter for screening for COVID-19; Z88.5 Allergy status to narcotic agent; Z88.0 Allergy status to penicillin; Z88.2 Allergy status to sulfonamides; Z88.8 Allergy status to other drugs, medicaments and biological substances; Z88.1 Allergy status to other antibiotic agents; Z91.030 Bee allergy status; Z91.040 Latex allergy status; Z79.4 Long term (current) use of insulin
CPT/HCPCS: 71045; 72141; 80048; 80053; 82805; 82962; 83036; 83605; 83880; 84145; 84484; 85025; 85652; 86140; 86618; 86803; 87040; 87502; 87811; 93005; 94640; 96374; 96375; 97116; 97163; 99285

== ENCOUNTER → 2023-08-25 09:59 | Outpatient (REF) | payer OTHER, SELFPAY | LOC: HWRAD 09:59 | PROVIDERS: ATTENDING PHYSICIAN Physician Assistant; FAMILY PHYSICIAN Physician Assistant | DX: M25.552 Pain in left hip (principal) | CPT/HCPCS: 73502 ==

== ENCOUNTER → 2023-08-29 16:28 | Outpatient (REF) | payer OTHER, SELFPAY | LOC: RAD 16:28 | PROVIDERS: ATTENDING PHYSICIAN Physician Assistant; FAMILY PHYSICIAN Physician Assistant | DX: M79.605 Pain in left leg (principal) | CPT/HCPCS: 93971 ==

== ENCOUNTER → 2023-10-03 17:49 | Outpatient (REF) | payer OTHER, SELFPAY | LOC: PAVMRI 17:49 | PROVIDERS: ATTENDING PHYSICIAN Physician Assistant Surgical; FAMILY PHYSICIAN Physician Assistant | DX: M48.062 Spinal stenosis, lumbar region with neurogenic claudication (principal); G95.9 Disease of spinal cord, unspecified | CPT/HCPCS: 72141; 72148 ==

== ENCOUNTER 2023-10-28 11:08 | Emergency (ER) | payer OTHER, SELFPAY ==
[2023-10-28 11:13] VITALS: BP 120/57
[2023-10-28 11:48] VITALS: BMI 38.2
[2023-10-28] MEDS: NSS 500 IV (12:26)
--- NOTE | 2023-10-28 12:39 | ED.GENMED ---
History of Present Illness
General
Chief Complaint: Weakness
Time Seen by Provider: 10/28/23 11:26
History of Present Illness
History of Present Illness:
68-year-old female with history of COPD, history of sarcoidosis status post renal transplant on tacrolimus and daily steroids, hypertension presenting to the emergency department for generalized weakness and fatigue. Patient reports symptoms for
the past few days. Notes that she has been feeling short of breath as well, however denies any significant cough. She has been having some mucus production. Denies known sick contacts. Denies abdominal pain or GI symptoms. Denies chest pain.
She is concerned for kidney and dehydration, follows with [facility]. She is not oxygen dependent at home. She denies any urinary complaints. She denies additional acute medical complaints
Past History
Past History
ED Past Medical History: Asthma, COPD, Fibromyalgia, HTN, Hypercholesterolemia, Renal failure (Status post renal transplant May 2018 right kidney), Psychiatric (Anxiety) and Other (Sarcoidosis); Negative CAD
ED Past Surgical History: Cholecystectomy and Urological (Bilateral Kidney transplants)
Social History
Tobacco: Former smoker
Alcohol: Occasional
Drug: Marijuana
Personal:
Living: with family
Employment: Employed
Family History
Family History: Hypertension, Cancer (Mother had breast cancer) and Other (Son has sarcoidosis)
Phy Exam
Physical Exam
Physical Exam:
General: Well-appearing, no clinical signs of dehydration, nontoxic and in no acute distress
HEENT: protecting airway
Neck: appears supple
CV: Normal heart rate, regular rhythm, no evidence of cyanosis
Resp: No accessory muscle use, no increased work of breathing, scant wheezing in the bases
Abd: Soft and non-distended, no tenderness to palpation, normal bowel sounds
Extremities: No deformities, no swelling, no erythema, pulses and sensation intact
Neuro: alert, no focal neurologic deficit
: deferred
Rectal: deferred
Psych: Normal affect
Skin: Intact
Course
Orders/Labs/Results
Orders:
Orders
10/28/23 11:17
EKG [Electrocardiogram (*1)] Urgent
Reason for Study: Chest Pain
EKG- Treatment ONCE
10/28/23 12:23
0.9% Sodium Chloride 500 ml [Nss] 500 ml IV BOLUS
10/28/23 12:27
COVID-19 Antigen Urgent
Source: Nasal Swab
Complete Blood Count/With Diff Urgent
Comprehensive Metabolic Panel Urgent
Urinalysis Reflex To Culture Urgent
Date Specimen was Collected: 10/28/23
Time Specimen was Collected: 12:25
Influenza A+B Rapid Molecular Urgent
MATT Source: Nasal Swab
Specimen Description:
Abnormal Lab Results
10/28/23
12:27
Abs Immat Gran (auto) 0.1 H 10^3/uL
(0-0.05)
Absolute Lymphs (auto) 0.4 L 10^3/uL
(1.2-3.4)
Absolute Monos (auto) 0.8 H 10^3/uL
(0.1-0.6)
Immature Gran % 0.7 H %
(0-0.5)
Neutrophils % 76.3 H %
(42.2-75.2)
Lymphocytes % 6.1 L %
(20.5-51.1)
Monocytes % 11.1 H %
(1.7-9.3)
Sodium 134 L mmol/L
(135-145)
BUN 36 H mg/dl
(7-17)
Creatinine 2.5 H mg/dL
(0.6-1.0)
Glucose 149 H mg/dl
(70-99)
Total Protein 5.8 L g/dl
(6.3-8.2)
10/28/23 12:27
10/28/23 12:27
Vital Signs
Initial and Last Documented VS:
Initial Vital Signs
Temp Pulse Resp BP Pulse Ox
99.1 F 56 16 120/57 93
10/28/23 11:13 10/28/23 11:13 10/28/23 11:13 10/28/23 11:13 10/28/23 11:13
Last Documented Vital Signs
Temp Pulse Resp BP Pulse Ox
99.1 F 56 23 120/57 95
10/28/23 11:13 10/28/23 12:15 10/28/23 12:15 10/28/23 11:13 10/28/23 15:00
MDM/Problems Addressed
MDM/Problems Addressed:
68-year-old female with history of COPD and sarcoidosis status post renal transplant 5 years ago presenting for generalized fatigue and weakness. Vital signs are normal.
On exam, patient resting comfortably, no acute distress. Patient is nontoxic in appearance. Benign cardiac and pulmonary exam. Scant wheezing to the bases. Patient declining any DuoNebs at this time. She is on supplemental oxygen for comfort,
however no hypoxia. Regarding patient's generalized fatigue and weakness, patient does have some upper respiratory symptoms. Possible viral syndrome, COVID versus influenza. Will swab. Patient is concerned for dehydration and her renal function
given her renal transplant. Will check kidney function start patient IV fluids. No focal neurologic deficits or concern for central neurologic process. Will also check urinalysis to ensure no UTI. EKG obtained, nonischemic without change from
prior, patient without chest pain, without concern for cardiac pathology.
15:00 -patient's labs relatively unremarkable. Patient's creatinine is at baseline. COVID and flu is negative. On reassessment, patient's oxygen did drop while sleeping, however upon ambulation, no desaturation. Lung exam remains stable.
Patient continues to report that she feels tired and fatigued, otherwise feel stable for discharge home. Suspect component of sleep apnea. Patient notes that she has been encouraged to get a sleep study in the past. She reports that she will make
an appointment with her coil tester. Advised continued usage of her nebulizer treatments as needed. Continue to suspect viral syndrome, advised continued supportive therapy and fluids as needed. Strict return precautions communicated patient
verbalized understanding
*EKG
Interpreted by ED Provider?: Yes
EKG Intrepretation Date: 10/28/23
EKG Intrepretation Time: 12:45
Interpretation: normal
Comparison EKG: no changes (08/15/23)
Heart Rate: 54
Rate: bradycardiac
Rhythm: sinus
[place]: normal axis
Interval: normal interval
QRS Pattern: normal QRS
Ischemia: no ischemia
*Critical Care Note
Total Time (30-74mins, 75-104mins- exclusive of procedures): Not Applicable
ED Attending Note
-
Portions of this chart may have been created with voice recognition software.� Occasional wrong word or��sound alike� substitutions may have occurred due to the inherent limitations of voice recognition software.
Discharge Plan
Departure
Prescriptions:
No Action
montelukast 10 MG tablet
10 mg PO HS
escitalopram oxalate 20 MG tablet
20 mg PO HS
oxycodone 5 mg tablet
10 mg PO HS
Patient Comments:
02/09/2022: last filled 01/27/22, 120 tabs for 30 days from [facility]
Nexlizet 180-10 mg Tablet
1 tab PO DAILY
Breztri Aerosphere 160-9-4.8 mcg/actuation HFA aerosol inhaler
2 inh INHALATION R BID
oxycodone 5 mg Tablet
5 mg PO BID
calcium carbonate [Calcium 600] 600 mg calcium (1,500 mg) Tablet
600 mg PO DAILY
albuterol sulfate 90 mcg/actuation HFA aerosol inhaler
2 puff INHALATION R Q4HPRN PRN (Reason: SOB)
cholecalciferol (vitamin D3) [Vitamin D3] 25 mcg (1,000 unit) Tablet
1,000 unit PO DAILY
gabapentin [Neurontin] 300 mg Capsule
300 mg PO TID
Rx Instructions:
dose increased
levocetirizine [24HR Allergy Relief] 5 mg Tablet
5 mg PO DAILYPRN PRN (Reason: allergies)
nifedipine 60 mg Tablet Extended Release 24hr
60 mg PO DAILY
prednisone 10 mg tablet
10 mg PO DAILY
carvedilol 3.125 mg tablet
6.25 mg PO BID
insulin glargine [Lantus Solostar U-100 Insulin] 100 unit/mL (3 mL) insulin pen
15 unit SC HS
aripiprazole 10 MG tablet
10 mg PO HS
insulin aspart U-100 [Novolog FlexPen U-100 Insulin] 100 unit/mL (3 mL) insulin pen
8 unit SC AC
tacrolimus [Prograf] 1 mg Capsule
2 mg PO Q12H
Referrals:
Brenda Braga PA-C [Family Provider] -
Interventions
Interventions:
*Risk Screen - Suicide Last Done: 10/28/23 11:13
*General Assessment Last Done: 10/28/23 11:13
*Neglect/Abuse Screening Last Done: 10/28/23 11:13
ED- Cardiac Assessment Last Done: 10/28/23 11:49
ED- Neurological Assessment Last Done: 10/28/23 11:49
ED- Pulmonary Assessment Last Done: 10/28/23 11:49
Discharge Date and Time
Print Language: SLOVAK
[2023-10-28 12:41] LABS: % Basophils 0.7 % (0-2); % Eosinophils 5.1 % (0-6); % Immature Granulocytes 0.7 % (0-0.5); % Lymphocytes 6.1 % (20.5-51.1); % Monocytes 11.1 % (1.7-9.3); % Neutrophils 76.3 % (42.2-75.2); Absolute Basophils 0.1 10^3/uL (0-0.2); Absolute Eosinophils 0.4 10^3/uL (0-0.7); Absolute Immature Granulocytes 0.1 10^3/uL (0-0.05); Absolute Lymphocytes 0.4 10^3/uL (1.2-3.4); Absolute Monocytes 0.8 10^3/uL (0.1-0.6); Absolute Neutrophils 5.2 10^3/uL (1.4-6.5); Hematocrit 38.1 % (37.0-47.0); Mean Corp Hgb Conc. 34.1 g/dL (33.0-37.0); Mean Corpuscular Hgb 29.5 pg (27.0-31.0); Mean Corpuscular Volume 86.6 fL (81.0-99.0); Mean Platelet Volume 10.1 fL (7.4-10.4); Nucleated Red Blood Cells % 0 %; Platelet Count 216 10^3/uL (130-400); White Blood Cell Count 6.9 10^3/uL (4.8-10.8)
[2023-10-28 12:52] LABS: Urine Albumin Negative (Neg - Trace); Urine Bilirubin Negative (Negative); Urine Character Clear (Clear); Urine Color Yellow; Urine Glucose Negative (Negative); Urine Ketone Negative (Negative); Urine Leukocyte Negative (Negative); Urine Nitrite Negative (Negative); Urine Occult Blood Negative (Negative); Urine Specific Gravity 1.015 (<1.030); Urine Urobilinogen Negative (Neg - 1+)
[2023-10-28 12:53] LABS: ALT (SGPT) 12 U/L (0-35); AST (SGOT) 16 U/L (14-36); Albumin 3.6 g/dl (3.5-5.0); Alkaline Phosphatase 91 U/L (38-126); Blood Urea Nitrogen 36 mg/dl (7-17); Calcium 9.3 mg/dl (8.4-10.2); Carbon Dioxide 25 mmol/L (22-30); Chloride 102 mmol/L (98-107); Estimated Creatinine Clearance 26 ml/min; Glucose 149 mg/dl (70-99); Potassium 4.6 mmol/L (3.5-5.1); Sodium 134 mmol/L (135-145); Total Bilirubin 0.5 mg/dl (0.2-1.3); Total Protein 5.8 g/dl (6.3-8.2); eGFR 20.56
[2023-10-28 13:18] LABS: COVID-19 Antigen Negative (Negative)
== END 2023-10-28 15:53 | disposition home or self-care (01) ==
LOC: EMR 11:08
PROVIDERS: EMERGENCY PHYSICIAN Student in an Organized Health Care Education/Training Program; FAMILY PHYSICIAN Physician Assistant
DX: B34.9 Viral infection, unspecified (principal); R53.83 Other fatigue; I10 Essential (primary) hypertension; J44.9 Chronic obstructive pulmonary disease, unspecified
CPT/HCPCS: 99284; 96360; 80053; 81003; 85025; 87502; 87811; 93005

== ENCOUNTER → 2023-12-21 16:44 | Outpatient (REF) | payer OTHER, SELFPAY | LOC: MRI 16:44 | PROVIDERS: ATTENDING PHYSICIAN Physician Assistant Surgical; FAMILY PHYSICIAN Physician Assistant | DX: M47.14 Other spondylosis with myelopathy, thoracic region (principal) | CPT/HCPCS: 72146 ==

== ENCOUNTER → 2024-02-14 16:32 | Outpatient (REF) | payer OTHER, SELFPAY | LOC: RAD 16:32 | PROVIDERS: ATTENDING PHYSICIAN Internal Medicine | DX: J96.01 Acute respiratory failure with hypoxia (principal); R05.8 Other specified cough | CPT/HCPCS: 71046 ==

== ENCOUNTER → 2024-02-20 14:44 | Outpatient (REF) | payer OTHER, SELFPAY | LOC: HWRAD 14:44 | PROVIDERS: ATTENDING PHYSICIAN Internal Medicine Critical Care Medicine; FAMILY PHYSICIAN Physician Assistant | DX: J44.1 Chronic obstructive pulmonary disease with (acute) exacerbation (principal) | CPT/HCPCS: 71250 ==

== ENCOUNTER → 2024-04-05 13:41 | Outpatient (REF) | payer OTHER, SELFPAY | LOC: HWRAD 13:41 | PROVIDERS: ATTENDING PHYSICIAN Internal Medicine Critical Care Medicine; FAMILY PHYSICIAN Physician Assistant; REFERRING PHYSICIAN Physician Assistant | DX: R06.02 Shortness of breath (principal); R60.9 Edema, unspecified; R91.8 Other nonspecific abnormal finding of lung field | CPT/HCPCS: 71250; 93306 ==

== ENCOUNTER 2024-06-12 16:16 | Inpatient (IN) | payer OTHER, SELFPAY ==
[2024-06-12 11:40] VITALS: BP 149/64
[2024-06-12 12:05] LABS: Urine Albumin Negative (Neg - Trace); Urine Bilirubin Negative (Negative); Urine Character Clear (Clear); Urine Color Yellow; Urine Glucose Negative (Negative); Urine Ketone Negative (Negative); Urine Leukocyte Negative (Negative); Urine Nitrite Negative (Negative); Urine Occult Blood 2+ (Negative); Urine Urobilinogen Negative (Neg - 1+)
[2024-06-12 12:06] LABS: % Basophils 0.5 % (0-2); % Eosinophils 1.4 % (0-6); % Immature Granulocytes 1.9 % (0-0.5); % Lymphocytes 6.5 % (20.5-51.1); % Monocytes 7.3 % (1.7-9.3); % Neutrophils 82.4 % (42.2-75.2); Absolute Basophils 0.1 10^3/uL (0-0.2); Absolute Eosinophils 0.2 10^3/uL (0-0.7); Absolute Immature Granulocytes 0.2 10^3/uL (0-0.05); Absolute Lymphocytes 0.8 10^3/uL (1.2-3.4); Absolute Monocytes 0.9 10^3/uL (0.1-0.6); Absolute Neutrophils 9.7 10^3/uL (1.4-6.5); Hematocrit 43.7 % (37.0-47.0); Hemoglobin 13.9 g/dL (12.0-16.0); Mean Corp Hgb Conc. 31.8 g/dL (33.0-37.0); Mean Corpuscular Hgb 30.2 pg (27.0-31.0); Mean Platelet Volume 9.8 fL (7.4-10.4); Nucleated Red Blood Cells % 0 %; Platelet Count 229 10^3/uL (130-400); Red Cell Dist. Width 14.4 % (11.5-14.5); White Blood Cell Count 11.8 10^3/uL (4.8-10.8)
[2024-06-12 12:15] LABS: Urine Squamous Cell >30 /LPF (Few)
[2024-06-12 12:17] LABS: Urine Red Blood Cell 0-2 /HPF (0-2)
[2024-06-12 12:18] LABS: Urine Bacteria Few (Negative)
[2024-06-12 12:28] LABS: ALT (SGPT) 16 U/L (0-35); AST (SGOT) 18 U/L (14-36); Alkaline Phosphatase 88 U/L (38-126); Blood Urea Nitrogen 37 mg/dl (7-17); Calcium 9.1 mg/dl (8.4-10.2); Carbon Dioxide 29 mmol/L (22-30); Chloride 100 mmol/L (98-107); Glucose 175 mg/dl (70-99); Potassium 4.3 mmol/L (3.5-5.1); Sodium 138 mmol/L (135-145); Total Bilirubin 0.8 mg/dl (0.2-1.3); Total Protein 6.6 g/dl (6.3-8.2)
[2024-06-12 14:09] VITALS: BP 134/63
--- NOTE | 2024-06-12 15:16 | ED.GENMED ---
History of Present Illness
General
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
Time Seen by Provider: 06/12/24 14:58
History of Present Illness
History of Present Illness:
68-year-old female presents to the emergency department for evaluation of suspected bright red blood per rectum. She had 2 episodes of significant amount of blood in the toilet bowl, she was uncertain if it was urine or stool but did have bowel
movements with both. Urinalysis provided on arrival was not grossly bloody. Denies any abdominal pain but does report dizziness and lightheadedness. Went to her primary care physician's office prior to arrival where she was noted to be
hypotensive and thus sent to the ED. History of kidney transplant 2018, she is not on any anticoagulants
Past History
Past History
ED Past Medical History: Asthma, COPD, Fibromyalgia, HTN, Hypercholesterolemia, Renal failure (Status post renal transplant May 2018 right kidney), Psychiatric (Anxiety) and Other (Sarcoidosis); Negative CAD
ED Past Surgical History: Cholecystectomy and Urological (Bilateral Kidney transplants)
Social History
Tobacco: Former smoker
Alcohol: Occasional
Drug: Marijuana
Personal:
Living: with family
Employment: Employed
Family History
Family History: Hypertension, Cancer (Mother had breast cancer) and Other (Son has sarcoidosis)
Review of Systems
Review of Systems
Allergies reviewed?: Yes
All Other Systems: ROS reviewed and negative except as documented in HPI and ROS
Phy Exam
Physical Exam
Physical Exam:
GEN: Well appearing, NAD, WDWN
HEENT: Oral mucosa moist, no scleral icterus
Cardiac: Regular rate
Lung: No respiratory distress, no tachypnea
Abdomen: Soft, grossly nontender
Rectal: Brown stool in the rectal vault, heme positive
: Vaginal exam negative for blood
MSK: No gross deformity or injuries
Skin: Good color, no pallor or jaundice, no rashes
Neuro: AO x3, moves all extremities freely
Psych: Calm, cooperative
Course
Orders/Labs/Results
Orders:
Orders
06/12/24 11:56
Complete Blood Count/With Diff Urgent
Comprehensive Metabolic Panel Urgent
Urinalysis Reflex To Culture Urgent
Date Specimen was Collected: 06/12/24
Time Specimen was Collected: 11:45
Urine Microscopic Reflex Cult Urgent
06/12/24 15:50
Type+Screen Urgent
06/12/24 16:03
Admit/Transfer Patient As Directed
Co-Sign Provider:
Level of Care: Inpatient admission
Assign to:: Medical/Surgical
Physician / Group: tammi hernadez
Diagnosis: GI bleed
Reason for Hospitalization: GI bleed
Expected length of stay greater than two midnights?: Yes
ELOS- Estimated Length of Stay in days: 3
I certify the patient meets the requirements for IP care: Yes
PRN Pain Medication Management As Directed
May give lesser potent ordered pain med per pt: Yes
preference::
Protocol:: Medication orders for pain may be administered in a
manner that supports deferring to patient preference
when the pt is:
- Requesting an ordered lesser potent pain medication.
Least to most potent pain medications are defined
as: acetaminophen < NSAID < tramadol < opioids
(morphine, oxycodone, hydromorphone).
- Requesting a lesser dose of the same medication IF
ORDERED.
- Requesting a less intrusive route of administration
if both routes are prescribed by the provider (PO <
IV).
06/12/24 16:04
Code Status As Directed
Resuscitation Status: Full Code
06/12/24 16:08
Tacrolimus (Prograft - FK506) [S] Routine
Abnormal Lab Results
06/12/24
11:56
WBC 11.8 H 10^3/uL
(4.8-10.8)
MCHC 31.8 L g/dL
(33.0-37.0)
Abs Immat Gran (auto) 0.2 H 10^3/uL
(0-0.05)
Absolute Neuts (auto) 9.7 H 10^3/uL
(1.4-6.5)
Absolute Lymphs (auto) 0.8 L 10^3/uL
(1.2-3.4)
Absolute Monos (auto) 0.9 H 10^3/uL
(0.1-0.6)
Immature Gran % 1.9 H %
(0-0.5)
Neutrophils % 82.4 H %
(42.2-75.2)
Lymphocytes % 6.5 L %
(20.5-51.1)
BUN 37 H mg/dl
(7-17)
Creatinine 2.4 H mg/dL
(0.6-1.0)
Glucose 175 H mg/dl
(70-99)
Ur Occult Blood Reflex 2+ A
(Negative)
Urine Bacteria (Reflex) Few A
(Negative)
06/12/24 11:56
06/12/24 11:56
Vital Signs
Initial and Last Documented VS:
Initial Vital Signs
Temp Pulse Resp BP Pulse Ox
97.5 F 54 20 149/64 97
06/12/24 11:40 06/12/24 11:40 06/12/24 11:40 06/12/24 11:40 06/12/24 11:40
Last Documented Vital Signs
Temp Pulse Resp BP Pulse Ox
97.5 F 52 18 134/63 95
06/12/24 11:40 06/12/24 14:09 06/12/24 14:09 06/12/24 14:09 06/12/24 14:09
MDM/Problems Addressed
MDM/Problems Addressed:
Although she is stable, given her advanced age and reported voluminous hematochezia will admit for further observation
*Critical Care Note
Total Time (30-74mins, 75-104mins- exclusive of procedures): Not Applicable
ED Attending Note
-
Portions of this chart may have been created with voice recognition software.� Occasional wrong word or��sound alike� substitutions may have occurred due to the inherent limitations of voice recognition software.
Discharge Plan
Departure
Patient Disposition: Admit
Date of Disposition: 06/12/24
Time of Disposition: 15:18
Admit to: Med/Surg
Presentation/result/management discussed w/ accepting MD/DO: Hospitalist
Discharge Problem:
Bright red blood per rectum
Interventions
Interventions:
*Risk Screen - Suicide Last Done: 06/12/24 11:40
*General Assessment Last Done: 06/12/24 11:40
*Neglect/Abuse Screening Last Done: 06/12/24 11:40
--- NOTE | 2024-06-12 15:46 | HPS.HSE ---
Family Physician
-
Family Physician:
Chief Complaint
-
rectal bleed
History of Present Illness
68-year-old female with PMH for CKD, type 2 diabetes, anxiety, depression, fibromyalgia, kidney transplant, asthma, chronic pain syndrome, COPD presented to us with p She had 2 episodes of significant amount of blood in the toilet bowl twice this
morning with bowel movement. Patient denied any abdominal pain but does report dizziness and lightheadedness.patient denied any headache, fever, chills, chest pain, short of breath. Patient denied dysuria hematuria. Her colonoscopy was 5 years
ago. Denied any NSAID use. Patient ate home-cooked turkey chilly last night history of kidney transplant 2018, she is not on any anticoagulants
Patient has a stable hemoglobin. Admitting for further management
Medical History
Past Medical History
Past Medical History: Reports Other
Additional Past Medical History:
Type 2 diabetes
Depression
Fibromyalgia
End-stage renal disease
Oma's syndrome
Hypertension
Hyperlipidemia
Asthma
Chronic pain syndrome
COPD
Cervical radiculopathy
Acute hypoxic respiratory failure
Pulmonary sarcoidosis
Past Surgical History: Reports Other
Additional Past Surgical History:
Kidneys transplant
Lap cholecystectomy
Tonsillectomy
Uterine biopsy
2 fistulous
Back surgery
Partial hip replacement
Squamous cell removed on chest
Social History
Tobacco: Non-smoker
Alcohol: None
Drug: None
Personal:
Family History
Family History: Not pertinent
Allergies / Home Medications
Allergies reflects when Allergies were last updated in [facility].
Home Medications with original date entered in [facility]
Allergy/Medication List:
Allergies
Allergy/AdvReac Type Severity Reaction Status Date / Time
bee venom protein (honey bee) Allergy Severe Anaphylaxis Verified 06/12/24 11:45
duloxetine [From Cymbalta] Allergy Intermediate tardive Verified 06/12/24 11:45
dyskinesia
cephalexin monohydrate Allergy abdominal Verified 06/12/24 11:45
[From Keflex] pain;
tolerated
Cefepime
cimetidine Allergy Anaphylaxis Verified 06/12/24 11:45
latex [Latex] Allergy Hives Verified 06/12/24 11:45
Latex, Natural Rubber Allergy Rash Verified 06/12/24 11:45
morphine Allergy 'MAKES ME Verified 06/12/24 11:45
MEAN'
omeprazole Allergy Anaphylaxis Verified 06/12/24 11:45
oxycodone HCl Allergy 'itching Verified 06/12/24 11:45
[From OxyContin] like I'm
crawling
out of my
skin'
Penicillins Allergy Hives Verified 06/12/24 11:45
Sulfa (Sulfonamide Allergy abdominal Verified 06/12/24 11:45
Antibiotics) pain
Tricyclic Antidepressants Allergy V. TACH Verified 06/12/24 11:45
and Tricy
[Tricyclic Compounds]
Home Medications
escitalopram oxalate 20 mg tablet 20 mg PO HS Depression 06/12/19
montelukast 10 mg tablet 10 mg PO HS Allergies 06/12/19
bempedoic acid 180 mg-ezetimibe 10 mg tablet (Nexlizet) 1 tab PO DAILY High cholesterol 02/09/22
budesonide 160 mcg-glycopyr 9 mcg-formot 4.8 mcg/actuation HFA inhaler (Breztri Aerosphere) 2 inh inhalation R BID Lung/breathing issues 02/09/22
oxycodone 5 mg tablet 10 mg PO HS Pain 02/09/22
oxycodone 5 mg tablet 5 mg PO BIDPRN PRN severe pain 04/06/22
gabapentin 300 mg capsule (Neurontin) 300 mg PO HS 04/24/23
aripiprazole 10 mg tablet 10 mg PO HS Mental Health/Anxiety 08/15/23
nifedipine 60 mg tablet,extended release 24 hr 60 mg PO DAILY Blood Pressure 08/15/23
prednisone 10 mg tablet 10 mg PO DAILY Anti-Inflammatory 08/15/23
carvedilol 25 mg tablet (Coreg) 25 mg PO BID 06/12/24
furosemide 20 mg tablet (Lasix) 40 mg PO DAILY 06/12/24
gabapentin 300 mg capsule 300 mg PO DAILYPRN PRN nereve pains 06/12/24
semaglutide 1 mg/dose (4 mg/3 mL) subcutaneous pen injector (Ozempic) 1 mg SC MO 06/12/24
tacrolimus 0.5 mg capsule, immediate-release (Prograf) 0.5 mg PO Q12H 06/12/24
Review of Systems
-
Constitutional: Reports No Symptoms
EENT: Reports No Symptoms
Respiratory: Reports No Symptoms
Cardiac: Reports No Symptoms
Abdomen/GI: Reports Bloody Stools
: Reports No Symptoms
Musculoskeletal: Reports No Symptoms
Skin: Reports No Symptoms
Neurological: Reports No Symptoms
Endocrine: Reports No Symptoms
Hematologic/Lymphatic: Reports No Symptoms
Psych: Reports No Symptoms
Physical Exam
Vital Signs
Vital Signs
Temp Pulse Resp BP Pulse Ox
97.5 F 52 18 134/63 95
06/12/24 11:40 06/12/24 14:09 06/12/24 14:09 06/12/24 14:09 06/12/24 14:09
Physical Exam
General: Well Developed, Well Nourished and No Apparent Distress
HEENT: NormoCephalic, Moist mucous membranes and Atraumatic
Respiratory: Clear
Cardiac: S1/S2 and Regular Rhythm; No Murmur or Rub
GI: Soft, Non Tender, Non Distended and Normal Bowel Sounds; No Organomegaly
Rectal: Deferred by Provider
Musculoskeletal: No Clubbing, No Cyanosis and No Edema
Skin: No Rash
Neuro: AO x 3 and Nonfocal/grossly intact
Psych: Calm
Laboratory Results
-
06/12/24 11:56
06/12/24 11:56
Laboratory Results
Total Bilirubin 0.8 mg/dl (0.2-1.3) 06/12/24 11:56
AST 18 U/L (14-36) 06/12/24 11:56
ALT 16 U/L (0-35) 06/12/24 11:56
Alkaline Phosphatase 88 U/L (38-126) 06/12/24 11:56
Data Reviewed
-
Lab Data: Labs Reviewed by me
Impression/Plan
-
# GI bleed
-Hemoglobin stable at 13.0
-Clear liquid diet
-IV PPI
-GI consult
# Leukocytosis likely stress reaction
-WBCs 11.8, patient is afebrile
-Continue to monitor
# Chronic kidney disease stage IIIb
-Creatinine 2.4
-Status post renal transplant
Continue immunosuppression prednisone/tacrolimus
-Nephrology consulted
#COPD.
Without exacerbation. No bronchospasm on exam.
Not on O2 supplementation at home.
Nebs from home continued
Singular continued
#IDDM.
Continue basal bolus protocol.
Carbohydrate controlled diet.
Hold Ozempic
#Essential hypertension
Continue nifedipine and Coreg monitor for hypotension
# Hyperlipidemia
-nexilzet continued
#Chronic pain syndrome/fibromyalgia/opioid dependence
Continue oxycodone gabapentin.
# Anxiety
-Abilify continued
-Citalopram continued
DVT prophylaxis SCDs
Full code
--- NOTE | 2024-06-12 16:10 | W.PN.UPDATE ---
Update Note
Progress Note Update
This note serves as an addendum to the H&P by international nurse JASSON Echo WORTHY
HPI
68M diabetic and Immunosuppressed KTP patient since 2019, currently CKD4, HTN, COPD, Anxiety and sarcoidosis seen at ER;
- evaluation of suspected bright red blood per rectum
- 2 episodes of significant amount of blood in the toilet bow but uncertain if it was urine or stool
- Urinalysis provided on arrival was not grossly bloody.
- dizziness and lightheadedness
- Not on thinners
- Went to her primary care physician's office prior to arrival where she was noted to be hypotensive and sent to the ED.
ROS:
Denies any abdominal pain
Reviewed VS: stable VSS
PE
Gen: obese , NAD, not toxic
HEENT: anicteric
Neck: supple
Lungs: CTA
Cor: RRR
Abdomen: soft benign
SIGN ERECTOR AND REPAIRER: AAO3
MS: no edema
Psych: n mood and affect
Data
WCC 11.8
Hgb 13.9
Cr 2.4 - baseline 2-2.5
eGFR 21 - baseline is hi 20s
Last hospitalist admission:
DATE OF ADMISSION: 08/15/2023 - DATE OF DISCHARGE: 08/18/2023
DISCHARGE DIAGNOSES:
1. Self-limited episode of fever.
2. Exertional dyspnea with acute hypoxic respiratory insufficiency, improved.
3. Initial concern for sepsis and pneumonia ruled out.
ASSESSMENT & PLAN
Acute painless bright red blood per rectum; norma LGI origin ( Hemorrhioids, diverticulosis, angioectasia)
Hgb stable
- T & S
- Clear and IVF
- Trend Hgb
- GI consult
SIMBA element
CKD4 at baseline
Immunosuppressed KTP patient
- Hold Frusemide
- Tacrolimis level nd c/w ROSIN BARREL FILLER Prednisone, Tacrolimus
Benign HTN
- Normotensive
- c/w ROSIN BARREL FILLER Nifedipine
Depression: stable
- c/w ROSIN BARREL FILLER Escitalopram and Gabapentin
DVT Px: SCDs
Code: Full
IP MS
--- NOTE | 2024-06-12 17:01 | W.CON.NEPH ---
Consultation
-
Date/Time Consultation Requested: 06/12/2024 4 PM
Date/Time Consultation Performed: 06/12/2024 5 PM
Requesting Provider: Dr. Xie
Performing Provider: Dr. Mayfield
Reason for Consultation: Renal transplant, CKD 4
Medical History
-
Chief Complaint: Bright red blood per rectum
History of Present Illness:
This is a 68-year-old female who is well-known to me for her living unrelated renal transplant 2018 as well as CKD 4. Her current immunosuppressive regimen includes tacrolimus and prednisone only. She had been on Myfortic though this was
discontinued due to BK viremia. There is still hope for eventual return to Myfortic depending on her BK virus loads. She does have sarcoidosis which thus far has been in remission. She is on Ozempic with current dosing at 1 mg/week which was
increased just last week. I had seen her in the office June 05 and I also increased her Lasix from 20 mg daily to 40 mg daily for lower extremity edema. This did help. She reports that today she had 2 bowel movements and when she looked in
the bowl it was bloody like Terry-Aid. No clots were noted. She denies any pain. She then had some lightheadedness and for this had come to the emergency room for evaluation.
Past Medical History
Hyperlipidemia, sarcoidosis, hypertension, depression, CKD 4, living unrelated renal transplant, COPD, anxiety
Lab cholecystectomy, section, laparoscopies, tonsillectomy, AV fistula x 2 bilateral arms failed, back surgery, partial hip replacement, squamous cell cancer removal
Social History
Tobacco: Former Smoker
Alcohol: None
Family History
Family History: Not Pertinent
Allergies / Home Medications
Allergy/AdvReac Type Severity Reaction Status Date / Time
bee venom protein (honey bee) Allergy Severe Anaphylaxis Verified 06/12/24 11:45
duloxetine [From Cymbalta] Allergy Intermediate tardive Verified 06/12/24 11:45
dyskinesia
cephalexin monohydrate Allergy abdominal Verified 06/12/24 11:45
[From Keflex] pain;
tolerated
Cefepime
cimetidine Allergy Anaphylaxis Verified 06/12/24 11:45
latex [Latex] Allergy Hives Verified 06/12/24 11:45
Latex, Natural Rubber Allergy Rash Verified 06/12/24 11:45
morphine Allergy 'MAKES ME Verified 06/12/24 11:45
MEAN'
omeprazole Allergy Anaphylaxis Verified 06/12/24 11:45
oxycodone HCl Allergy 'itching Verified 06/12/24 11:45
[From OxyContin] like I'm
crawling
out of my
skin'
Penicillins Allergy Hives Verified 06/12/24 11:45
Sulfa (Sulfonamide Allergy abdominal Verified 06/12/24 11:45
Antibiotics) pain
Tricyclic Antidepressants Allergy V. TACH Verified 06/12/24 11:45
and Tricy
[Tricyclic Compounds]
�Medication �Instructions �Recorded �Confirmed �Type
escitalopram oxalate 20 mg tablet 20 mg PO HS Depression 06/12/19 06/12/24 History
montelukast 10 mg tablet 10 mg PO HS Allergies 06/12/19 06/12/24 History
bempedoic acid 180 mg-ezetimibe 10 1 tab PO DAILY High cholesterol 02/09/22 06/12/24 History
mg tablet (Nexlizet)
budesonide 160 mcg-glycopyr 9 2 inh inhalation R BID 02/09/22 06/12/24 History
mcg-formot 4.8 mcg/actuation HFA Lung/breathing issues
inhaler (Breztri Aerosphere)
oxycodone 5 mg tablet 10 mg PO HS Pain 02/09/22 06/12/24 History
oxycodone 5 mg tablet 5 mg PO BIDPRN PRN severe pain 04/06/22 06/12/24 History
gabapentin 300 mg capsule 300 mg PO HS 04/24/23 06/12/24 History
(Neurontin)
aripiprazole 10 mg tablet 10 mg PO HS Mental Health/Anxiety 08/15/23 06/12/24 History
nifedipine 60 mg tablet,extended 60 mg PO DAILY Blood Pressure 08/15/23 06/12/24 History
release 24 hr
prednisone 10 mg tablet 10 mg PO DAILY Anti-Inflammatory 08/15/23 06/12/24 History
carvedilol 25 mg tablet (Coreg) 25 mg PO BID 06/12/24 06/12/24 History
furosemide 20 mg tablet (Lasix) 40 mg PO DAILY 06/12/24 06/12/24 History
gabapentin 300 mg capsule 300 mg PO DAILYPRN PRN nereve pains 06/12/24 06/12/24 History
semaglutide 1 mg/dose (4 mg/3 mL) 1 mg SC MO 06/12/24 06/12/24 History
subcutaneous pen injector (Ozempic)
tacrolimus 0.5 mg capsule, 0.5 mg PO Q12H 06/12/24 06/12/24 History
immediate-release (Prograf)
Review of Systems
-
No chest pain or shortness of breath. No abdominal pain. No issues urination. No nausea or vomiting.
All other systems: Negative unless noted
Physical Exam
Vital Signs
Vital Signs
Temp Pulse Resp BP Pulse Ox
97.5 F 52 18 134/63 95
06/12/24 11:40 06/12/24 14:09 06/12/24 14:09 06/12/24 14:09 06/12/24 14:09
Lab Results
WBC 11.8 10^3/uL (4.8-10.8) H 06/12/24 11:56
RBC 4.60 10^6/uL (4.20-5.40) 06/12/24 11:56
Hgb 13.9 g/dL (12.0-16.0) 06/12/24 11:56
Hct 43.7 % (37.0-47.0) 06/12/24 11:56
Plt Count 229 10^3/uL (130-400) 06/12/24 11:56
Sodium 138 mmol/L (135-145) 06/12/24 11:56
Potassium 4.3 mmol/L (3.5-5.1) 06/12/24 11:56
Chloride 100 mmol/L (98-107) 06/12/24 11:56
Carbon Dioxide 29 mmol/L (22-30) 06/12/24 11:56
BUN 37 mg/dl (7-17) H 06/12/24 11:56
Creatinine 2.4 mg/dL (0.6-1.0) H 06/12/24 11:56
eGFR 21.60 06/12/24 11:56
Glucose 175 mg/dl (70-99) H 06/12/24 11:56
Calcium 9.1 mg/dl (8.4-10.2) 06/12/24 11:56
Albumin 4.0 g/dl (3.5-5.0) 06/12/24 11:56
Laboratory values 05/11/2024 tacrolimus 4.4, creatinine 2.23
Physical Exam
Patient is awake alert oriented and in no distress. Mood and affect were pleasant, insight and judgment were good. Pupils are equal round and reactive to light, extraocular movements are intact, sclera were anicteric. Hearing was normal, ears and
nose are intact. Oropharynx was clear. Neck was supple with trachea midline and no thyromegaly. Heart was regular rate and rhythm without rubs. Lower extremities without edema. Lungs were clear to auscultation bilaterally and with normal
excursion. Abdomen was soft, nontender, with normal active bowel sounds, and no hepatosplenomegaly. Skin was without rash and with normal turgor.
Data Reviewed
-
CT Scan: Report Reviewed by me (CT chest 04/05/2024 Multi lobar subpleural consolidation, multiple granulomatous calcifications)
Medical Tests (Nuc Med, Echo etc): Report Reviewed by me (Echocardiogram 04/05/2024 ejection fraction 55% aortic sclerosis)
Labs: Labs Reviewed by me
Old Records: Reviewed
Assessment/Plan
-
Assessment:
Bright red blood per rectum
CKD 4 (bl Cr ~2-2.4)
Living unrelated kidney transplant at [facility] in 2019
HTN
sarcoidosis
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
COPD
Fibromyalgia
HLD
Chronic Pain
Anxiety/Depression
Plan:
Follow hemoglobin
GI evaluation
Follow BMP, creatinine at baseline
Holding Lasix
Continue tacrolimus 0.5 mg twice daily with prednisone 10 mg daily
[2024-06-12 18:15] VITALS: BP 124/60
[2024-06-12] MEDS: PROTONIX IV 40 MG IV (18:33)
[2024-06-12] MEDS: NSS (PRESERVATIVE FREE) 10 ML IV (18:34)
[2024-06-12 18:35] VITALS: BMI 34.0
[2024-06-12 18:39] LABS: Glucose - Point of Care 109 mg/dl (70-99)
[2024-06-12 19:05] VITALS: BP 109/58; BP 117/66; BP 120/63; PULSE 64; PULSE 72; PULSE 73
[2024-06-12] MEDS: SYMBICORT 160/4.5 MCG INHALER 2 PUFF INH (20:27)
[2024-06-12 20:38] LABS: Hematocrit 39.2 % (37.0-47.0); Hemoglobin 12.8 g/dL (12.0-16.0)
[2024-06-12] MEDS: LEXAPRO 20 MG PO (20:43)
[2024-06-12] MEDS: SINGULAIR 10 MG PO (20:43)
[2024-06-12] MEDS: NEURONTIN 300 MG PO (20:43)
[2024-06-12] MEDS: COREG 25 MG PO (20:44)
[2024-06-12] MEDS: PROGRAF 0.5 MG PO (20:45)
[2024-06-12] MEDS: ABILIFY 10 MG PO (20:45)
[2024-06-12] MEDS: ROXICODONE 10 MG PO (20:50)
[2024-06-12 21:26] LABS: Glucose - Point of Care 104 mg/dl (70-99)
[2024-06-12 23:00] VITALS: BP 117/61; BP 132/59; BP 79/54; PULSE 57; PULSE 58; PULSE 68
--- NOTE | 2024-06-13 02:44 | DOWNTIME ---
There was a [employer] Downtime on 06/13/2024 from 0100 to 06/13/2023 at 0235 . Downtime documentation of patient's care, including medication administrations, has been reconciled in the electronic record per guidelines. Refer to the
patient's paper chart under the miscellaneous tab to see printed paper medication records and downtime forms.
[2024-06-13 03:00] VITALS: BP 101/59; BP 130/64; BP 144/70; PULSE 56; PULSE 58; PULSE 64
[2024-06-13 04:32] LABS: Hematocrit 37.9 % (37.0-47.0); Hemoglobin 12.4 g/dL (12.0-16.0); Mean Corp Hgb Conc. 32.7 g/dL (33.0-37.0); Mean Corpuscular Hgb 30.4 pg (27.0-31.0); Mean Corpuscular Volume 92.9 fL (81.0-99.0); Mean Platelet Volume 9.8 fL (7.4-10.4); Platelet Count 190 10^3/uL (130-400); Red Blood Cell Count 4.08 10^6/uL (4.20-5.40); Red Cell Dist. Width 14.1 % (11.5-14.5); White Blood Cell Count 7.9 10^3/uL (4.8-10.8)
[2024-06-13 05:07] LABS: Blood Urea Nitrogen 34 mg/dl (7-17); Calcium 8.9 mg/dl (8.4-10.2); Carbon Dioxide 27 mmol/L (22-30); Chloride 102 mmol/L (98-107); Estimated Creatinine Clearance 28 ml/min; Glucose 85 mg/dl (70-99); Potassium 3.8 mmol/L (3.5-5.1); Sodium 138 mmol/L (135-145); eGFR 25.35
[2024-06-13] MEDS: SPIRIVA RESPIMAT 2.5 MCG 2 PUFF INH (07:26)
[2024-06-13] MEDS: SYMBICORT 160/4.5 MCG INHALER 2 PUFF INH (07:26)
[2024-06-13 07:30] VITALS: BP 146/78
[2024-06-13 07:46] LABS: Glucose - Point of Care 83 mg/dl (70-99)
[2024-06-13] MEDS: PROTONIX IV 40 MG IV (07:52)
[2024-06-13] MEDS: NSS (PRESERVATIVE FREE) 10 ML IV (07:52)
[2024-06-13] MEDS: PROGRAF 0.5 MG PO (07:53)
[2024-06-13] MEDS: DELTASONE 10 MG PO (07:53)
[2024-06-13] MEDS: PROCARDIA XL (EXTENDED RELEASE) 60 MG PO (08:29)
[2024-06-13] MEDS: COREG PO (08:30)
--- NOTE | 2024-06-13 08:52 | CON.GI ---
Addendum entered and electronically signed by Jailene Naranjo Do, MD 06/13/24 14:21:
I personally performed a history and physical exam of the patient and discussed management with the resident. I reviewed the resident's note and agree with the documented findings and plan of care HPI/CC.
Hakeem is a 68yo W with h/o chronic opioid use for fibromyalgia and DM who presents with BRBPR x2. Last week her ozempic was increased. She denies constipation with one BM daily basis. However she does take 14 oxycodone 5mg per week. She
denies AC or chronic nsaid use. No FH of CRC. Vitals stable exam soft obese abdomen NTTP, NABS. Labs reviewed Hbg stable
Impression
- BRBPR x2 in setting of opioid use and recently increased ozempic
Suggestive of hemorrhoidal given stable H/H
- Fibromyalgia
- HL
- s/p renal transplant
- Chronic opioid use
- DM
- Anxiety
- Depression
- Sarcoid
Recommendations
- Adv to regular diet
- Start miralax daily
- Anusol supp x10 days QHS
- Plan for outpatient colonoscopy Monday 06/19 my office will arrange. She will need long 2 day prep slow with Golylte given CKD
Ok from GI perspective for hosp d/c. Above d/w pt and hospitalist team. GI will sign off please call for ?
Original Note:
Consultation
-
Date/Time Consultation Requested: 06/12/2024
Date/Time Consultation Performed: 06/13/2024
Requesting Provider: Echo Cortés CRNP
Performing Provider: Macey Mcdonald MD
Reason for Consultation: GI bleeding
Medical History
Chief Complaint / HPI
Chief Complaint: Bloody bowel movements
History of Present Illness:
The patient is a 68 year old female who presented to ER o 06/12/24 after having 2 episodes of significant amount of bright-red colored blood in the toilet bowl for 2 times. The patient is not sure if she had this blood with her urine or stool and
she did not see any clots in. But, she believes it is likely from her rectal area. Denies any similar episodes before. At that time, the patient denied dizziness, abdominal pain, chest pain, shortness of breath, nausea and vomiting. Denies taking a
new medication, denies being on any anticoagulants or taking NSAI. The patient reports that she has been compliant with her medications for many years and has been taking her tacrolimus and steroid after right sided kidney transplantation. The
patient has a PMH of ESRD with kidney transplant in 2019,DM type 2, sarcoidosis with Oma syndrome (in remission), chronic pain syndrome, COPD, anxiety, depression and fibromyalgia.
Past Medical History
Past Medical History: Asthma, COPD, Fibromyalgia, HTN, NIDDM and Other ( ERSD with living unrelated renal transplant in 2019 , HLD, Chronic Pain, Fibromyalgia, Cervical radiculopathy, Anxiety/Depression, sarcoidosis with with Oma`s syndrome
(in remission), hx of leukopenia and low grade BK viremia (off MMF))
Past Surgical History: Tonsilectomy and Other (Kidneys transplant, Laparoscopic cholecystectomy, , Uterine biopsy, 2 fistulous, Back surgery, Partial hip replacement, Squamous cell removed on chest)
Social History
Tobacco: Non-Smoker
Alcohol: None
Drug: None
Personal:
Family History
Family History: Reviewed & Not Pertinent
Allergies / Home Medications
Allergy/AdvReac Type Severity Reaction Status Date / Time
bee venom protein (honey bee) Allergy Anaphylaxis Verified 06/12/24 17:57
cephalexin monohydrate Allergy abdominal Verified 06/12/24 11:45
[From Keflex] pain;
tolerated
Cefepime
cimetidine Allergy Anaphylaxis Verified 06/12/24 11:45
duloxetine [From Cymbalta] Allergy tardive Verified 06/12/24 17:57
dyskinesia
latex [Latex] Allergy Hives Verified 06/12/24 11:45
Latex, Natural Rubber Allergy Rash Verified 06/12/24 11:45
morphine Allergy 'MAKES ME Verified 06/12/24 11:45
MEAN'
omeprazole Allergy Anaphylaxis Verified 06/12/24 11:45
oxycodone HCl Allergy 'itching Verified 06/12/24 11:45
[From OxyContin] like I'm
crawling
out of my
skin'
Penicillins Allergy Hives Verified 06/12/24 11:45
Sulfa (Sulfonamide Allergy abdominal Verified 06/12/24 11:45
Antibiotics) pain
Tricyclic Antidepressants Allergy V. TACH Verified 06/12/24 11:45
and Tricy
[Tricyclic Compounds]
�Medication �Instructions �Recorded
escitalopram oxalate 20 mg tablet 20 mg PO HS Depression 06/12/19
montelukast 10 mg tablet 10 mg PO HS Allergies 06/12/19
bempedoic acid 180 mg-ezetimibe 10 1 tab PO DAILY High cholesterol 02/09/22
mg tablet (Nexlizet)
budesonide 160 mcg-glycopyr 9 2 inh inhalation R BID 02/09/22
mcg-formot 4.8 mcg/actuation HFA Lung/breathing issues
inhaler (Breztri Aerosphere)
oxycodone 5 mg tablet 10 mg PO HS Pain 02/09/22
oxycodone 5 mg tablet 5 mg PO BIDPRN PRN severe pain 04/06/22
gabapentin 300 mg capsule 300 mg PO HS 04/24/23
(Neurontin)
aripiprazole 10 mg tablet 10 mg PO HS Mental Health/Anxiety 08/15/23
nifedipine 60 mg tablet,extended 60 mg PO DAILY Blood Pressure 08/15/23
release 24 hr
prednisone 10 mg tablet 10 mg PO DAILY Anti-Inflammatory 08/15/23
carvedilol 25 mg tablet (Coreg) 25 mg PO BID 06/12/24
furosemide 20 mg tablet (Lasix) 40 mg PO DAILY 06/12/24
gabapentin 300 mg capsule 300 mg PO DAILYPRN PRN nereve pains 06/12/24
semaglutide 1 mg/dose (4 mg/3 mL) 1 mg SC MO 06/12/24
subcutaneous pen injector (Ozempic)
tacrolimus 0.5 mg capsule, 0.5 mg PO Q12H 06/12/24
immediate-release (Prograf)
Review of Systems
-
History Source: Patient
Constitutional: Reports No Symptoms
EENT: Reports No Symptoms
Respiratory: Reports No Symptoms
Cardiac: Reports No Symptoms
Abdomen/GI: Reports No Symptoms and Other (See HPI )
: Reports No Symptoms
Musculoskeletal: Reports No Symptoms
Skin: Reports No Symptoms
Neurological: Reports No Symptoms
Vital Signs
Temp Pulse Resp BP Pulse Ox
98.1 F 57 16 146/78 96
06/12/24 23:00 06/13/24 08:30 06/13/24 07:29 06/13/24 08:29 06/13/24 07:29
Physical Exam
Exam
General: Well Developed, Well Nourished and No Apparent Distress
HEENT: Normocephalic and Anicteric
Respiratory: Clear
Cardiac: S1/S2 and Regular Rhythm
GI: Soft, Non Tender, Non Distended, Normal Bowel Sounds and Other
Rectal: Brown and Hem Negative (A very small amount of stool was found. )
Musculoskeletal: No Clubbing and No Cyanosis
Skin: Warm
Neuro: Awake, Alert, Oriented, AO x 3 and Nonfocal/Grossly Intact
Results
WBC 7.9 10^3/uL (4.8-10.8) 06/13/24 04:15
Hgb 12.4 g/dL (12.0-16.0) 06/13/24 04:15
Hct 37.9 % (37.0-47.0) 06/13/24 04:15
MCV 92.9 fL (81.0-99.0) 06/13/24 04:15
Plt Count 190 10^3/uL (130-400) 06/13/24 04:15
Absolute Neuts (auto) 9.7 10^3/uL (1.4-6.5) H 06/12/24 11:56
Sodium 138 mmol/L (135-145) 06/13/24 04:15
Potassium 3.8 mmol/L (3.5-5.1) 06/13/24 04:15
Chloride 102 mmol/L (98-107) 06/13/24 04:15
Carbon Dioxide 27 mmol/L (22-30) 06/13/24 04:15
BUN 34 mg/dl (7-17) H 06/13/24 04:15
Creatinine 2.1 mg/dL (0.6-1.0) H 06/13/24 04:15
Calcium 8.9 mg/dl (8.4-10.2) 06/13/24 04:15
Total Bilirubin 0.8 mg/dl (0.2-1.3) 06/12/24 11:56
AST 18 U/L (14-36) 06/12/24 11:56
ALT 16 U/L (0-35) 06/12/24 11:56
Alkaline Phosphatase 88 U/L (38-126) 06/12/24 11:56
Diagnostic Image Results:
Abdominal MRI 01/07/2023
IMPRESSION:
1. Severe bilateral renal atrophy.
2. Large number of bilateral renal cysts (some hemorrhagic cysts) which have increased in size and number since 04/01/2016.
3. 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
4. Pancreatic cysts measuring up to 1.5 cm in size in the body of the pancreas and diffuse pancreatic ductal dilatation raising the possibility of an intraductal papillary mucinous tumor (IPMT). Chronic pancreatitis is an alternative diagnostic
possibility.
5. Mild to moderate biliary dilatation which is likely secondary to previous cholecystectomy.
6. Mild hepatomegaly.
7. Severe calcific atherosclerotic plaque in the abdominal aorta.
Prior GI Procedures:
EGD:
07/18/23
ENDOSCOPIC FINDING: :
The examined esophagus was normal.
No gross lesions were noted in the entire examined stomach.
The duodenal bulb, first portion of the duodenum and second portion of
the duodenum were normal.
ENDOSONOGRAPHIC FINDING: :
The region of the celiac plexus and celiac ganglia was visualized.
An anechoic and septated lesion suggestive of a cyst was identified in
the pancreatic body. This was multiloculated and septated. It appears to
communicate with the pancreatic duct. The lesion measured 14 mm by 10 mm
in maximal cross-sectional diameter. There was a single compartment
thinly septated. The outer wall of the lesion was not seen. There was no
associated mass. There was no internal debris within the fluid-filled
cavity. Diagnostic needle aspiration for fluid was performed. Color
Doppler imaging was utilized prior to needle puncture to confirm a lack
of significant vascular structures within the needle path. Two passes
were made with the 22 gauge needle using a transgastric approach. No
stylet was used. The amount of fluid collected was 1 mL. The fluid was
clear. Sample(s) were sent for amylase concentration, glucose, and CEA.
Conglomerate of anechoic lesions suggestive of multiple cysts were
identified in the pancreatic head. The largest lesion measured 4 mm by 5
mm in maximal cross-sectional diameter. There was no associated mass.
The pancreatic duct had a dilated endosonographic appearance in the
pancreatic head and genu of the pancreas. The pancreatic duct measured
up to 5 mm in diameter.
There was dilation in the common bile duct which measured up to 11 mm.
There was no sign of significant endosonographic abnormality in the
ampulla.
There was no sign of significant endosonographic abnormality in the left
lobe of the liver.
Impression: - Normal esophagus.
- No gross lesions in the entire stomach.
- Normal duodenal bulb, first portion of the duodenum
and second portion of the duodenum.
- A multiloculated and septated cystic lesion was seen
in the pancreatic body. Fine needle aspiration for
fluid performed.
- Conglomerate of multiple cystic lesions were seen in
the pancreatic head.
- The pancreatic duct had a dilated endosonographic
appearance in the pancreatic head and genu of the
pancreas. The pancreatic duct measured up to 5 mm in
diameter.
- There was dilation in the common bile duct which
measured up to 11 mm.
- There was no sign of significant pathology in the
ampulla.
- There was no evidence of significant pathology in
the left lobe of the liver.
Colonoscopy: 07/17/2015
Findings:
A sessile polyp was found in the descending colon. The polyp was 6 mm in
size. This was biopsied with a cold large-capacity forceps for histology.
Non-bleeding internal hemorrhoids were found during retroflexion and
were small.
No other significant abnormalities were identified in a careful
examination of the remainder of the colon.
Impression: - One 6 mm polyp in the descending colon. Biopsied.
- Non-bleeding internal hemorrhoids.
Assessment / Plan
-
Assessment
Impression: Ms Ching is a 68 year old [place] female who admitted to [facility] for an evaluation of a possible bleeding from rectal area. The patient reports she saw a red-bright colored blood in toilet bowl yesterday, but she believes it came from
her rectal area even she is not quite sure. The patient denies any stool, blood clots in toilet bowl. She denies any associated symptoms like having a similar episodes of hematochezia in the past, denies any episodes of dark colored stools, denies
diarrhea, abdominal pain, vomiting, nausea. She lastly had home-cooked turkey chilly 2 days ago. The patient reports having regular bowel movements likely once daily. Her last colonoscopy was performed in 2015 which showed a sessile polyp in the
descending colon and non-bleeding internal hemorrhoids. Her last EGD was performed in 2023 which was not significant for a gastric/duodenal problem. No mass was palpated on her rectal exam and hemoccult test resulted negative at bed side. Her recent
lab results shows a slightly decreased level of hgb to 12.4 (13.9 at admission on 06/12/24), slightly elevated PT levels to 15.8, slightly elevated APTT levels to 43.8, normal INR 1.24, UA with 2+ occult blood on 06/12/24.
Problem List
Possible GI bleeding likely from lower GI possibly from hemorrhoids
CKD 4 (baseline Cr levels at 2-2.4)
Living unrelated kidney transplant in 2019
HTN
Sarcoidosis(in remission)
Hx of leukopenia and low grade BK viremia (off [employer])
COPD
Fibromyalgia
HLD
Chronic Pain
Anxiety/Depression
#Possible lower GI bleeding likely from hemorrhoids
-No hx of GI bleeding
-Endoscopy in 2023: No gastric/duodenal problem
-Colonoscopy in 2015 with a sessile polyp and internal hemorrhoids
- Hgb level slightly decreased from 13.9 to 12.4 since admission yesterday
-No symptoms of active GI bleeding/No last bowel moment since admission
-Patient is uncertain if it was fro rectal area/UA 2+ for occult blood on 06/12
-Hx of kidney transplant under the treatment with tacrolimus and prednisone
Plan
-Follow up hgb levels daily
-Follow up CMP
-Follow up bowel movements
-Repeating UA can be considered/Cr is likely at baseline/Nephrology is on board
-Not on any anticoagulant
-Performing colonoscopy as outpatient setting is planned
-A suppository was ordered
-
-
Thank you for consultation and allowing me to participate in the patient's care. Please call the forming yardage control operator GI physician during the after hours with any questions or concerns.
--- NOTE | 2024-06-13 09:22 | W.PN.HOSP.TC ---
Addendum entered and electronically signed by Yovanny Gonzales MD 06/13/24 23:44:
Attending Addendum:
I saw and evaluated the patient. I reviewed the resident�s note and agree with findings and plan as documented in the resident�s note. Sub: no further BRBPR wants to go home. told diet. no abd pain N/V Full 12 point ROS reviewed and negative except
as documented Exam: Vitals reviewed in chart GEN-NAD heart RRR lungs clear bad soft NT LE no edema
# GI bleed
-Hemoglobin stable at 13.0
-advance diet
-PPI on DC
-GI consult- Start miralax daily
- Anusol supp x10 days QHS
- Plan for outpatient colonoscopy Monday 06/19 my office will arrange. She will need long 2 day prep slow with Golylte given CKD
-stable for dc
# Leukocytosis likely stress reaction
-resolved
# Chronic kidney disease stage IIIb
-Creatinine 2.1
-Status post renal transplant
Continue immunosuppression prednisone/tacrolimus
-Nephrology input appreciated
#COPD.
Without exacerbation. No bronchospasm on exam.
Not on O2 supplementation at home.
Nebs from home continued
Singular continued
#IDDM.
Continue basal bolus protocol.
Carbohydrate controlled diet.
restart Ozempic
#Essential hypertension
Continue nifedipine and Coreg monitor for hypotension
# Hyperlipidemia
-nexilzet continued
#Chronic pain syndrome/fibromyalgia/opioid dependence
Continue oxycodone gabapentin.
# Anxiety
-Abilify continued
-Citalopram continued
DVT prophylaxis SCDs
Full code
Time spent coordinating care, DC planning, review of DC plan of care with resident, transition of care, review of records, med rec/scripts sent electronically, consults, notes, d/w consultants, nursing, GI and CM� 32 mins
Original Note:
Today's Communication/Plan
-
GI consult
May advance diet if no plans for procedures by GI
Hold lasix per nephro
Continue to monitor hemoglobin and BMP
Assessment / Plan
Assessment / Plan
68-year-old female presented to ED complaining of 2 episodes of bright red blood per rectum with defecation. Denies seeing any blood clots. She is not sure of the amount of blood but mentions it filled the toilet bowl. Denies any abdominal pain,
nausea, vomiting. Denies being constipated before this happened. She is not on any blood thinners. Denies previous GI bleeding.She felt a bit lightheaded and went to her primary care physician's office prior to presenting, where she was noted to
be hypotensive and referred to the ED. On arrival, vital signs are stable. BUN elevated at 37. Hemoglobin 13.9.
Chronic conditions prior to admission
Insulin-dependent diabetes type II
Kidney transplant
CKD stage IV
Essential hypertension
Hyperlipidemia
Obesity
Asthma
COPD
Colon tubular adenoma
family history of colon polyps
GERD
Cervical radiculopathy
Pulmonary sarcoidosis
Depression/anxiety
Fibromyalgia/ Chronic pain syndrome
Cholecystectomy
# Bright red bleeding per rectum
-Vitals remained stable-not hypotensive or tachycardic
-Has not had any bowel movement/bleeding episodes since admission
-Hemoglobin stable this a.m. at 12.4
-Last colonoscopy (07/17/15): Tubular adenoma without high-grade dysplasia or malignancy
-Last endoscopy (11/09/2021): reactive duodenopathy with patchy gastric foveolar metaplasia and Sharri�s gland hyperplasia and small intestine and third part duodenum
-GI consulted
-Currently on clear liquids
-Continue to monitor hemoglobin
-May advance diet if no plans for procedures by GI
-Blood transfusion consent obtained
# CKD stage IV
-Status post kidney transplant-receiving immunosuppressant therapy with tacrolimus 0.5 mg twice daily and prednisone 10 mg daily
-SIMBA improved with fluid therapy
-urinalysis positive for blood but not RBC
-Nephrology consulted- appreciate input-hold Lasix-continue current immunosuppressive regimen
-Tacrolimus level -pending
-Creatinine at baseline- continue to monitor BMP
# Asthma/COPD
-Bilateral wheezing heard on auscultation
-Patient not on O2 supplementation at home.
-Continue home nebs as needed for SOB
- Singular continued
# Essential HTN
-Currently controlled
-Continue home nifedipine
# Depression/anxiety
-Continue home escitalopram and Gabapentin
# Insulin-dependent diabetes type II
- low scale SSI
-Accu-Chek
-Check hemoglobin A1c
-Hold Ozempic for now
# GERD
-Continue Protonix 40
# Chronic pain syndrome/fibromyalgia
-Continue oxycodone 5 as needed
-Continue gabapentin 300 as needed
DVT prophylaxis
SCD
Full code
PCP: Brenda Braga
Anticipated Discharge: Within 24 hours
Subjective/Interval History
-
Date of Service: June 13, 2024
Does not offer any complaints. Has not had any bowel movements since admission.
Objective Data
-
Labs:
Laboratory Results
06/13/24 06/13/24
04:00 04:15
WBC 7.9
Hgb Cancelled 12.4
Hct Cancelled 37.9
Plt Count 190
Sodium 138
Potassium 3.8
Chloride 102
Carbon Dioxide 27
BUN 34 H
Creatinine 2.1 H
Glucose 85
Calcium 8.9
Vital Signs:
Vital Signs
Temp Pulse Resp BP Pulse Ox
98.4 F 57 16 146/78 96
06/13/24 07:30 06/13/24 08:30 06/13/24 07:30 06/13/24 08:29 06/13/24 07:30
I&O
06/12/24 06/13/24 06/14/24
06:59 06:59 06:59
Intake Total 240 / 240
Balance 240 / 240
Review of Systems
-
History Source: Patient
All other systems: Reviewed and negative
Physical Exam
-
Respiratory: Wheezes (Bilateral), Non Labored Respirations and Other (Saturating well on room air without any shortness of breath)
Cardiac: Regular Rhythm and S1/S2
GI: Soft, Nontender, Nondistended and Normal Bowel Sounds
Musculoskeletal: Edema, Right Lower Extrem and Edema, Left Lower Extrem
Neuro: Awake, Alert and Oriented
[2024-06-13 09:45] LABS: Glycohemoglobin (HgbA1c) 5.5 % (4.0-5.6)
--- NOTE | 2024-06-13 10:59 | CM ---
Addendum entered by Autumn Bradshaw 06/13/24 15:42:
Pt stable for d/c.
Met w/ pt bedside, pt agreeable to d/c
IMM reviewed, pt given copy, copy placed in chart
Per pt, spouse will transport home
No CM needs identified at this time
Plan: Home; no needs
Original Note:
Pt seen bedside. Initial assessment completed. Admitted for rectal bleed.
Pt reports that she lives w/ spouse in a single story home- 8 steps to enter. Pt is independent w/ ambulating, does not require device. Pt states she has a RW and a cane at home but does not need or use. Pt shares she has O2 at home that she no
longer requires. Pt stated she required O2 when she had pneumonia in July, pt states supplier is coming to [employer] [employer]. No other DME identified
Pt shared she was at [facility] in the past for rehab. Pt was prev known to [facility] and [facility] services in the past.
Address, point of contact and insurance verified
PCP: Dr. Brenda Braga
[facility]
Plan: Anticipate home; no needs
CM will cont to follow hospital course
--- NOTE | 2024-06-13 11:22 | W.PN.NEPH.PH ---
Today's Communication / Plan
-
Holding Lasix. Continue immunosuppressive medication
Assessment/Plan
-
Assessment:
Bright red blood per rectum
CKD 4 (bl Cr ~2-2.4)
Living unrelated kidney transplant at [facility] in 2018
HTN
sarcoidosis
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
COPD
Fibromyalgia
HLD
Chronic Pain
Anxiety/Depression
Plan:
Follow hemoglobin
GI evaluation pending
Follow BMP, creatinine at baseline
Holding Lasix
Continue tacrolimus 0.5 mg twice daily with prednisone 10 mg daily
-
-
Date of Service: June 13, 2024
CC / HPI / ROS
-
Chief Complaint:
Bright red blood per rectum
History of Present Illness:
Acute on chronic kidney disease status post renal transplant
Review of Systems:.
No chest pain or shortness of breath.
No bowel movement yet today
Labs
-
Labs:
WBC 7.9 10^3/uL (4.8-10.8) 06/13/24 04:15
RBC 4.08 10^6/uL (4.20-5.40) L 06/13/24 04:15
Hgb 12.4 g/dL (12.0-16.0) 06/13/24 04:15
Hct 37.9 % (37.0-47.0) 06/13/24 04:15
Plt Count 190 10^3/uL (130-400) 06/13/24 04:15
Sodium 138 mmol/L (135-145) 06/13/24 04:15
Potassium 3.8 mmol/L (3.5-5.1) 06/13/24 04:15
Chloride 102 mmol/L (98-107) 06/13/24 04:15
Carbon Dioxide 27 mmol/L (22-30) 06/13/24 04:15
BUN 34 mg/dl (7-17) H 06/13/24 04:15
Creatinine 2.1 mg/dL (0.6-1.0) H 06/13/24 04:15
eGFR 25.35 06/13/24 04:15
Glucose 85 mg/dl (70-99) 06/13/24 04:15
Calcium 8.9 mg/dl (8.4-10.2) 06/13/24 04:15
Albumin 4.0 g/dl (3.5-5.0) 06/12/24 11:56
Physical Exam
-
Vital Signs:
Vital Signs
Temp Pulse Resp BP Pulse Ox
98.4 F 57 16 146/78 96
06/13/24 07:30 06/13/24 08:30 06/13/24 07:30 06/13/24 08:29 06/13/24 07:30
Cardiovascular:: Regular rate and rhythm
Respiratory:: Bilateral: CTA
Lung Excursion:: Normal
Abdomen:: Nontender and Soft
Bowel Sounds:: Normal
Extremity Edema:: None: Bilateral:
Botello Catheter: No
[2024-06-13 12:23] LABS: Glucose - Point of Care 129 mg/dl (70-99)
[2024-06-13] MEDS: ANUSOL HC 25 MG RECTAL (13:22)
[2024-06-13 15:00] VITALS: BP 108/50
--- NOTE | 2024-06-13 19:44 | W.DCSUMMARY ---
Addendum entered and electronically signed by Yovanny Gonzales MD 06/13/24 23:45:
Read, reviewed, and agree. See same day progress note for additional details.
Abdoul Gonzales MD
Original Note:
Documented by User: John Dave MD, Resident 06/13/24 19:55
Discharge Summary
Discharge Data
Date of Admission: 06/12/24
Date of Discharge: 06/13/24
-
Pending Results: No
Hospital Course
Patient is a 68-year-old female with chronic opioid use who presented to ED reporting 2 episodes of bright red blood per rectum with defecation. Denied seeing any blood clots. Denied any abdominal pain, nausea, vomiting or being recently
constipated. She was not on any blood thinners. Did mention history of hemorrhoids in the past. she had felt lightheaded after the bleeding and was noted to be hypotensive at PCP office,thus, referred to the ED. On arrival, vital signs were
stable. BUN elevated at 37. Hemoglobin 13.9.
Last colonoscopy (07/17/15): Tubular adenoma without high-grade dysplasia or malignancy
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
Problem list:
1. Bright red bleeding per rectum
Hemoglobin this a.m. was stable at 12.4. Patient had one episode of bowel movement during stay which was not bloody or black. Hemodynamics remained stable. Per GI, this was most likely hemorrhoid bleeding in the setting of opioid use, given stable
hemoglobin. GI recommended starting MiraLAX daily and Anusol suppository for 10 days every night. GI scheduled for for outpatient colonoscopy on 06/19.
2. GERD
Patient is status post renal transplant on immunotherapy suppressive therapy, and has been receiving prednisone 10 mg for years. We recommend lifelong Protonix 40mg.
3. Other chronic conditions were managed as previous to admission.
Discharge Plan
-
Patient Disposition: Home (Routine Discharge)
Discharge Diagnosis/Procedures: Bright red blood per rectum most likely hemorrhoidal bleeding
Condition: Good
Diet: Low Fat, 2 Gram Sodium and Diabetic, Carb Controlled
Activity: No restrictions
Driving Restrictions: As prior to admission
Bathing Restrictions: None
Referrals:
Jailene Ballard MD [Active] - (She was scheduled on on 06/19/[address] Jailene Ballard for a colonoscopy. )
Brenda Braga PA-C [Family Provider] -
Prescriptions:
New
polyethylene glycol 3350 17 gram Powder In Packet
17 g PO DAILY 30 Days Qty: 30 0RF
pantoprazole [Protonix] 40 mg tablet,delayed release (/EC)
40 mg PO DAILY Qty: 30 0RF
hydrocortisone acetate [Anusol-HC] 25 mg suppository
25 mg TN HS 10 Days Qty: 12 0RF
Continued
montelukast 10 MG tablet
10 mg PO HS
escitalopram oxalate 20 MG tablet
20 mg PO HS
oxycodone 5 mg tablet
10 mg PO HS
Patient Comments:
02/09/2022: last filled 01/27/22, 120 tabs for 30 days from [facility]
Nexlizet 180-10 mg Tablet
1 tab PO DAILY
Breztri Aerosphere 160-9-4.8 mcg/actuation HFA aerosol inhaler
2 inh INHALATION R BID
oxycodone 5 mg Tablet
5 mg PO BIDPRN PRN (Reason: severe pain)
gabapentin [Neurontin] 300 mg Capsule
300 mg PO HS
nifedipine 60 mg Tablet Extended Release 24hr
60 mg PO DAILY
prednisone 10 mg tablet
10 mg PO DAILY
aripiprazole 10 MG tablet
10 mg PO HS
carvedilol [Coreg] 25 mg Tablet
25 mg PO BID
gabapentin 300 mg Capsule
300 mg PO DAILYPRN PRN (Reason: nereve pains)
furosemide [Lasix] 20 mg Tablet
40 mg PO DAILY
tacrolimus [Prograf] 0.5 mg Capsule
0.5 mg PO Q12H
Ozempic 1 mg/dose (4 mg/3 mL) Pen Injector
1 mg SC MO
Discharge Orders:
Discharge Patient (As Directed); Ordered 06/13/24
Ordered By: John Dave
Discharge Date and Time
Discharge Date/Time: 06/13/24 17:12
Print Language: AUSTRIAN

Documented by User: Yovanny Gonzales MD 06/13/24 23:39
Discharge Summary
Discharge Data
Date of Admission: 06/12/24
Date of Discharge: 06/13/24
Discharge Plan
-
Patient Disposition: Home (Routine Discharge)
Discharge Diagnosis/Procedures: Bright red blood per rectum most likely hemorrhoidal bleeding
Condition: Good
Diet: Low Fat, 2 Gram Sodium and Diabetic, Carb Controlled
Activity: No restrictions
Driving Restrictions: As prior to admission
Bathing Restrictions: None
Referrals:
Jailene Ballard MD [Active] - (She was scheduled on on 06/19/[address] Jailene Ballard for a colonoscopy. )
Brenda Braga PA-C [Family Provider] -
Prescriptions:
New
polyethylene glycol 3350 17 gram Powder In Packet
17 g PO DAILY 30 Days Qty: 30 0RF
pantoprazole [Protonix] 40 mg tablet,delayed release (DR/EC)
40 mg PO DAILY Qty: 30 0RF
hydrocortisone acetate [Anusol-HC] 25 mg suppository
25 mg TN HS 10 Days Qty: 12 0RF
Continued
montelukast 10 MG tablet
10 mg PO HS
escitalopram oxalate 20 MG tablet
20 mg PO HS
oxycodone 5 mg tablet
10 mg PO HS
Patient Comments:
02/09/2022: last filled 01/27/22, 120 tabs for 30 days from [facility]
Nexlizet 180-10 mg Tablet
1 tab PO DAILY
Breztri Aerosphere 160-9-4.8 mcg/actuation HFA aerosol inhaler
2 inh INHALATION R BID
oxycodone 5 mg Tablet
5 mg PO BIDPRN PRN (Reason: severe pain)
gabapentin [Neurontin] 300 mg Capsule
300 mg PO HS
nifedipine 60 mg Tablet Extended Release 24hr
60 mg PO DAILY
prednisone 10 mg tablet
10 mg PO DAILY
aripiprazole 10 MG tablet
10 mg PO HS
carvedilol [Coreg] 25 mg Tablet
25 mg PO BID
gabapentin 300 mg Capsule
300 mg PO DAILYPRN PRN (Reason: nereve pains)
furosemide [Lasix] 20 mg Tablet
40 mg PO DAILY
tacrolimus [Prograf] 0.5 mg Capsule
0.5 mg PO Q12H
Ozempic 1 mg/dose (4 mg/3 mL) Pen Injector
1 mg SC MO
Discharge Orders:
Discharge Patient (As Directed); Ordered 06/13/24
Ordered By: John Dave
Discharge Date and Time
Discharge Date/Time: 06/13/24 17:12
Print Language: AUSTRIAN
== END 2024-06-13 17:12 | disposition home or self-care (01) | DRG 394 ==
LOC: 4 WEST ACU 16:16
PROVIDERS: Emergency Medicine; Registered Nurse; ADMITTING PHYSICIAN Internal Medicine; ATTENDING PHYSICIAN Family Medicine; CONSULT PHYSICIAN Internal Medicine Gastroenterology; EMERGENCY PHYSICIAN Student in an Organized Health Care Education/Training Program; FAMILY PHYSICIAN Physician Assistant; OTHER PHYSICIAN Specialist
DX: K64.8 Other hemorrhoids (principal); D84.821 Immunodeficiency due to drugs; Z94.0 Kidney transplant status; F11.20 Opioid dependence, uncomplicated; N18.4 Chronic kidney disease, stage 4 (severe); F41.9 Anxiety disorder, unspecified; F32.A Depression, unspecified; M79.7 Fibromyalgia; G89.4 Chronic pain syndrome; E11.22 Type 2 diabetes mellitus with diabetic chronic kidney disease; M54.12 Radiculopathy, cervical region; D86.0 Sarcoidosis of lung; Z87.891 Personal history of nicotine dependence; Z96.649 Presence of unspecified artificial hip joint; Z88.5 Allergy status to narcotic agent; Z91.040 Latex allergy status; Z88.0 Allergy status to penicillin; Z88.2 Allergy status to sulfonamides; Z79.85 Long-term (current) use of injectable non-insulin antidiabetic drugs; Z79.60 Long term (current) use of unspecified immunomodulators and immunosuppressants; K21.9 Gastro-esophageal reflux disease without esophagitis; Z90.49 Acquired absence of other specified parts of digestive tract; G24.9 Dystonia, unspecified; D72.819 Decreased white blood cell count, unspecified; E78.00 Pure hypercholesterolemia, unspecified; J44.89 Other specified chronic obstructive pulmonary disease; Z86.0100 Personal history of colon polyps, unspecified; Z80.3 Family history of malignant neoplasm of breast; I12.9 Hypertensive chronic kidney disease with stage 1 through stage 4 chronic kidney disease, or unspecified chronic kidney disease
CPT/HCPCS: 80048; 80053; 80197; 81003; 81015; 82962; 83036; 85014; 85018; 85025; 85027; 86850; 86900; 86901; 94640; 99285

== ENCOUNTER 2024-11-14 06:19 | Day surgery (SDC) | payer OTHER, SELFPAY ==
[2024-11-14 11:06] LABS: Glucose - Point of Care 99 mg/dl (70-99)
== END 2024-11-14 12:20 | disposition home or self-care (01) ==
LOC: GI 06:19
PROVIDERS: ATTENDING PHYSICIAN Internal Medicine Gastroenterology
DX: Z12.11 Encounter for screening for malignant neoplasm of colon (principal); K64.8 Other hemorrhoids; K57.30 Diverticulosis of large intestine without perforation or abscess without bleeding; K63.5 Polyp of colon
CPT/HCPCS: 45380; 82962; 88305

== ENCOUNTER → 2024-12-23 09:44 | Outpatient (REF) | payer OTHER, SELFPAY | LOC: PAVMRI 09:44 | PROVIDERS: ATTENDING PHYSICIAN Physician Assistant Surgical; FAMILY PHYSICIAN Physician Assistant | DX: M48.062 Spinal stenosis, lumbar region with neurogenic claudication (principal); G95.9 Disease of spinal cord, unspecified | CPT/HCPCS: 72141; 72148 ==

== ENCOUNTER 2025-01-29 14:09 | Emergency (ER) | payer OTHER, SELFPAY ==
[2025-01-29 14:18] VITALS: BP 124/66
[2025-01-29 14:48] LABS: Hematocrit 33.0 % (37.0-47.0); Hemoglobin 11.3 g/dL (12.0-16.0); Mean Corp Hgb Conc. 34.2 g/dL (33.0-37.0); Mean Corpuscular Volume 90.7 fL (81.0-99.0); Nucleated Red Blood Cells % 0 %; Platelet Count 252 10^3/uL (130-400); Red Cell Dist. Width 14.6 % (11.5-14.5)
[2025-01-29 14:51] LABS: Urine Character Clear (Clear)
[2025-01-29 15:06] LABS: ALT (SGPT) 10 U/L (0-35); AST (SGOT) 14 U/L (14-36); Albumin 3.6 g/dl (3.5-5.0); Alkaline Phosphatase 66 U/L (38-126); Blood Urea Nitrogen 52 mg/dl (7-17); Calcium 8.8 mg/dl (8.4-10.2); Carbon Dioxide 18 mmol/L (22-30); Chloride 111 mmol/L (98-107); Glucose 103 mg/dl (70-99); Potassium 4.2 mmol/L (3.5-5.1); Sodium 137 mmol/L (135-145); Total Protein 6.1 g/dl (6.3-8.2); eGFR 17.84
[2025-01-29 15:18] LABS: Urine Urothelial Cell 0-2 /LPF (FEW)
[2025-01-29 15:20] LABS: Urine White Cell 70-80 /HPF (0-5)
[2025-01-29 16:23] VITALS: BMI 30.9
--- NOTE | 2025-01-29 16:29 | ED.GENMED ---
History of Present Illness
General
Chief Complaint: Urinary Symptoms
Time Seen by Provider: 01/29/25 16:18
History of Present Illness
History of Present Illness:
Patient presents emergency department dysuria and elevated white blood cell count. She notes that she has been having some urinary symptoms over the past week. Notes that when she urinates she feels it suddenly 'stop'. This and feels
uncomfortable. Denies flank pain or back pain. Denies nausea or vomiting. Denies fevers or chills. States she feels slightly fatigued
Past History
Past History
ED Past Medical History: Asthma, COPD, Fibromyalgia, HTN, Hypercholesterolemia, Renal failure (Status post renal transplant May 2018 right kidney), Psychiatric (Anxiety) and Other (Sarcoidosis); Negative CAD
ED Past Surgical History: Cholecystectomy and Urological (Bilateral Kidney transplants)
Social History
Tobacco: Former smoker
Alcohol: Occasional
Drug: Marijuana
Personal:
Living: with family
Employment: Employed
Family History
Family History: Hypertension, Cancer (Mother had breast cancer) and Other (Son has sarcoidosis)
Phy Exam
Physical Exam
Physical Exam:
GENERAL APPEARANCE: NAD, well developed/ well nourished
EYES lids/conjunctiva normal
EARS/NOSE/THROAT Mucous membranes moist, uvula midline without oral pharyngeal erythema, exudate or swelling
HEAD/NECK normocephalic atraumatic, neck is supple.
RESPIRATORY respiratory effort normal, speaks in full sentences, no accessory muscle use. Lungs clear to auscultation without rhonchi, wheezes, rales
CARDIAC Regular rate and rhythm, no edema.
ABDOMINAL Soft, ND/NT. No pulsatile masses on exam, rebound tenderness, Ridley sign or pain over Mcburney's point.
MUSCLES/EXTREMITIES No abnormal range of motion, no swelling.
SKIN Warm, pink and dry. No rashes
NEUROLOGICAL Speech is clear and appropriate. Normal level of consciousness. 5/5 strength in all extremities.
PSYCH Normal mood and affect. Judgement/competence is appropriate
Course
Orders/Labs/Results
Orders:
Orders
01/29/25 14:31
Complete Blood Count/With Diff Urgent
Comprehensive Metabolic Panel Urgent
Urinalysis Reflex To Culture Urgent
Date Specimen was Collected: 01/29/25
Time Specimen was Collected: 14:22
Urine Microscopic Reflex Cult Urgent
Urine Culture Urgent
MATT Source: U
Specimen Description:
Date Specimen was Collected: 01/29/25
Time Specimen was Collected: 14:22
01/29/25 16:22
0.9% Sodium Chloride 1000 ml [Nss] 1,000 ml IV BOLUS
01/29/25 16:29
Ciprofloxacin 200 mg/[id number] [Cipro 200 mg] 100 ml IV ONCE
01/29/25 18:00
Ciprofloxacin 200 mg/[id number] [Cipro 200 mg] 100 ml IV ONCE
Abnormal Lab Results
01/29/25
14:31
WBC 13.7 H 10^3/uL
(4.8-10.8)
RBC 3.64 L 10^6/uL
(4.20-5.40)
Hgb 11.3 L g/dL
(12.0-16.0)
Hct 33.0 L %
(37.0-47.0)
RDW 14.6 H %
(11.5-14.5)
Abs Immat Gran (auto) 0.6 H 10^3/uL
(0-0.05)
Absolute Neuts (auto) 11.6 H 10^3/uL
(1.4-6.5)
Absolute Lymphs (auto) 0.7 L 10^3/uL
(1.2-3.4)
Absolute Monos (auto) 0.7 H 10^3/uL
(0.1-0.6)
Immature Gran % 4.0 H %
(0-0.5)
Neutrophils % 84.8 H %
(42.2-75.2)
Lymphocytes % 4.9 L %
(20.5-51.1)
Chloride 111 H mmol/L
(98-107)
Carbon Dioxide 18 L mmol/L
(22-30)
BUN 52 H mg/dl
(7-17)
Creatinine 2.8 H mg/dL
(0.6-1.0)
Glucose 103 H mg/dl
(70-99)
Total Protein 6.1 L g/dl
(6.3-8.2)
Ur Occult Blood Reflex 2+ A
(Negative)
Leukocyte Esterase Rfl 3+ A
(Negative)
Urine RBC 3-6 A /HPF
(0-2)
Urine WBC (Reflex) 70-80 A /HPF
(0-5)
Urine Bacteria (Reflex) Few A
(Negative)
Urine Albumin (Reflex) 2+ A
(Neg - Trace)
01/29/25 14:31
01/29/25 14:31
Vital Signs
Initial and Last Documented VS:
Initial Vital Signs
Temp Pulse Resp BP Pulse Ox
98.0 F 50 18 124/66 96
01/29/25 14:18 01/29/25 14:18 01/29/25 14:18 01/29/25 14:18 01/29/25 14:18
Last Documented Vital Signs
Temp Pulse Resp BP Pulse Ox
98.0 F 50 18 130/53 97
01/29/25 14:18 01/29/25 14:18 01/29/25 14:18 01/29/25 19:00 01/29/25 19:00
*Pulse Oximetry
SaO2: 96
Oxygen Mode of Delivery: Room air
Patient hypoxic: no
*Critical Care Note
Total Time (30-74mins, 75-104mins- exclusive of procedures): Not Applicable
ED Attending Note
ED Attending Note
ED Attending Note:
Patient with uncomplicated UTI. She is afebrile. She is hemodynamically stable. There is no evidence of pyelonephritis at this time. Will give a dose of IV antibiotics given age and comorbidities and discharge with p.o. antibiotics.
-
Portions of this chart may have been created with voice recognition software.� Occasional wrong word or��sound alike� substitutions may have occurred due to the inherent limitations of voice recognition software.
Discharge Plan
Departure
Patient Disposition: Home (Routine Discharge)
Date of Disposition: 01/29/25
Time of Disposition: 18:23
Patient with high blood pressure during this ER visit?: No
Discharge Problem:
Acute UTI
Prescriptions:
New
ciprofloxacin HCl 250 mg tablet
250 mg PO BID Qty: 14 0RF
No Action
montelukast 10 MG tablet
10 mg PO HS
escitalopram oxalate 20 MG tablet
20 mg PO HS
oxycodone 5 mg tablet
10 mg PO HS
Patient Comments:
02/09/2022: last filled 01/27/22, 120 tabs for 30 days from [facility]
Nexlizet 180-10 mg Tablet
1 tab PO DAILY
Breztri Aerosphere 160-9-4.8 mcg/actuation HFA aerosol inhaler
2 inh INHALATION R BID
oxycodone 5 mg Tablet
5 mg PO BIDPRN PRN (Reason: severe pain)
gabapentin [Neurontin] 300 mg Capsule
300 mg PO HS
nifedipine 60 mg Tablet Extended Release 24hr
60 mg PO DAILY
prednisone 10 mg tablet
10 mg PO DAILY
aripiprazole 10 MG tablet
10 mg PO HS
carvedilol [Coreg] 25 mg Tablet
25 mg PO BID
gabapentin 300 mg Capsule
300 mg PO DAILYPRN PRN (Reason: nereve pains)
furosemide [Lasix] 20 mg Tablet
40 mg PO DAILY
tacrolimus [Prograf] 0.5 mg Capsule
0.5 mg PO Q12H
Ozempic 1 mg/dose (4 mg/3 mL) Pen Injector
1 mg SC MO
polyethylene glycol 3350 17 gram Powder In Packet
17 g PO DAILY 30 Days Qty: 30 0RF
pantoprazole [Protonix] 40 mg tablet,delayed release (DR/EC)
40 mg PO DAILY Qty: 30 0RF
hydrocortisone acetate [Anusol-HC] 25 mg suppository
25 mg DE HS 10 Days Qty: 12 0RF
Referrals:
Brenda Braga PA-C [Family Provider, Internal Medicine]
Interventions
Interventions:
*Risk Screen - Suicide Last Done: 01/29/25 14:18
*General Assessment Last Done: 01/29/25 16:23
*Neglect/Abuse Screening Last Done: 01/29/25 14:18
*ED- Fall Risk Assessment Last Done: 01/29/25 16:23
*ED COVID-19 Vaccine History Last Done: 01/29/25 16:23
*ED Influenza Vaccine History Last Done: 01/29/25 16:23
*Nursing Disposition Last Done: 01/29/25 19:27
ED-Female Genitourinary Assessment Last Done: 01/29/25 16:25
Discharge Date and Time
Discharge Date/Time: 01/29/25 19:31
Print Language: AUSTRALIAN
[2025-01-29 17:06] VITALS: BP 158/82
[2025-01-29] MEDS: CIPRO 200 MG 100 IV (17:11)
[2025-01-29] MEDS: NSS 1000 IV (17:11)
[2025-01-29 18:00] VITALS: BP 132/51
[2025-01-29 19:00] VITALS: BP 130/53
== END 2025-01-29 19:31 | disposition home or self-care (01) ==
LOC: EMR 14:09
PROVIDERS: Emergency Medicine; EMERGENCY PHYSICIAN Emergency Medicine; FAMILY PHYSICIAN Physician Assistant
DX: N39.0 Urinary tract infection, site not specified (principal); I10 Essential (primary) hypertension; E78.00 Pure hypercholesterolemia, unspecified; D86.9 Sarcoidosis, unspecified; J44.89 Other specified chronic obstructive pulmonary disease; F41.9 Anxiety disorder, unspecified; M79.7 Fibromyalgia; Z94.0 Kidney transplant status; Z87.891 Personal history of nicotine dependence; Z82.49 Family history of ischemic heart disease and other diseases of the circulatory system; Z84.89 Family history of other specified conditions
CPT/HCPCS: 99284; 96374; 96361; 80053; 81003; 81015; 85025; 87086